=== PATIENT | female | born 1970 | race Caucasian/White ===

== ENCOUNTER → 2020-08-26 08:17 | Outpatient (BNVA) | payer BC, SELFPAY | PROVIDERS: PCP Internal Medicine; Visit Provider Internal Medicine | DX: I25.10 Atherosclerotic heart disease of native coronary artery without angina pectoris (principal); E78.5 Hyperlipidemia, unspecified; E66.01 Morbid (severe) obesity due to excess calories; Z95.1 Presence of aortocoronary bypass graft | CPT/HCPCS: 93005 ==

== ENCOUNTER → 2021-10-12 13:58 | Outpatient (BNVA) | payer BC, SELFPAY | PROVIDERS: PCP Physician Assistant; Visit Provider Internal Medicine | DX: I25.10 Atherosclerotic heart disease of native coronary artery without angina pectoris (principal); E78.5 Hyperlipidemia, unspecified; E66.01 Morbid (severe) obesity due to excess calories; Z95.1 Presence of aortocoronary bypass graft | CPT/HCPCS: 93005 ==

== ENCOUNTER 2023-03-06 12:35 | Outpatient (AMB) | payer BC, SELFPAY ==
--- NOTE | 2023-03-06 12:57 | A.OFFVIS_ITS ---
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 To recall, in the past, she had chest pain which led to diagnosis of non ST elevation myocardial infarction. Then underwent cardiac catheterization followed by bypass. Only risk factor is family history but nothing else of significance. Since last seen, no new complaints. 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 She has a treadmill that she walks on. Weight is still an issue and in fact it has gone up by several lb since last time. [facility] Surgical History History of coronary artery bypass graft x 3 (~05/10/18) Family History Father CVD (cardiovascular disease) Mother CVD (cardiovascular disease) Social History Patient Tobacco Use Status: Never used Tobacco Review of Systems Const Denies weakness ENT Denies dizziness Card Denies chest pain, Denies chest pain with activity, Denies syncope, Denies rapid heart rate, Denies pedal edema, Denies edema, Denies leg edema, Denies lightheadedness, Denies palpitations, Denies dyspnea, Denies dyspnea on exertion and Denies orthopnea Resp Denies cough, Denies dyspnea and Denies dyspnea on exertion GI Denies hematochezia and Denies change in stool character Musc Denies abnormal gait, Denies muscle cramps, Denies muscle weakness, Denies numbness, Denies radiating pain into limb and Denies tingling Neuro Denies abnormal gait, Denies dizziness, Denies syncope, Denies numbness, Denies tingling and Denies weakness Endo Denies palpitations Physical Exam Vital Signs: Last Vital Signs Pulse 76 03/06/23 12:58 BP 118/76 03/06/23 12:58 BMI result Body Mass Index 35.6 Const General: comfortable and no acute distress Orientation/consciousness: patient oriented x3 HEENT Other: Unremarkable Head: Yes normal to inspection Neck Neck: Yes normal visual inspection Chest Chest palpation & inspection: normal inspection of the chest Resp Auscultation: clear to auscultation bilaterally Cardio Palpation: normal PMI Heart sounds: S1 normal heart sound present, S2 normal heart sound present, no gallops, no murmurs and no rubs GI Palpation (GI): Soft to palpation Back/Spine/Pelvis Other: unremarkable Skin General skin exam: no rashes or lesions noted Neuro General: patient oriented x3 Extrem General: Yes normal to inspection Psych Mental Status: mental status grossly normal Office Procedures EKG Details: EKG with sinus rhythm at 76/Min; poor R-wave progression across anterior leads but otherwise unremarkable. This could be from body habitus; normal OK and corrected QT. Overall, no major changes from before. [id number], Complete Assessment & Plan Assessment & Plan (1) Atherosclerotic cardiovascular disease: Code(s): I25.10 - Atherosclerotic heart disease of [place] coronary artery without angina pectoris (2) Status post coronary artery bypass graft: Code(s): Z95.1 - Presence of aortocoronary bypass graft (3) Other and unspecified hyperlipidemia: Code(s): E78.5 - Hyperlipidemia, unspecified (4) Morbid obesity: Code(s): E66.01 - Morbid (severe) obesity due to excess calories Plan Seems to be doing okay from cardiac. Continue her current meds including aspirin, beta-blockers, statins and Zetia. Will need to get the most recent lipid profile from PCP. Otherwise, again encouraged losing weight as this is going to be a problem in the long run. She understands that. Follow-up in 1 year. If any issues in the lipids, we will contact her about that. Coding Level of Care Code Est Pt Level 3 (53808) Diagnoses Atherosclerotic cardiovascular disease I25.10 Status post coronary artery bypass graft Z95.1 Other and unspecified hyperlipidemia E78.5 Morbid obesity E66.01 CPT Codes EKG - CPT: 29199-[id number], Complete ([id number])
[2023-03-06 12:58] VITALS: BP 118/76; PULSE 76; BMI 35.6
== END 2023-03-06 13:48 | disposition home or self-care (01) ==
PROVIDERS: PCP Physician Assistant; Visit Provider Internal Medicine
DX: I25.10 Atherosclerotic heart disease of native coronary artery without angina pectoris (principal); Z95.1 Presence of aortocoronary bypass graft; E78.5 Hyperlipidemia, unspecified; E66.01 Morbid (severe) obesity due to excess calories
CPT/HCPCS: 93010; 99213

== ENCOUNTER → 2023-03-06 12:35 | Outpatient (BNVA) | payer BC, SELFPAY | PROVIDERS: PCP Physician Assistant; Visit Provider Internal Medicine | DX: I25.10 Atherosclerotic heart disease of native coronary artery without angina pectoris (principal); E78.5 Hyperlipidemia, unspecified; E66.01 Morbid (severe) obesity due to excess calories; Z68.35 Body mass index [BMI] 35.0-35.9, adult; Z95.1 Presence of aortocoronary bypass graft; Z79.82 Long term (current) use of aspirin; Z79.899 Other long term (current) drug therapy | CPT/HCPCS: 93005 ==

== ENCOUNTER 2024-03-06 12:39 | Outpatient (AMB) | payer OTHER, SELFPAY ==
[2024-03-06 12:55] VITALS: BP 124/68; PULSE 83; BMI 35.2
--- NOTE | 2024-03-06 12:55 | A.OFFVIS_ITS ---
Vital Signs 03/06/24 12:55 Height 5 ft 5 in Weight 211 lb 10.3 oz BMI 35.2 BP 124/68 Blood Pressure Location Lt brachial Position Sitting Pulse 83 Pulse Source Monitor Intake Visit Reasons: 1 yr f/up Allergies No Known Allergies Allergy (Verified 03/06/23 12:59) Medication List - Last Reconciled 03/06/24 by Naren Walls MD amitriptyline 25 mg PO BEDTIME aspirin 81 mg PO DAILY ezetimibe 10 mg PO DAILY metoprolol tartrate 50 mg PO BID rosuvastatin 40 mg PO DAILY HPI Comments Details: Enedelia returns for follow-up regarding coronary disease and bypass surgery. To recall, in the past, she had chest pain which led to diagnosis of non ST elevation myocardial infarction. Then underwent cardiac catheterization followed by bypass. Only risk factor is family history but nothing else of significance. Overall, she states she feels good. No new complaints. [facility] Surgical History History of coronary artery bypass graft x 3 (~05/10/18) Family History Father CVD (cardiovascular disease) Mother CVD (cardiovascular disease) Social History Patient Tobacco Use Status: Never used Tobacco Review of Systems Const Denies weakness ENT Denies dizziness Card Denies chest pain, Denies chest pain with activity, Denies syncope, Denies rapid heart rate, Denies pedal edema, Denies edema, Denies leg edema, Denies lightheadedness, Denies palpitations, Denies dyspnea, Denies dyspnea on exertion and Denies orthopnea Resp Denies cough, Denies dyspnea and Denies dyspnea on exertion GI Denies hematochezia and Denies change in stool character Musc Denies abnormal gait, Denies muscle cramps, Denies muscle weakness, Denies numbness, Denies radiating pain into limb and Denies tingling Neuro Denies abnormal gait, Denies dizziness, Denies syncope, Denies numbness, Denies tingling and Denies weakness Endo Denies palpitations Physical Exam Vital Signs: Last Vital Signs Pulse 83 03/06/24 12:55 BP 124/68 03/06/24 12:55 BMI result Body Mass Index 35.2 Const General: comfortable and no acute distress Orientation/consciousness: patient oriented x3 HEENT Other: Unremarkable Head: Yes normal to inspection Neck Neck: Yes normal visual inspection Chest Chest palpation & inspection: normal inspection of the chest Resp Auscultation: clear to auscultation bilaterally Cardio Palpation: normal PMI Heart sounds: S1 normal heart sound present, S2 normal heart sound present, no gallops, no murmurs and no rubs GI Palpation (GI): Soft to palpation Back/Spine/Pelvis Other: unremarkable Skin General skin exam: no rashes or lesions noted Neuro General: patient oriented x3 Extrem General: Yes normal to inspection Psych Mental Status: mental status grossly normal Office Procedures EKG Details: EKG with underlying sinus rhythm at 83/Min; rightward axis; nonspecific ST-T changes seen in the inferior as well as anterolateral leads. More prominent than in the past. [id number], Complete Assessment & Plan Assessment & Plan (1) Atherosclerotic cardiovascular disease: Code(s): I25.10 - Atherosclerotic heart disease of [place] coronary artery without angina pectoris Category: Medical (2) Status post coronary artery bypass graft: Code(s): Z95.1 - Presence of aortocoronary bypass graft Category: Surgical (3) Other and unspecified hyperlipidemia: Code(s): E78.5 - Hyperlipidemia, unspecified Category: Medical (4) Morbid obesity: Code(s): E66.01 - Morbid (severe) obesity due to excess calories Category: Medical Plan Seems to be doing okay from cardiac. Continue her current meds including aspirin, beta-blockers, statins and Zetia. We will request the most recent labs from PCP. As it has been more than 5 years since her bypass surgery and the EKGs also slig htly different from before, obtain cardiac workup including echocardiogram/stress test. We discussed about that today and she agrees. Weight is an ongoing issue and not clear if it is going to get better or not. If she is indeed able to lose weight, that will help. Orders: Orders CA echo transthoracic complete Today I25.10 - Atherosclerotic heart disease of [place] coronary artery without angina pectoris, Z95.1 - Presence of aortocoronary bypass graft CA stress test Today R07.2 - Precordial pain, Z95.1 - Presence of aortocoronary bypass graft NM cardiolite stress test Today R07.2 - Precordial pain, Z95.1 - Presence of aortocoronary bypass graft Coding Level of Care Code Est Pt Level 4 (58709) Diagnoses Atherosclerotic cardiovascular disease I25.10 Status post coronary artery bypass graft Z95.1 Other and unspecified hyperlipidemia E78.5 Morbid obesity E66.01 CPT Codes EKG - CPT: 64109-[id number], Complete ([id number])
== END 2024-03-06 13:20 | disposition home or self-care (01) ==
PROVIDERS: PCP Physician Assistant; Visit Provider Internal Medicine
DX: I25.10 Atherosclerotic heart disease of native coronary artery without angina pectoris (principal); Z95.1 Presence of aortocoronary bypass graft; E78.5 Hyperlipidemia, unspecified; E66.01 Morbid (severe) obesity due to excess calories
CPT/HCPCS: 93010; 99214

== ENCOUNTER → 2024-03-06 12:39 | Outpatient (BNVA) | payer BC, SELFPAY | PROVIDERS: PCP Physician Assistant; Visit Provider Internal Medicine | DX: I25.10 Atherosclerotic heart disease of native coronary artery without angina pectoris (principal); E78.5 Hyperlipidemia, unspecified; E66.01 Morbid (severe) obesity due to excess calories; Z79.82 Long term (current) use of aspirin; Z79.899 Other long term (current) drug therapy; Z95.1 Presence of aortocoronary bypass graft | CPT/HCPCS: 93005 ==

== ENCOUNTER → 2024-06-19 07:53 | Outpatient (REF) | payer OTHER, SELFPAY ==
--- NOTE | 2024-06-19 07:59 | CA_ITS ---
Acquisition Time: 2024-06-19 08:05:23 Total Exercise Time: 00:08:30 Test Indications: CAD, CABG Medications: SEE H&P Protocol: GORDON Max HR: 142 BPM 85% of Pred: 166 BPM Max BP: 148/72 mmHG Max Work Load: 10.1 METS Exercise stress test with exercise 8 mins 30 secs of Gordon Protocol, achieving 85% MPHR, with reports of mild SOB, no chest pain, with isolated PACs, with normotensive response to exercise. With ST depression and T wave inversion noted inferiorly and anteroalterally with exercise meeting criteria for ishemia. In recocery, breathing quickly returned to baseline. ST segemnt improving slowly in recovery. Nuclear images pending. Test reviewed with Dr. Walls. Referred By: Naren Walls Electronically Signed By: Shahram Ellington
--- OUTSIDE RECORDS SUMMARY | 2024-06-19 08:01 | XMS_ITS | Data Portability ---
Author Organization [facility], , [facility] Address [address] [place] [address] Care Team Providers Care Assistant Women'S Basketball Coach Name Role Phone MIMI DOMINGUEZ Glass Blower Helper BRI ORTIZ Sports Medicine LLOYD PEREZ Primary Care Provider [phone] Assessment No assessment recorded. Plan of Treatment Reminders Order Date Submit Date Provider Last Modified By Organization Details Last Modified Time Details Appointments Mammog nicolás, Screen ing 2024 02:30P M [facility] Utility Systems Repairer Operator Not available Not available Not available LAB Follow -Up 2024 06:40A M [facility] Not available Not available Not available Medica l Manage ment 30 2024 04:30P M LLOYD PEREZ PA-C Not available Not available Not available LAB Follow -Up 2025 06:40A M [facility] Not available Not available Not available Wellne ss Visit 30 2025 09:30A M LLOYD PEREZ PA-C Not available Not available Not available Lab lipid panel, serum [address] [facility], [address] [place] [address], [address], 06/10/2024 17:57:39 CMP, serum or plasma [address] [facility], [address] [place] [address], [address], 06/10/2024 17:57:39 lipid panel, serum [address] [facility], [address] [place] [address], [address], 06/10/2024 17:57:39 CMP, serum or plasma [address] [facility], [address] [place] [address], [address], 06/10/2024 17:57:39 TSH, serum or plasma [address] [facility], [address] [place] [address], [address], 06/10/2024 18:00:54 HbA1c (hemog lobin A1c), blood [address] [facility], [address] [place] [address], [address], 06/10/2024 18:00:54 Referral physic al therap ist referr al - Sylvia ral mid-sanchez bstanc e achill es tendin osisHi p and core streng thenin gImpro ve glute activa tionEc centri c ends down checker ior chain streng thenin g (Shaquille dson protoc ol)Pos terior chain stretc hingMa nual therap y and modali ties PRNHEP 2023 024 [email or web address] [facility], [address] [place] [address], [place], [address], 08/01/2023 08:45:47 sports medici ne referr al 2023 024 [email or web address] Bri Ortiz MD, [address] [place] [address], [address], 06/27/2023 09:34:09 physic al therap ist referr al 2023 024 [email or web address] [facility] ([facility]), [address], [place], [address], 06/25/2023 10:41:54 otolar yngolo gist referr al 2023 024 [email or web address] [facility], [address], [address], [place], [address], 03/23/2023 08:55:01 Procedures None record ed. Surgeries None record ed. Imaging MAMMO, screen ing, tomosy nthesi s, bilate ral - DUE SEPTEMBER 20242024 025 [facility] (Imaging), [address], [place], [address], 06/11/2024 09:05:41 Medication Orders ketoco nazole 2 % topica l cream 2022 023 [email or web address] 0 [facility], [address] [place], [address], 06/10/2024 16:06:33 nystat in 100,00 0 unit/g nicolás topica l powder 2022 023 [email or web address] 0 [facility], [address] [place], [address], 06/10/2024 16:06:41 Patient TargetsNo targets recorded. Patient Instructions Encounter Date Encounter Id Patient Instructions Last Modified By Organization Details Last Modified Time 07/30/2023 [id number] Do physical therapy with your son Let me know if you would like a referral to formal therapy Try wearing heel lifts Follow-up in 12 weeks for a recheck Not available 07/30/2023 14:32:55 All of the patients questions were answered and they understand the plan of care. Thank you for allowing me to participate in the care of your patient. ? ? ?Please feel free to contact me with any questions regarding their care. Not available 07/30/2023 14:33:00 Reason for Referral Corporate Compliance Manager Referral fo r Tinnitus of left ear Referring Physician: Lulú Mccarthy, Family Medicine, Encounter Date: 03/21/2023 Referring Physician: Amparo Woodward, Family Medicine, Encounter Date: 06/21/2023 Physical Therapist Referral for Achilles tendinitis Referring Physician: Barbara Woodward, Family Medicine, Encounter Date: 06/21/2023 Physical Therapist Referral for Achilles tenosynovitis Bilateral mid-substance achilles tendinosisHip and core strengtheningImprove glute activationEccentric posterior chain strengthening (Alfredson protocol)Posterior chain stretchingManual therapy and modalities PRNHEP Referring Physician: Bri Ortiz, Sports Medicine, Encounter Date: 07/30/2023 Results Created Date Observation Date Name Description Value Unit Range Abnormal Flag Note LastModifiedBy Organization Detail LastModifiedTime 06/06/1906/05/2024 CBC WBC 7.23 K/? ? ?L 3.98-1 0.04 Not Available [address], [address], 06/05/2024 10:30:06 06/06/1906/05/2024 CBC RBC 5.31 M/? ? ?L 3.93-5 .22 high Not Available [address], [address], 06/05/2024 10:30:06 06/06/1906/05/2024 CBC HGB 15.6 g/dL 11.2-1 5.7 Not Available [address], [address], 06/05/2024 10:30:06 06/06/1906/05/2024 CBC HCT 47.5 % 34.1-4 4.9 high Not Available [address], [address], 06/05/2024 10:30:06 06/06/1906/05/2024 CBC MCV 89.5 fL 79.4-9 4.8 Not Available [address], [address], 06/05/2024 10:30:06 06/06/1906/05/2024 CBC MCH 29.4 pg 25.6-3 2.2 Not Available [address], [address], 06/05/2024 10:30:06 06/06/1906/05/2024 CBC MCHC 32.8 g/dL 32.2-3 5.5 Not Available [address], [address], 06/05/2024 10:30:06 06/06/1906/05/2024 CBC plt 421 K/? ? ?L 182-36 9 high Not Available [address], [address], 06/05/2024 10:30:06 06/06/1906/05/2024 CBC MPV 10.6 fL 9.4-12 .3 Not Available [address], [address], 06/05/2024 10:30:06 06/06/1906/05/2024 CBC neut% 58.7 % 34.0-7 1.1 Not Available [address], [address], 06/05/2024 10:30:06 06/06/1906/05/2024 CBC neut# 4.24 1.56-6 .13 Not Available [address], [address], 06/05/2024 10:30:06 06/06/1906/05/2024 CBC lymph % 28.9 % 19.3-5 1.7 Not Available [address], [address], 06/05/2024 10:30:06 06/06/1906/05/2024 CBC lymph # 2.09 K/? ? ?L 1.18-3 .74 Not Available [address], [address], 06/05/2024 10:30:06 06/06/19 25 06/05/2024 CBC mono% 8.2 % 4.7-12 .5 Not Available [address], [address], 06/05/2024 10:30:06 06/06/19 25 06/05/2024 CBC mono# 0.59 0.24-0 .56 high Not Available [address], [address], 06/05/2024 10:30:06 06/06/19 25 06/05/2024 CBC eo% 3.3 % 0.7-5. 8 Not Available [address], [address], 06/05/2024 10:30:06 06/06/19 25 06/05/2024 CBC eo# 0.24 0.04-0 .36 Not Available [address], [address], 06/05/2024 10:30:06 06/06/19 25 06/05/2024 CBC baso% 0.8 % 0.1-1. 2 Not Available [address], [address], 06/05/2024 10:30:06 06/06/19 25 06/05/2024 CBC baso# 0.06 0.00-0 .08 Not Available [address], [address], 06/05/2024 10:30:06 06/06/19 25 06/05/2024 CBC RDW-CV 12.8 % 11.7-1 4.4 Not Available [address], [address], 06/05/2024 10:30:06 06/06/19 25 06/05/2024 CBC Ig% 0.100 % 0.000- 1.500 Ig % >0.5 Indic ates possi ble Left Shift Not Available [address], [address], 06/05/2024 10:30:06 06/06/19 25 06/05/2024 CBC Ig# 0.010 0.000- 0.093 Not Available [address], [address], 06/05/2024 10:30:06 06/06/19 25 06/05/2024 CBC NRBC% 0.0 % 0.0-0. 2 Not Available [address], [address], 06/05/2024 10:30:06 06/06/19 25 06/05/2024 CBC NRBC# 0.000 0.000- 0.012 Not Available [address], [address], 06/05/2024 10:30:06 06/06/19 25 06/05/2024 COMP. METAB OLIC PANEL glucose 96 mg/dL 70-100 Not Available [address], [address], 06/05/2024 15:36:26 06/06/19 25 06/05/2024 COMP. METAB OLIC PANEL BUN 12 mg/dL 7-18 Not Available [address], [address], 06/05/2024 15:36:26 06/06/19 25 06/05/2024 COMP. METAB OLIC PANEL creatinine 0.8 mg/dL 0.8-1. 3 Not Available [address], [address], 06/05/2024 15:36:26 06/06/19 25 06/05/2024 COMP. METAB OLIC PANEL B/C 15.0 ratio Not Available [address], [address], 06/05/2024 15:36:26 06/06/19 25 06/05/2024 COMP. METAB OLIC PANEL GFR >=60ML /MIN mL/mi n normal >=60m L/min - Milagros l or midly reduc ed <60mL /min- Decre ased kidne y funct ion <15mL /min - Kidne y failu re [facility] calcu lates estim ated Glome rular Filtr ation Rate (eGFR ) using the Chron ic Kidne y Disea se Epide miolo gy Colla borat ion (CKD- EPI) Equat ion (Natty r et. al 2020) as recom ellyn d by the Natio nal Kidne y Found ation . eGFR is based on age, serum creat inine , and sex. CKD-E PI does not calcu late eGFR by race, does not apply to child jeannette (age <18 years ), and shoul d not be used in pregn caryl. Not Available [address], [address], 06/05/2024 15:36:26 06/06/19 25 06/05/2024 COMP. METAB OLIC PANEL sodium 141 mmol/ L 136-14 5 Not Available [address], [address], 06/05/2024 15:36:26 06/06/19 25 06/05/2024 COMP. METAB OLIC PANEL potassium 5.4 mmol/ L 3.5-5. 1 high Not Available [address], [address], 06/05/2024 15:36:26 06/06/19 25 06/05/2024 COMP. METAB OLIC PANEL chloride 104 mmol/ L 96-107 Not Available [address], [address], 06/05/2024 15:36:26 06/06/19 25 06/05/2024 COMP. METAB OLIC PANEL anion gap 9.9 5.0-15 .0 Not Available [address], [address], 06/05/2024 15:36:26 06/06/19 25 06/05/2024 COMP. METAB OLIC PANEL CO2 27 mmol/ L 21-32 Not Available [address], [address], 06/05/2024 15:36:26 06/06/19 25 06/05/2024 COMP. METAB OLIC PANEL calcium 9.7 mg/dL 8.5-10 .3 Not Available [address], [address], 06/05/2024 15:36:26 06/06/19 25 06/05/2024 COMP. METAB OLIC PANEL total protein 7.9 g/dL 6.4-8. 2 Not Available [address], [address], 06/05/2024 15:36:26 06/06/19 25 06/05/2024 COMP. METAB OLIC PANEL albumin 4.4 g/dL 3.4-5. 0 Not Available [address], [address], 06/05/2024 15:36:26 06/06/19 25 06/05/2024 COMP. METAB OLIC PANEL globulin 3.5 g/dL Not Available [address], [address], 06/05/2024 15:36:26 06/06/19 25 06/05/2024 COMP. METAB OLIC PANEL A/G 1.3 ratio 0.8-2. 0 Not Available [address], [address], 06/05/2024 15:36:26 06/06/19 25 06/05/2024 COMP. METAB OLIC PANEL total bilirubin 0.60 mg/dL 0.00-1 .00 Not Available [address], [address], 06/05/2024 15:36:26 06/06/19 25 06/05/2024 COMP. METAB OLIC PANEL AST 32 U/L 0-37 Not Available [address], [address], 06/05/2024 15:36:26 06/06/1906/05/2024 COMP. METAB OLIC PANEL ALT 56 U/L 6-63 Not Available [address], [address], 06/05/2024 15:36:26 06/06/19 25 06/05/2024 COMP. METAB OLIC PANEL alk. phos. 98 U/L 50-136 Not Available [address], [address], 06/05/2024 15:36:26 06/06/19 25 06/05/2024 LIPID PANEL cholesterol 113 mg/dL <200 mg/dl Valeria able 200-2 39 mg/dl Borde rline High >240 mg/dl High Not Available [address], [address], 06/05/2024 15:36:28 06/06/19 25 06/05/2024 LIPID PANEL triglyceride s 57 mg/dL <150 mg/dL Milagros l 150-1 99 mg/dL Borde rline High 200-4 99 mg/dL High >500 mg/dL Very High Not Available [address], [address], 06/05/2024 15:36:28 06/06/1906/05/2024 LIPID PANEL direct HDL 39 mg/dL <40 mg/dl - Major Risk for CHD >60 mg/dl - Negat dangelo Risk for CHD Not Available [address], [address], 06/05/2024 15:36:28 06/06/19 25 06/05/2024 LDL - CALCU LATED LDL - calculated 63 RISK CATEG ORY LDL GOAL _ CHD or CHD Risk Equiv alent s <100 mg/dl (10-y ear risk >20%) 2+ Risk Facto rs <130 mg/dl (10-y ear risk <= 20%) 0-1 Risk Facto r? <160 mg/dl ? Almos t all peopl e with 0-1 risk facto r have a 10 year risk <10%, thus 10 year risk asses ment in peopl e with 0-1 risk facto r is not matthew lorenzo. Not Available [facility] [address] [facility], [place], [address], 06/05/2024 15:36:29 04/16/19 24 04/16/2023 MAMMO , scree valerie, tomos ynthe sis, bilat eral MAMMO, SCREEN , SHEILA, BILAT: 024. BI-RAD S: 1 CLINIC AL: 52-yea r old Female for Bilate ral Screen ing Mammog nicolás. No person al or first- degree family histor y of breast cancer . PRIOR EXAMS: Review ed previo us images from 2020, 2018, 2016 and 2013. MAMMOG JACKIE TECHNI QUE: 3D mammog jackie (tomos ynthes is) and 2D mammog jackie (C-vie w) images are genera safia. Images review ed with a CAD system . DENSIT Y B. There are scatte red areas of fibrog landul ar densit y. MAMMOG JACKIE FINDIN GS Bilate ral: No suspic ious mass, asymme try, microc alcifi cation , or other abnorm ality seen. CONCLU TAMARA * No eviden ce of malign caryl. RECOMM ENDATI ONS Bilate ral * Annual screen ing mammog jackie. ADMINI STRATI VE: A lay summar y was mailed to your patien constantino boo the result s and recomm endati ons for follow -up. OVERAL L ASSESS MENT CATEGO RY BI-RAD S-1: Negati ve. The [employer] recomm ends annual screen ing mammog jackie beginn ing at age 40 for women with averag e risk of breast cancer . ELECTR ONICAL LY SIGNED : Pancho Paniagua ms, M.D. on 2023 at 02:53: 20 PM Angelica bartlett Physic ace: Pancho Paniagua ms [email or web address] [facility] ([facility]) [address] [place], [address], 04/30/2023 09:21:41 Result Notes None recorded. 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 [facility] . LLOYD PEREZ PA-C [address] [place] [address] [place], [address], [facility] 5 16:55:46 Coronary arterios clerosis 80833880 Active 2018 CABG, 3 VESSEL Lulú Mccarthy MD [address] [place] [address] [place], [address], [facility] 4 15:03:16 Obese class II 67716740532 4105 Active 2024 LLOYD PEREZ PA-C [address] [place] [address] [place], [address], [facility] 5 17:58:48 Internal hemorrho ids 43543758 Completed 200601/15/2013 Carlos Reveles MD [address] [place] [address] [place], [address], [facility] 6 12:07:07 Contusio n 918259819 Completed 200307/06/2011 MD [place], [address], [facility] 6 12:07:07 Cough 25381729 Completed 07/06/2011 MD Lavon [place], [address], [facility] 6 12:07:07 Migraine without aura 18108908 [place], [address], [facility] 6 12:23:49 Benign neoplasm of choroid 81097872 Completed 200802/02/2017 [place], [address], [facility] 7 14:44:24 Acute cystitis 39808070 Completed 200207/06/2011 [place], [address], [facility] 6 12:07:07 Neck pain 68786987 Completed 200301/15/2013 [place], [address], [facility] 6 12:07:07 Acute pharyngi tis 771622078 Completed 07/06/2011 [place], [address], [facility] 6 12:07:07 Influenz a 0050036 Completed 07/06/2011 [place], [address], [facility] 6 12:07:07 Dizzines s 371394773 Completed 200307/06/2011 [place], [address], [facility] 6 12:07:07 Breast lump 53167878 Completed 200407/06/2011 [place], [address], [facility] 6 12:07:07 Acute upper respirat ory infectio n 15539539 Completed 07/06/2011 [place], [address], [facility] 6 12:07:07 Common cold 41665772 Completed 200207/06/2011 [place], [address], [facility] 6 12:07:07 On examinat ion - a rash Completed 200107/06/2011 [place], [address], [facility] 6 12:07:07 Brachial neuritis 88517045 Completed 200507/06/2011 [place], [address], [facility] 6 12:07:07 Bipolar I disorder 021556866 Completed 200407/03/2013 [place], [address], [facility] 6 12:07:07 Acute maxillar y sinusiti s 64828808 Completed 200507/06/2011 [place], [address], [facility] 6 12:07:07 Low back pain 990266903 Completed 200107/06/2011 Carlos Reveles MD [address] [place], [address], [facility] 6 12:07:07 Backache 733337275 Completed 200307/06/2011 [place], [address], [facility] 6 12:07:07 Acute bronchit is 98099700 Completed 200307/06/2011 Carlos Reveles MD [address] [place], [address], [facility] 6 12:07:07 Primary fibromya lgia syndrome 64361611 Completed 200107/06/2011 Carlos Reveles MD [address] [place], [place] [address], [address], [facility] 6 12:07:07 Streptoc occal sore throat 11099197 Completed 200507/06/2011 Carlos Reveles MD [address] [place] [address] [place], [address], [facility] 6 12:07:07 Viral upper respirat ory tract infectio n 011456193 Completed 200507/06/2011 Carlos Reveles MD [address] [place] [address] [place], [address], [facility] 6 12:07:07 Pain of breast 09023214 Completed 200407/06/2011 Carlos Reveles MD [address] [place] [address] [place], [address], [facility] 6 12:07:07 Malaise and fatigue 789142213 Completed 200507/06/2011 Carlos Reveles MD [address] [place] [address] [place], [address], [facility] 6 12:07:07 Problem Notes None recorded. Procedures Surgical History Date Name Laterality Status Provider Name and Address Organization Details Recorded Time 09/10/19 22 Alcohol use screening completed NITO BLANCO PA-C [address] [place] [address], [address], [facility] 09/09/2021 09:39:56 09/10/19 22 Depression Screening completed NITO BLANCO PA-C [address] [place], [place] [address], [address], [facility] 09/09/2021 09:40:02 10/14/19 21 Tassoni - Colonoscopy completed Zachariah Ogden MD [address] [place] [address], [address], [facility] 10/13/2020 13:18:48 04/29/19 21 prevention-cardio vascular risk reduction counseling completed Rita Hook CMA [facility] 04/28/2020 12:00:30 04/29/19 21 prevention-annual alcohol misuse screening completed Rita Hook [facility] 04/28/2020 12:00:30 11/04/19 20 32847: Therapeutic Exercise completed Trista Raymond PT, DPT, [address], [address], [facility] 11/04/2019 15:57:02 10/17/19 20 41831: Therapeutic Exercise completed Trista Raymond PT, DPT, CSC [address] [place] [address], [address], [facility] 10/17/2019 09:16:11 10/06/19 20 43039: Therapeutic Exercise completed Trista Raymond PT, DPT, [address], [address], [facility] 10/06/2019 13:46:53 09/29/19 20 Physical Activity Counselling completed Trista Raymond PT, DPT, [address], [address], [facility] 09/29/2019 12:19:19 09/29/19 20 72272: PT Eval, Moderate Complexity completed Trista Raymond PT, DPT, [address], [address], [facility] 09/29/2019 11:48:35 05/21/19 19 Post hospital/SNF follow-up/Transit ional Care completed Orlando Unger [facility] 05/20/2018 10:48:09 05/11/19 19 CABG completed Lulú Mccarthy MD [address] [place] [address], [address], [facility] 03/21/2023 15:05:46 10/31/19 18 45444: Therapeutic Exercise completed Trista Hanks PT, DPT, [address], [address], [facility] 10/30/2017 16:12:53 10/31/19 18 Neuromuscular re-education completed Trista Hanks PT, DPT, [address], [address], [facility] 10/30/2017 15:51:45 10/24/19 18 65702: Manual Therapy completed Trista Hanks, PT, DPT, [address], [address], [facility] 10/23/2017 14:24:30 10/24/19 18 Neuromuscular re-education completed Trista Hanks, PT, DPT, CSCS [address] [place] [address], [address], [facility] 10/23/2017 14:24:30 10/17/19 18 65549: Manual Therapy completed Trista Hanks PT, DPT, CSCS [address] [place] [address], [address], [facility] 10/16/2017 10:15:25 10/17/19 18 Neuromuscular re-education completed Trista Hanks PT, DPT, CSCS [address] [place] [address], [address], [facility] 10/16/2017 10:15:27 10/10/19 18 73497: Mechanical Traction completed Trista Hanks PT, DPT, CSCS [address] [place] [address], [address], [facility] 10/09/2017 09:47:00 10/10/19 18 15048: Therapeutic Activities - Direct 1:1 completed Trista Hanks, PT, DPT, CSCS [address] [place] [address], [address], [facility] 10/09/2017 10:20:41 09/19/19 18 77951: Mechanical Traction completed Trista Hanks, PT, DPT, CSCS [address] [place] [address], [address], [facility] 09/18/2017 12:55:31 09/19/19 18 67466: Therapeutic Activities - Direct 1:1 completed Trista Hanks, PT, DPT, CSCS [address] [place] [address], [address], [facility] 09/18/2017 12:57:19 09/14/19 18 41630: Mechanical Traction completed Trista Hanks, PT, DPT, CSCS [address] [place] [address], [address], [facility] 09/13/2017 15:51:53 09/14/19 18 09815: Therapeutic Activities - Direct 1:1 completed Trista Hanks, PT, DPT, CSCS [address] [place] [address], [address], [facility] 09/13/2017 16:10:47 09/08/19 18 41674: Manual Therapy completed Trista Hanks, PT, DPT, CSCS [address] [place] [address], [address], [facility] 09/07/2017 12:17:42 09/08/19 18 59782: E-Stim - Unattended completed Trista Hanks, PT, DPT, CSCS [address] [place] [address], [address], [facility] 09/07/2017 12:17:05 09/06/19 18 Physical Activity Counselling completed Trista Hanks, PT, DPT, CSCS [address] [place] [address], [address], [facility] 09/05/2017 15:31:29 09/06/19 18 09512: PT Eval, Moderate Complexity completed Trista Hanks, PT, DPT, CSCS [address] [place] [address], [address], [facility] 09/05/2017 15:32:11 04/01/19 18 Nebulizer Tx completed Genet Love LPN [facility] 04/01/2017 12:05:48 04/15/19 13 Shave Biopsy completed Vikash Pendleton PA-C [address] [place] [address], [address], [facility] 04/15/2012 08:18:19 02/23/20 09 Nebulizer Tx completed Enedelia Umanzor CMA [facility] 02/22/2009 09:13:02 02/26/19 01 Tubal Ligation completed Lulú Mccarthy MD [address] [place] [address], [address], [facility] 03/21/2023 15:04:48 Imaging Results Imaging Date Name Status LastModified by Organiz ation Details LastModified Time 04/16/2023 MAMMO, screening, tomosynthesis, bilateral completed [id number] [facility] ([facility]) [address], [place], [address], 04/30/2023 09:21:41 Procedure Notes None recorded. Medical Equipment None Reported. Allergies No known drug allergies Medications Name Sig Start Date Stop Date Status Note LastModified by Organization Details LastModified Time atorvasta tin 80 mg tablet Take 1 tablet every day by oral route. 11/14 completed Not Available Not Available Not Available prednison e 10 mg tablet PT HAS WRITTEN INSTRUCT IONS 08/28 completed Not Available Not Available Not Available azithromy carrington 250 mg tablet TAKE 2 TABLETS (500 MG) BY ORAL ROUTE ONCE DAILY FOR 1 DAY THEN 1 TABLET (250 MG) BY ORAL ROUTE ONCE DAILY FOR 4 DAYS 08/28 completed 04/06/17 Tomorrow is last dose. Not Available Not Available Not Available Lasix 40 mg tablet Take 1 tablet every day by oral route. 06/18 completed Started at [facility] Not Available Not Available Not Available sumatript an 25 mg tablet TAKE 1 TABLET BY MOUTH WITH FLUIDS AT ONSET OF MIGRAINE . MAY REPEAT IN 2 HOURS IF MIGRAINE RETURNS 05/20 completed not using 05/20/18- tt Not Available Not Available Not Available prednison e 20 mg tablet 3 tabs daily x 5 days; then 2 tabs x 2 days and 1 tab x 2 days 04/06 completed Not Available Not Available Not Available rizatript an 10 mg tablet TAKE ONE TABLET BY MOUTH AT FIRST SIGN OF HEADACHE active Not Available Not Available No t Available topiramat e 25 mg tablet 1 PO HS FOR 1ST WEEK THEN INCREASE BY 25 MG WEEKLY TIL AT 50 MG BID active Not Available Not Available No t Available Atrovent 42 mcg (0.06 %) nasal spray [place] 2 sprays in each nostril by intranas al route 3 times per day PRN 2015 active Not Available Not Available Not Avai lable clopidogr el 75 mg tablet Take 1 tablet every day by oral route. 09/22 completed Not Available Not Available Not Available sulfameth oxazole 800 mg-trimet hoprim 160 mg tablet 01/26 completed Not Available Not Available Not Available aspirin 81 mg tablet,de layed release Take 1 tablet every day by oral route. 2018 active Started at [facility] Not Available Not Available Not Available tramadol 50 mg tablet Take 1 tablet every 6 hours by oral route as needed. 06/18 completed Not Available Not Available Not Available triamcino lone acetonide 0.1 % topical cream APPLY A THIN LAYER TO THE AFFECTED AREA(S) BY TOPICAL ROUTE 2 TIMES PER DAY x 2 WEEKS 06/20 completed Not Available Not Available Not Available potassium chloride ER 20 mEq tablet,ex tended release(p art/cryst ) 06/18 completed Not Available Not Available Not Available codeine 10 mg-guaife nesin 200 mg/5 mL oral liquid Take 10 mL every 4 hours by oral route. 10/26 completed Not Available Not Available Not Available amitripty line 25 mg tablet TAKE ONE TABLET BY MOUTH ONCE DAILY AT BEDTIME 2024 active Not Available Not Available Not Avai lable benzonata te 100 mg capsule Take 1 capsule 3 times a day by oral route as needed. 04/01 completed Not Available Not Available Not Available ferrous sulfate 325 mg (65 mg iron) tablet Take 1 tablet (325 mg) by oral route 2 times per day 01/26 completed Not Available Not Available Not Available metoprolo l tartrate 50 mg tablet Take 1 tablet Twice daily by oral route active Not Available Not Available No t Available mupirocin calcium 2 % topical cream APPLY A SMALL AMOUNT TO THE AFFECTED AREA BY TOPICAL ROUTE 2 TIMES PER DAY FOR 10 DAYS 09/21 completed Not Available Not Available Not Available docusate sodium 100 mg capsule Take 1 capsule twice a day by oral route. 08/22 completed Started at [facility] Not Available Not Available Not Available betametha joelle, augmented 0.05 % topical ointment active Not Available Not Available Not Available aspirin 81 mg chewable tablet Chew for 4 tablets once in office 05/17 completed Not Available Not Available Not Available Tylenol 325 mg tablet Take 3 tablets every 6 hours by oral route. 08/22 completed Started at [facility] Not Available Not Available Not Available codeine 10 mg-guaife nesin 100 mg/5 mL oral liquid 1 OR 2 TSP PO Q 4H PRN NIGHT COUGH 08/28 completed Not Available Not Available Not Available mupirocin 2 % topical ointment 09/21 completed Not Available Not Available Not Available gabapenti n 100 mg capsule Take 1 capsule 3 times a day by oral route. 06/18 completed Started at [facility] Not Available Not Available Not Available sumatript an 20 mg/actuat ion nasal spray 01/26 completed Not Available Not Available Not Available ketoconaz ole 2 % topical cream APPLY TO THE AFFECTED AREA(S) BY TOPICAL ROUTE ONCE DAILY 06/10 completed finished course 07/30/23 Not Available Not Available Not Available fluticaso ne propionat e 50 mcg/actua tion nasal spray,jeffery pension Inhale 2 spray in each nostril by intranas al route once daily 06/20 completed not taking at this time 01/21/23 jF Not Available Not Available Not Available doxycycli ne hyclate 100 mg tablet 08/22 completed Not Available Not Available Not Available naproxen 500 mg tablet 08/22 completed Not Available Not Available Not Available ezetimibe 10 mg tablet Take 1 tablet every day by oral route for 60 days. active Not Available Not Available No t Available Flexeril 5 mg tablet Take 1 tablet (5 mg) by oral route 3 times per day PRN, NECK PAIN 2009 active Not Available Not Available Not Avai lable rosuvasta tin 40 mg tablet TAKE ONE TABLET BY MOUTH AT BEDTIME 2024 active Not Available Not Available Not Avai lable topiramat e 50 mg tablet 1 1/2 TABS IN AM AND 1 PO IN PM 01/26 completed Not Available Not Available Not Available Nyamyc 100,000 unit/gram topical powder APPLY TO THE AFFECTED AREA(S) BY TOPICAL ROUTE 2 TIMES PER DAY 06/10 completed finished course 07/30/23 Not Available Not Available Not Available multivita min active Not Available Not Available Not Available ProAir HFA 90 mcg/actua tion aerosol inhaler 2 PUFFS Q4H PRN COUGH 08/28 completed Not Available Not Available Not Available potassium chloride ER 20 mEq tablet,ex tended release Take 1 tablet every day by oral route. 06/18 completed Started at [facility] Not Available Not Available Not Available Fluvirin (PF) 45 mcg (15 mcg x 3)/0.5 mL intramusc ular syringe VACCINAT ION ADMINIST ERED BY [facility] 02/02 completed Not Available Not Available Not Available Flucelvax Quad (PF) 60 mcg (15 mcg x 4)/0.5 mL IM syringe 05/15 completed Not Available Not Available Not Available Flucelvax Quad (PF) 60 mcg (15 mcg x 4)/0.5 mL IM syringe 03/19 completed Not Available Not Available Not Available Flucelvax Quad (PF) 60 mcg (15 mcg x 4)/0.5 mL IM syringe VACCINAT ION ADMINIST ERED BY [facility] 11/04 completed Not Available Not Available Not Available Vitals Date Recorded Body height Body temperature Heart rate Oxygen saturation Oxygen saturation in Arterial blood by Pulse oximetry Respiratory rate Systolic blood pressure Diastolic blood pressure Provider Name and Address Organization Details Last Updated DateTime 3 164.47 cm 98.3 [degF] 69 /min 98 % 98 % 12 /min 110 mm[Hg] 68 mm[Hg] Andria Garcia MA [facility] 3 09:11:45 Date Recorded Body height Body mass index (BMI) Body weight Heart rate Systolic blood pressure Diastolic blood pressure Provider Name and Address Organization Details Last Updated DateTime 4 164.47 cm 34.5 kg/m2 83035.0 3 g 78 /min 112 mm[Hg] 72 mm[Hg] Enedelia Bell MA [facility] 4 16:21:33 Date Recorded Body height Body mass index (BMI) Body weight Heart rate Oxygen saturation Oxygen saturation in Arterial blood by Pulse oximetry Systolic blood pressure Diastolic blood pressure Provider Name and Address Organization Details Last Updated DateTime 4 164.47 cm 34 kg/m2 66532.2 5 g 86 /min 99 % 99 % 128 mm[Hg] 80 mm[Hg] BEATRICE Gee [facility] 4 16:05:34 Date Recorded Body height Systolic blood pressure Diastolic blood pressure Provider Name and Address Organization Details Last Updated DateTime 07/30/2023 164.47 cm 122 mm[Hg] 70 mm[Hg] Ewelina Miller [facility] 07/30/2023 14:11:12 Date Recorded Body height Body mass index (BMI) Body weight Heart rate Oxygen saturation Oxygen saturation in Arterial blood by Pulse oximetry Systolic blood pressure Diastolic blood pressure Provider Name and Address Organization Details Last Updated DateTime 164.47 cm 35.7 kg/m2 45054.1 7 g 80 /min 97 % 97 % 116 mm[Hg] 70 mm[Hg] Yessi Conde CMA [facility] 5 16:11:31 Social History Question Answer Notes LastModified by Organizat ion Details LastModified Time Tobacco Smoking Status Never Smoker 06/30/21 AL09/18/22MV/ MV 5fc Yessi Conde CMA [facility] 06/10/2024 16:09:43 Do You Have An Advance Directive? No 10/26/2009 Given Form To Complete [email or web address] Information not available 10/26/2009 What Is Your Level Of Alcohol Consumption? Occasional 03/19/19 JI Very Occasional Information not available 04/28/2020 Are You Currently Employed? Yes 06/10/24fc [email or web address] Information not available 06/10/2024 What Type Of Diet Are You Following? REGULAR 06/10/24fc Information not available 06/10/2024 Which Illicit Or Recreational Drugs Have You Used? None Information not available 04/28/2020 Do You Or Have You Ever Used E-cigarettes Or Vape? 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 [employer]. 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 0 [email or web address] Information not available 06/18/2018 Are There Any Guns Present In Your Home? No [email or web address] Information not available 01/12/2011 Live Alone Or With Others? With Others [email or web address] Information not available 01/12/2011 Patient Has Health Care Proxy Signed And In Chart Yes Spouse cary Information not available 03/08/2015 Marital Status Information not available 01/12/2011 Mosquito Repellent Used Routinely Yes [email or web address] Information not available 01/12/2011 What Was The Date Of Your Most Recent Tobacco Screening? 06/10/2024 09/18/22MV44/2 07/19MV [email or web address] Information not available 06/10/2024 How Many Children Do You Have? 4 Triplets (age 18) And Another Son (21), 4 Boys, [email or web address] Information not available 02/22/2009 Seat Belts Used Routinely Yes [email or web address] Information not available 01/12/2011 Are You Sexually Active? Yes Information not available 03/19/2019 Smoke Alarm In Home Yes [email or web address] Information not available 01/12/2011 Do You Or Have You Ever Used Smokeless Tobacco? Never Used Smokeless Tobacco Information not available 06/30/2021 How Much Tobacco Do You Smoke? No Information not available 06/30/2021 General Stress Level Low [email or web address] Information not available 01/12/2011 Do You Use Sunscreen Routinely? Yes [email or web address] Information not available 01/12/2011 How Many Years Have You Smoked Tobacco? 0 Information not available 06/30/2021 Do You Or Have You Ever Used Any Other Forms Of Tobacco Or Nicotine? No [email or web address] Information not available 01/21/2023 Sex: Female Functional Status None recorded. Mental Status None recorded. Family History Relationship Description Onset Age of this Age Resolved Age Notes LastModified by Organization Details LastModified Time Brother Coronary arterioscler osis 55 [email or web address] Not available 2023 16:40:02 Father Glaucoma Not available 03/19/2019 16:06:00 Father Coronary arterioscler osis [email or web address] Not available 2023 16:39:47 Mother Coronary arterioscler osis [email or web address] Not available 2023 16:39:42 Notes:Hypertension maternal and paternal grandmother. Stroke paternal grandmother. Cancer maternal aunt? Melanoma. Migraines mother. Medical History Condition Response Migraine Headaches Y Gynecological History Statement/Question Response Date of LMP 04/12/2020 Definite Obstetrics History GPAL:G 0 P 0 0 0 0 Immunizations Vaccine Type Date Status Note Provider Nam e and Address Organization Details Recorded Time influenza, unspecified formulation 6 completed Not Available [facility] 01/11/2011 05:21:29 Influenza, split virus, trivalent, preservative 2 completed Not Available [facility] 03/15/2019 02:18:33 Influenza, split virus, quadrivalent, PF 5 completed Not Available [facility] 03/15/2019 02:20:12 Influenza, split virus, quadrivalent, PF 7 completed Not Available [facility] 03/15/2019 02:38:51 influenza, unspecified formulation 6 completed Yessi Conde CMA null, [facility] 06/10/2024 08:42:41 Td (adult), 2 Lf tetanus toxoid, preservative free, adsorbed 9 completed Not Available [facility] 03/15/2019 02:31:12 Influenza, split virus, quadrivalent, preservative 8 completed Yessi Conde CMA null, [facility] 06/10/2024 08:42:41 Influenza, split virus, quadrivalent, preservative 9 completed Yessi Conde CARD FILER null, [facility] 06/10/2024 08:42:41 Influenza, split virus, quadrivalent, preservative 0 completed [facility] 08:42:41 Tdap 9 completed Not Available [facility] 03/15/2019 02:26:10 COVID-19 vaccine, vector-nr, [id number], PF, 0.5 mL 1 completed [facility] 08:44:01 COVID-19, mRNA, LNP-S, PF, 100 mcg/0.5mL dose or 50 mcg/0.25mL dose 1 completed [facility]/09[facility]2021 08:44:35 influenza, unspecified formulation 2 completed [facility] 03/10/2022 15:56:48 COVID-19 mRNA, bivalent, original/Omicron BA.1, Non-US Vaccine (Spikevax Bivalent), Moderna 2 completed [facility] 03/10/2022 16:00:38 zoster recombinant 2 completed [facility]i Conde [facility] 06/10/2024 08:42:41 zoster recombinant 2 completed Yessiaye Conde, [facility] 06/10/2024 08:42:41 influenza nasal, unspecified formulation 3 completed [facility]ed[facility] Bell [facility] 03/21/2023 15:42:41 COVID-19 mRNA, bivalent, original/Omicron BA.1, Non-US Vaccine (Spikevax Bivalent), Moderna 3 completed [facility] 03/21/2023 15:43:42 Influenza, MDCK, quadrivalent, PF 0 completed [facility]essi Conde, [facility] 06/10/2024 08:42:41 Influenza, MDCK, quadrivalent, PF 1 completed [facility]essi Conde, [facility] 06/10/2024 08:42:41 Influenza, MDCK, quadrivalent, PF 8 completed [facility]i Conde, [facility] 06/10/2024 08:42:41 Influenza, MDCK, quadrivalent, PF 3 completed Yessi Conde, CARD FILER null, [facility] 06/10/2024 08:42:41 Influenza, MDCK, quadrivalent, PF 2 completed Yessi Conde, CARD FILER null, [facility] 06/10/2024 08:42:41 Influenza, MDCK, quadrivalent, PF 9 completed Yessi Conde, CARD FILER null, [facility] 06/10/2024 08:42:41 COVID-19, mRNA, LNP-S, bivalent, PF, 50 mcg/0.5 mL or 25mcg/0.25 mL dose 2 completed Yessi Conde, CARD FILER null, [facility] 06/10/2024 08:42:41 COVID-19, mRNA, LNP-S, PF, 50 mcg/0.5 mL 3 completed Yessi Conde, CARD FILER null, [facility] 06/10/2024 08:42:41 Influenza, split virus, trivalent, PF 6 completed [facility]i Conde, [facility] 06/10/2024 08:42:41 Past Encounters Encounter ID Performer Location Encounter Start Date Encounter Closed Date Diagnosis/Indication Diagnosis SNOMED-CT Code Diagnosis ICD10 Code Diagnosis Note [id number] [facility] [place] [address] [place] [id number] 04/03/2001 08:00:00 03/18/2008 02:02:29 [id number] [facility] [place] [address] [place] [id number] 1 10/09/2001 15:01:09 03/18/2008 02:02:29 [id number] [facility] [place] [address] [place] [id number] 1 03/05/2002 08:56:54 03/18/2008 02:02:29 [id number] [facility] [address] [facility] [place] [id number] 1 03/20/2002 07:29:34 03/18/2008 02:02:29 [id number] [facility] [place] [address] [place] [id number] 1 05/13/2002 08:13:36 03/18/2008 02:02:29 [id number] [facility], OFFICE [address] [place] [id number] 07/21/2002 09:27:33 03/18/2008 02:02:29 [id number] [facility], OFFICE [address] [place] [id number] 04/03/2003 08:28:30 04/06/2003 08:47:38 [id number] [facility], OFFICE [address] [place] [id number] 1 05/05/2003 13:36:20 05/06/2003 09:15:27 [id number] Radiology , [facility] [address] [place] [address] 1 05/05/2003 14:34:02 05/05/2003 15:19:26 [id number] Radiology , [facility] [address] [place] [address] 1 05/05/2003 00:00:00 03/18/2008 02:02:29 [id number] Physical Therapy, [facility] [place] [id number] 1 05/13/2003 12:18:37 05/13/2003 12:57:09 [id number] Physical Therapy, [facility] [place] [address] 1 05/25/2003 07:57:15 05/25/2003 09:11:48 [id number] Physical Therapy, [facility] [place] [id number] 1 06/01/2003 11:58:29 06/01/2003 12:46:44 [id number] Physical Therapy, [facility] [place] [id number] 1 06/15/2003 08:52:59 06/15/2003 10:20:59 [id number] Physical Therapy, [facility] [place] [id number] 1 06/22/2003 09:06:11 06/22/2003 13:29:10 [id number] Physical Therapy, [facility] [place] [id number] 1 09/04/2003 08:50:21 09/04/2003 08:50:51 [id number] Physical Therapy, [facility] [place] [address] 1 09/07/2003 09:34:06 09/07/2003 09:36:11 [id number] [facility] [place] [address] [place] [address] 1 09/04/2003 08:07:56 09/08/2003 09:33:04 [id number] Physical Therapy, [facility] [address] [place] [id number] 09/09/2003 08:10:20 09/09/2003 08:32:22 [id number] Physical Therapy, [facility] [place] [address] 1 09/14/2003 09:18:45 09/14/2003 12:50:09 [id number] Physical Therapy, [facility] [address] [place] [id number] 1 09/16/2003 08:05:18 09/16/2003 08:30:53 [id number] [facility] [address] [place] [id number] 1 09/21/2003 09:13:50 09/21/2003 17:44:56 [id number] [facility] [address] [place] [id number] 1 10/07/2003 13:29:58 10/07/2003 17:40:18 [id number] [facility] [place] [address] [place] [id number] 1 06/03/2004 09:13:52 06/06/2004 09:07:44 [id number] [facility] - [facility] [address] [place] [address] 1 06/03/2004 10:07:17 06/03/2004 10:07:40 [id number] [facility] [address] [place] [id number] 1 08/08/2004 10:21:00 08/09/2004 09:42:06 [id number] [facility] [address] [place] [id number] 1 08/12/2004 13:31:06 08/12/2004 17:29:14 [id number] [facility] [address] [place] [id number] 1 04/04/2005 09:46:27 04/05/2005 07:35:03 [id number] [facility] [address] [place] [place] [id number] 1 11/14/2005 11:14:03 11/14/2005 13:55:49 [id number] [facility] [place] [address] [place] [place] [id number] 1 01/11/2006 16:23:01 01/12/2006 09:08:51 [id number] [facility] [place] [address] [place] [id number] 1 01/26/2006 16:17:34 01/29/2006 10:23:29 [id number] , [facility] [place] [address] [place] [id number] 1 01/29/2006 13:42:54 01/30/2006 08:23:16 [id number] LAB - [facility] [address] [place] [address] 1 01/31/2006 09:01:46 01/31/2006 09:01:49 [id number] Physical Therapy, [facility] [address] [place] [id number] 1 02/01/2006 13:58:40 02/01/2006 13:58:47 [id number] Radiology , [facility] [place] [id number] 1 02/01/2006 13:15:57 02/01/2006 13:38:32 [id number] Radiology , [facility] [address] [place] [id number] 1 02/01/2006 00:00:00 03/18/2008 02:02:29 [id number] Physical Therapy, [facility] [address] [place] [id number] 1 02/08/2006 14:06:06 02/08/2006 14:12:20 [id number] Physical Therapy, [facility] [place] [id number] 1 02/15/2006 14:01:18 02/15/2006 14:01:23 [id number] [facility] [place] [address] [place] [id number] 1 03/01/2006 13:11:39 03/02/2006 15:43:19 [id number] Physical Therapy, [facility] [address] [place] [id number] 1 03/13/2006 13:05:02 03/13/2006 13:05:14 [id number] [facility] [place] [address] [place] [address] 1 03/20/2006 12:38:42 03/21/2006 09:20:24 [id number] Physical Therapy, [facility] [place] [id number] 1 03/22/2006 11:16:00 03/22/2006 13:05:42 [id number] Physical Therapy, [facility] [place] [address] 1 04/02/2006 12:37:04 04/02/2006 12:37:17 [id number] Physical Therapy, [facility] [place] [id number] 1 04/09/2006 12:37:00 04/09/2006 12:37:14 [id number] Physical Therapy, [facility] A[place] ROSA [id number] 1 04/17/2006 07:54:45 04/17/2006 08:18:44 [id number] Physical Therapy, [facility] A[place] ROS[place] [id number] 1 04/24/2006 13:20:35 04/24/2006 13:20:49 [id number] Physical Therapy, [facility] A[place] ROSA [id number] 1 05/21/2006 12:35:53 05/21/2006 12:36:18 [id number] Physical Therapy, [facility] [place] [id number] 1 06/05/2006 12:33:06 06/05/2006 12:52:27 [id number] [facility] [place] [address] [place] [id number] 1 08/06/2006 13:31:56 08/07/2006 07:35:53 [id number] [facility] [place] [address] [place] [id number] 1 04/22/2008 15:41:37 04/27/2008 11:18:43 [id number] [facility] [place] [address] [place] [id number] 1 07/02/2008 15:35:49 07/03/2008 12:18:24 [id number] LAB - [facility] [place] [id number] 1 06/18/2008 07:10:08 06/18/2008 07:10:13 [id number] LAB - [facility] [place] [id number] 1 07/03/2008 08:14:32 07/03/2008 08:14:37 [id number] Eye Care, [facility] [place] [address] 1 10/12/2008 10:42:39 10/12/2008 12:08:39 [id number] [facility] [place] [address] [place] [id number] 1 02/22/2009 08:23:43 02/22/2009 15:43:00 [id number] , [facility] [place] [address] [place] [address] DR [place] ROSA [id number] 1 10/26/2009 14:56:24 10/26/2009 16:27:53 [id number] [facility] , [facility] [address] [place] [id number] 1 07/14/2011 14:36:46 07/18/2011 13:50:46 [id number] [facility] [address] [place] [id number] 1 07/14/2011 15:06:16 07/14/2011 16:12:09 [id number] Carlos Reveles MD [address] [place] [id number] 1 07/25/2011 15:28:46 07/25/2011 16:33:[id number] [place] [address] 1 10/16/2011 14:43:33 10/16/2011 15:30:09 [id number] Vikash Pendleotn PA-C [address] [place] [id number] 1 04/15/2012 07:34:44 04/15/2012 08:19:53 [id number] Sharmaine Palma LPN [address] [place] [id number] 1 08/30/2012 09:55:37 08/30/2012 10:56:[id number] [place] [address] 1 07/03/2013 09:19:22 07/03/2013 10:53:28 Adult health examination [id number] see Risk Assessment and Lifestyle Change Counseling section above Counseling [id number] Migraine without aura [id number] Intermitte nt palpitations [id number] Jodi Mejia [facility] [place] [address] [place] [address] [place] [id number] 1 08/14/2013 15:41:35 08/14/2013 16:51:04 Migraine without aura [id number] MD CHRISTINA Whitney [facility], [address] [place] [id number] 1 09/11/2013 10:24:29 09/11/2013 11:18:18 Migraine without aura [id number] Ambika Caceres , [facility] [place] [address] [place] [address] 01/25/2015 13:48:32 01/25/2015 14:58:49 Active or passive immunization 895666488 Z23 Adult heal th examination 726542767 Z00.00 see Risk Assessment and Lifestyle Change Counseling section above Migraine without aura 56 015905 G43.009 Allergic rhinitis 611469 04 J30.9 [id number] Stacy Ley , [facility] [place] [address] [place] [address] 03/08/2015 15:08:04 03/08/2015 15:30:29 Migraine without aura 70681847 G43.598 [id number] Stacy Ley , [facility] [place] [address] [place] [address] 04/12/2015 14:27:14 04/12/2015 16:25:20 Migraine without aura 04867707 G43.009 Allergic rhinitis 873808 04 J30.9 Lingular tonsillitis 195 965206 J03.90 [id number] Shadi Schroeder , [facility] [place] [address] [place] [address] 06/25/2015 10:34:07 06/25/2015 13:24:36 Fatigue 89188332 R53.83 Menorrhagia 495368531 N9 2.0 [id number] Damir Pennington [facility], [address]ICE [address] [place] [address] 07/01/2015 14:54:07 07/02/2015 10:45:00 Headache 33816337 R51 Impairment of balance 38 0114353 R42 [id number] Shadi Schroeder , [facility] [place] [address] [place] [address] 07/12/2015 11:41:16 07/13/2015 11:06:41 Impairment of balance 766786082 R42 Migraine without aura 56 056576 G43.488 [id number] Carlos Reveles MD , [facility] [place] [address] [place] [address] 1 01/27/2016 15:22:20 01/27/2016 16:08:26 Adult health examination 678930602 Z00.00 see Risk Assessment and Lifestyle Change Counseling section above Counseling 086468205 Z71 .9 Screening mammography 24 032350 Z12.31 Migraine without aura 56 898022 G43.588 [id number] Carlos Reveles MD , [facility] [place] [address] [place] [address] 02/02/2017 14:04:44 02/02/2017 15:59:31 Adult health examination 176457261 Z00.00 see Risk Assessment and Lifestyle Change Counseling section above Counseling 676524328 Z71 .9 Active or passive immunization 220014623 Z23 Mixed hyperlipidemia 267 846562 E78.2 Migraine without aura 56 847964 G43.009 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 Suspect viral. Encourage supportive care with extra sleep/rest , ample hydration, humidifier /hot steam shower, semi-uprig ht sleeping position. Cough suppressan t as below. Return for worsening cough, fever > 101, or persisting Sx > 2 weeks. [id number] Sung Bryant MD , [facility], [address] [place] [address] 04/01/2017 10:57:35 04/05/2017 10:05:08 Acute upper respiratory infection 24146458 J06.9 Educated patient that URI is a viral illness of the upper airways. It is not bacterial and does not benefit from antibiotic s. Average duration of URI is 7-10 days but in a recent trial, treatment at 7-10 days of illness with antibiotic s, intranasal steroids, or placebo did not alter natural history at 3 weeks. Recommende d symptomati c treatments including NSAIDS, semi-uprig ht sleep position, antihistam sarah at HS, limited course of nasal sympathomi metics and/or cough syrups, and nasal saline rinses with soft squeeze bottle or Neti pot. Return for fevers > 101 for 3 days, worsening sinus pain, or failure to resolve in 2-4 weeks. Acute bronchitis 2316132 2 J20.9 low peak flows; low initial oxygen; lung exam normal; treat for bronchitis , close follow up; see Anushka Sunday; albuterol did not make a large clinical difference to her but did raise her oxygen. Did NOT prescribe albuterol will use prednisone instead and monitor closely [id number] Carlos Reveles MD , [facility] [place] [address] [place] [address] 04/03/2017 13:59:14 04/03/2017 14:41:34 Acute bronchitis 06052673 J20.9 [id number] Carlos Reveles MD , [facility] [place] [address] [place] [address] 04/06/2017 14:47:54 04/09/2017 09:12:41 Acute bronchitis 89646886 J20.9 [id number] Carlos Reveles MD , [facility] [place] [address] [place] [address] 1 08/28/2017 14:45:13 08/28/2017 15:19:06 Tinnitus of left ear 0880202581 106 H93.12 Pain in left knee 697855 0154 90002 M25.562 Sacroiliac joint pain 20 5980948 M53.3 [id number] Trista Hanks, PT, DPT, CSCS Physical Therapy, [facility] [address] [place] [address] 09/05/2017 14:18:07 09/10/2017 13:21:36 Lumbar radiculopathy 438960650 M54.16 Pt is a 47 y.o. female who reports to PT with ? low back into LLE that appears discogenic in nature, acutely painful. Contributi ng to that is poor posture, decreased mobility of lumbar segments and weakness of hip/knee/p elvic stabilizat ion muscles combined with prolonged driving and walking leading to poor load distributi on causing pain. Patient requires skilled physical therapy in order to safely and effectivel y progress their rehabilita tion to gain maximal functional outcome with as much symptom resolution as possible. Patient Goals: Resolve pain in order to return to normal function including sit, stand, walk Clinical Goals: Full and pain-free lumbar and LLE AROM; pt will be able to contract and isolate lumbar TrA; pt will demonstrat e understand ing and applicatio n of education on ergonomics and posture discussed Treatment Plan: Patient to return 1-2 times per week for 4-6 weeks. Treatment to Include: therapeuti c exercises/ activities , HEP prescripti on, modalities PRN, edema massage, manual therapy, ROM, patient education. [id number] Trista Hanks, PT, DPT, CSCS Physical Therapy, [address] [address] 09/07/2017 11:31:57 09/07/2017 13:38:10 Lumbar radiculopathy 620352183 M54.16 Pt tolerated gentle pressure directly to lumbar spine and lumbosacra l paraspinal s well and pain-free. Pt noted no peripherli zation of pain with LE or BLE distractio n although didn't immediatel y note centraliza tion either. By end of visit, pt noted feeling no changes in actual symptoms but felt more relaxed. Pt has been made aware of yellow/red signs and instructed to go to urgent care if they occur.Cont inue PT per POC [id number] Trista Hanks PT, DPT, CSCS Physical Therapy, [address] [address] 09/13/2017 15:21:29 09/14/2017 11:33:06 Lumbar radiculopathy 744595635 M54.16 Pt understood concepts discussed and explanatio ns made regarding overview of x-ray and feels confident with continuing PT POC on top of pursuing referral for physiatry. During mechanical traction, pt didn't note immediate relief, however, upon standing and walking around pt noted moderate relief both in low back and LLE pain as well as visibly looked less shifted.Co ntinue PT per POC [id number] Trista Hanks, PT, DPT, CSC[facility] Physical Therapy, [address] [address] 09/18/2017 12:46:39 09/18/2017 15:04:18 Lumbar radiculopathy 297155080 M54.16 Pt understood concepts discussed and explanatio ns made regarding overview of mechanical traction. Pt again tolerated mechanical traction well and pain-free. Afterwards , pt states soreness as she experience d last time, but does demonstrat e decreased lateral shift..Con tinue PT per POC, progress therex [id number] Trista Hanks, PT, DPT, [facility] Physical Therapy, [address] [address] 10/09/2017 09:33:35 10/09/2017 10:40:29 Lumbar radiculopathy 793983836 M54.16 Pt continues to note relief with lumbar traction and now combined with self lateral shift correction pt upright and pain-free at end of visit.Cont inue PT per POC, wean off of traction in favor of progressin g exercises as needed. [id number] Trista Hanks, PT, DPT, [facility] Physical Therapy, [address] [address] 10/16/2017 09:29:26 10/16/2017 10:27:01 Lumbar radiculopathy 419582409 M54.16 Pt tolerated progressio n of exercises very well. Pt did require cues to still engage lumbar TrA especially with added progressio ns and different positions, but once cued, pt able to maintain throughout rest of exercises. Pt noted relief with LLE distractio n similar to relief with mechanical traction. Pt only with a slight hint of a shift.Cont inue PT per POC, progress therex [id number] Trista Hanks, PT, DPT, [facility] Physical Therapy, [address] [address] 10/23/2017 14:22:02 10/23/2017 15:12:51 Lumbar radiculopathy 863729182 M54.16 Pt tolerated progressio ns to exercises well and pain-free. Pt required initial cueing regarding proper back/pelvi c neutral posturing as well as ways to counterbal ance shifting of CoM with carrying an extra load. Pt was able to demonstrat e proper sequencing of lifting 7# 'laundry basket. Pt admits frustratio n at increased time, however, notes no c/o pain when she would normally feel pain with same task. Pt encouraged to come up with other movement patterns that may be painful and find a way to turn it into an exercise.C ontinue PT per POC [id number] Trista Hanks, PT, DPT, [facility] Physical Therapy, [address] [address] 10/30/2017 15:47:45 10/30/2017 16:14:37 Lumbar radiculopathy 004955029 M54.16 Pt tolerated progressio ns to exercises well and painfree. Pt required only initial cueing on proper posture but then able to maintain and self-corre ct independen tly. 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 With this knowledge pt feels better prepared to manage symptoms independen tly.Pt to take a couple weeks off to re-assess for further needs. [id number] Carlos Reveles MD , [facility] [place] [address] [place] [address] 02/07/2018 15:15:07 02/07/2018 16:01:18 Mixed hyperlipidemia 094741777 E78.2 Adult heal th examination 280690668 Z00.00 see Risk Assessment and Lifestyle Change Counseling section above Counseling 205036734 Z71 .9 Depression screening 171 008394 Z13.89 depression screening tool administer ed, entered into emr, scored and discussed, time greater than 7.5 minutes Screening mammography 24 294369 Z12.31 Migraine without aura 56 006775 G43.636 [id number] Babar Jordan MD , [facility] [place] [address] [place] [address] 05/08/2018 15:27:28 05/08/2018 17:31:06 Chest pain 96196310 R07.9 New onset angina x4 days with T wave inversions in leads I & V4-6 on EKG. Hemodynami maurice stable. Reviewed with ES and RV.324mg aspirin (chewed) given to pt in office. Pt sent via EMS to [facility] to r/o ACS/SD. [id number] Babar Jordan MD , [facility] [place] [place] [address] 05/20/2018 10:40:55 05/20/2018 12:29:11 Anemia 978226617 D64.9 During hospitaliz ation, recheck levels. Most recent H/H 9.9/31.3 Acute non- ST segment elevation myocardial infarction 899589433 I21.4 S/p NSTEMI and 3 vessel CABG 05/10/[address] Holloway. On plavix/asa /metoprolo l/atorvast atin. [place] completed. 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 Continue daily weights. F/u with Dr. Holloway as scheduled 05/27/18. Cardiac rehab 05/31/[address] Holloway. She will see cardiologi st 06/13/18. Advised to see Dr. Reveles in the next month.Home VNA and telehealth . Coronary arteriosclerosis 07278006 I25.10 S/p NSTEMI and 3 vessel CABG 05/10/[address] Holloway. On plavix/asa /metoprolo l/atorvast atin. F/u with Dr. Holloway 05/27/18. Mixed hyperlipidemia 267 455094 E78.2 Now on high dose statin Postoperative pain 41417 9007 G89.18 Using tylenol RTC. Tramadol twice daily- has enough for the next week. Reviewed R/B/A. Gabapentin will be done in 2 days- not sure it is helping, she will taper off. Constipation 04159754 K5 9.00 Mild, secondary to tramadol. Continue docusate- can call for renewal if needed. Fatigue 41733396 R53.83 Repeat CBC. Likely multifacto rial from medical issues and typical recovery, as well as new meds. Discussed monitoring BP at home and signs/symp toms to monitor for- will have VNA services with telehealth . 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 8368729 I25.2 Coronary arteriosclerosis 70164878 I25.10 [id number] Carlos Reveles MD , [facility] [place] [place] [address] 08/22/2018 13:10:19 08/22/2018 13:59:43 Mixed hyperlipidemia 597726652 E78.2 Angina pectoris 00394032 0 I20.9 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 2903495 I25.2 Active or passive immunization 894691545 Z23 Coronary arteriosclerosis 57575433 I25.10 [id number] Carlos Reveles MD , [facility] [place] [place] [address] 11/14/2018 14:55:15 11/14/2018 15:42:41 Mixed hyperlipidemia 222322147 E78.2 Angina pectoris 65988210 0 I20.9 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 Continue to work on healthy diet and regular exercise. UTD on routine screenings . Counseling 656420205 Z71 .9 Depression screening 171 478504 Z13.89 . Mood has been good. depression screening tool administer ed, entered into emr, scored and discussed, time greater than 7.5 minutes Mixed hyperlipidemia 267 052866 E78.2 Cholestero l is at goal Continue to work on diet and exercise as discussed Angina pectoris 67845052 0 I20.9 No recent symptoms. 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 Holloway. On plavix/asa /metoprolo l/atorvast atin.Recen t f/u with Dr. Zack grewal Per the consult note- she was advised to stop the plavix, but she does not recall this. She will remain on and call them tomorrow to clarify and let us know. Eruption 431144505 R21 Irritation at incision scar from CABG 04/2018. Trial of mupirocin. Discussed signs/symp toms to monitor for. F/u if no improvemen t in 1-2 weeks. Coronary arteriosclerosis 66803061 I25.10 S/p NSTEMI and 3 vessel CABG 05/10/[address] Holloway. On plavix/asa /metoprolo l/atorvast atin. Migraine without aura 56 572897 G43.009 No migraines since SD 04/2018. [id number] Babar Jordan MD , [facility] [address] [place] [address] 09/22/2019 09:53:46 09/22/2019 13:07:27 Mixed hyperlipidemia 706193369 E78.2 Due for labs. Continue to work on diet and exercise as discussed. Coronary arteriosclerosis 68777472 I25.10 S/p NSTEMI and 3 vessel CABG 05/10/[address] Holloway. On asa/metopr olol/rosuv astatin and ezetimibe. Discussed increased risk with her medical hx and COVID 19. Angina pectoris 80717264 0 I20.9 No recent symptoms. 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 Holloway. On plavix/asa /metoprolo l/rosuvast atin and ezetimibe. Recent f/u with Dr. Zack grewal Due for labs. Migraine without aura 56 079674 G43.009 No migraines since SD 04/2018. Low back pain 464414688 M54.5 Will send back to PT to work on alignment/ core strength. [id number] Trista Raymond, PT, DPT, CSC Physical Therapy, [facility] [address] [place] [address] 09/29/2019 11:43:32 09/29/2019 13:34:42 Low back pain 526256182 M54.5 Pt is a 49 y.o. female with ? low back pain with positive lateral shift that appears consistent with discogenic cause. Patient requires skilled virtual physical therapy in order to safely and effectivel y progress their rehabilita tion to gain maximal functional outcome with as much symptom resolution as possible. Patient Goals: Independen tly resolve pain in order to return to normal function including prolonged positions, transition al movements Clinical Goals: Provide tools/stra tegies for pt to independen tly achieve: full and pain-free lumbar AROM/joint mobility; increase strength of core stabilizat ion muscles; pt will be able to contract and isolate lumbar TrA; understand ing regarding posture/lynn dy mechanics Treatment Plan: patient will virtually follow up as needed up to 1-2x/week for up to 12 weeks Treatment to Include education on: therapeuti c exercises/ activities , neuromuscu lar re-educati on, HEP prescripti on, modalities PRN, edema massage, manual therapy, ROM. [id number] Trista Raymond, PT, DPT, [facility] Physical Therapy, [address] [address] 10/06/2019 13:09:58 10/06/2019 13:56:41 Low back pain 711569390 M54.5 Pt demonstrat es a near full resolution of her lateral shift, demonstrat ing only 10% of a shift still visible. Pt with no c/o pain with progressio n of HEP and feels confident in her continued completion . Will follow up next week. [id number] Trista Raymond, PT, DPT, [facility] Physical Therapy, [address] [address] 10/17/2019 08:41:30 10/17/2019 09:28:03 Low back pain 641876101 M54.5 Pt with complete resolution of lateral shift with ease of transition al movements. 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 Pt with no c/o pain with progressio n of HEP. Pt will follow up in 2.5 weeks to reasses for further needs. [id number] Trista Raymond, PT, DPT, [facility] Physical Therapy, [address] [address] 11/04/2019 15:24:36 11/04/2019 16:18:09 Low back pain 770842860 M54.5 Pt with complete resolution of lateral shift demonstrat ing full and pain-free lumbar AROM. Pt with extensive HEP that combined with tools/stra tegies provided pt feels confident and independen t utilizing to manage symptoms. Pt will follow up with PT PRN. [id number] Babar Jordan MD , [facility] OFFICE [address] [place] [address] [place] [address] 04/28/2020 13:24:54 05/10/2020 18:56:42 Adult health examination 645121535 Z00.00 Continue to work on healthy diet and regular exercise. UTD on pap 08/2017. Due for mammogram. Will be due for baseline screening colonoscop y this yr. Will refer. Discussed COVID vaccine, which she will pursue. Counseling 998804526 Z71 .9 including cardiovasc ular risk reduction counseling Depression screening 171 471916 Z13.89 0. Mood has been stable. depression screening tool administer ed, entered into emr, scored and discussed, time greater than 7.5 minutes Screening for alcohol abuse 690202788 Z13.39 3 Screening mammography 24 845787 Z12.31 Screening for malignant neoplasm of colon 876752710 Z12.11 Referral for a DIRECT booked colonoscop y. This patient is a healthy ASA Class 1 or 2 patient (only mild systemic disease), or a STABLE, well controlled insulin dependent diabetic. They do not have serious cardiac disease ie SD/angiopl asty within 1 year, symptomati c CHF; renal failure with CKD 4 or 5; take Coumadin, Plavix, Aggrenox, etc. Coronary arteriosclerosis 13093427 I25.10 S/p NSTEMI and 3 vessel CABG 05/10/[address] Holloway. On asa/metopr olol/rosuv astatin and ezetimibe. Discussed increased risk with her medical hx and COVID 19. plans to get vaccine. Mixed hyperlipidemia 267 202196 E78.2 Continue to work on diet and exercise as discussed. Angina pectoris 21194862 0 I20.9 No recent symptoms. Exercising regularly. [id number] Cyndi Downing RN [facility], [facility] [address] [place] [address] 10/13/2020 12:18:18 10/14/2020 06:44:34 [id number] Michelle Quiñonez . , [facility] [address] [place] [address] 06/30/2021 15:49:16 07/01/2021 07:28:39 Coronary arteriosclerosis 52159036 I25.10 S/p NSTEMI and 3 vessel CABG 05/10/[address] HollowayFobora lowing cards once/year- apt exertional symptoms, no anginaBP at goalTaking meds as prescribed Continue asa, metoprolol , statin, zetia Mixed hyperlipidemia 267 581657 E78.2 Due for updated labsLDL at goal <70 last yearCheck LFTs as aboveConti nue statin, zetiaRegul ar exercise , balanced diet Insomnia 204217662 G47.0 0 No issues on amitriptyl ine Migraine without aura 56 674642 G43.009 Not currently endorsing [id number] Bruna Enriquez MD , [facility] [address] [place] [address] 09/09/2021 08:29:26 09/09/2021 09:35:04 Adult health examination 296554622 Z00.00 In good healthCont inues with regular exercise/b alanced dietDiscus sed ShingrexPa p deferred today due to menses, will obtain at MMMammo 01/2021 normal- r3wdQkav 09/2020 repeat 5 yearsBP at goal <130/80F/u 6 mo MM, sooner prn Counseling 321829130 Z71 .9 including cardiovasc ular risk reduction counseling Depression screening 171 827504 Z13.31 depression screening tool administer ed, entered into emr, scored and discussed, time greater than 7.5 minutes, , mood is stable Screening for alcohol abuse 582217723 Z13.39 05/07 no concern for abuse, discussed moderation Mixed hyperlipidemia 267 030052 E78.2 LDL goal <70 due to CAD, recent LDL 84LFTs WNLContinu e statin, zetiaIs exercising daily 2-5 mi on treadmill, added yoga this summer, discussed alternativ e modalities and diet mods as increase in lipids this year and has not seen weight loss Screening for malignant neoplasm of cervix 574977569 Z12.4 Deferred today due to menses, obtain next visit Dysfunctio n of eustachian tube 38489138 H69.93 Will try flonase, ET dysfunctio n bilateral on exam, Dr. Lackey also evaluated Tinnitus 56154120 H93.12 Using white noise, ENT 2018, consider updated referral to ENT if becomes more bothersome Migraine without aura 56 568380 G43.009 Not currently endorsing Coronary arteriosclerosis 71465292 I25.10 S/p NSTEMI and 3 vessel CABG 05/10/[address] 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 , [facility] [place] [place] [address] 03/10/2022 15:29:07 03/10/2022 16:38:14 Screening for malignant neoplasm of cervix 170933368 Z12.4 Pap today Mixed hyperlipidemia 267 129430 E78.2 LDL goal <70 due to CAD, recent LDL 84LFTs WNLContinu e statin, zetiaUpdat e labs prior to next visitC/t lifestyle mods Coronary arteriosclerosis 17914027 I25.10 S/p NSTEMI and 3 vessel CABG 05/10/[address] Kellie benavidez cards once/yearN o exertional symptoms, no anginaBP at goalTaking meds as prescribed Continue asa, metoprolol , statin, zetia Angina pectoris 05510785 0 I20.9 No current symptoms [id number] Briana Jacobsen D.O. , [facility] [place] [place] [address] 06/28/2022 15:48:12 06/28/2022 16:26:01 Cyst of skin 300043747 L72.9 R upper back x monthsNo tenderness , is not infectedNo n purulent thick discharge expressed w/ light pressure todayRefer to gen surg for ? removal as discussedM onitor for s/s infection ongoing [id number] Michelle Quiñonez . MD [facility], [facility], [address] [place] [address] 09/18/2022 08:58:11 09/19/2022 17:04:37 Adult health examination 691065573 Z00.00 Mammo 01/2021 q2yr, orderedPap UTD 02/2022 recall 5 yearsColo UTD 09/2020 repeat 5 years BP at goalLabs UTDRec stay UTD covid boosters, flu shots annually 6 mo MM, sooner prn Depression screening 171 202794 Z13.31 depression screening tool administer ed, Screening for alcohol abuse 380567668 Z13.39 Alcohol use screening tool administer ed, 03/09 Mixed hyperlipidemia 267 270630 E78.2 LDL goal <70 due to CAD, recent LDL 77Continue statin, zetiaEncou raged to discuss w/ cardiologi st at upcoming visitC/t lifestyle mods Coronary arteriosclerosis 70946165 I25.10 S/p NSTEMI and 3 vessel CABG 05/10/[address] Kellie benavidez cards once/yearN o exertional symptoms, no anginaBP at goalTaking meds as prescribed Continue asa, metoprolol , statin, zetia Migraine without aura 56 [id number] G43.009 Not currently endorsingA mitriptyli ne daily Benign jessica plasm of choroid 27210229 D31.32 Follows with eye doc Screening mammography 24 513733 Z12.31 Angina pectoris [id number] 0 I20.9 No current symptoms [id number] AIME Manrique-ANDREA , [facility], [address] [place] [address] 01/21/2023 08:58:48 01/21/2023 09:26:25 Localized eruption of skin [id number] R21 Patients presents for evaluation of rash consistent with: collin Treated with: ketoconazo le and nystatin powder Follow up if rash is not improving or with other concerns. [id number] Lulú Mccarthy MD , [facility] [place] [address] [place] [address] 03/21/2023 15:22:49 03/22/2023 09:38:55 Coronary arteriosclerosis [id number] I25.10 Almost 5yrs s/p NSTEMI, CABG x 3. LDL not quite at goal despite max dose rosuvastat in + ezetimibe. Encouraged to eat more plant-base d diet, continue exercise. Screening mammography 219012 Z12.31 Scheduled for 05/15/23 Angina pectoris [id number] 0 I20.9 See above. No recurrence on regimen of ASA, BB, statin, ezetimibe. Mixed hyperlipidemia 267 612343 E78.2 LDL not quite at goal < 70 despite max dose rosuvastat in + ezetimibe. Encouraged plant based diet and f/u lipids q6mo. Tinnitus of left ear 000 7510824 106 H93.12 [id number] FERNANDO ELI , [facility] [place] [address] [place] [address] 06/21/2023 15:56:53 06/21/2023 16:49:15 Achilles tendinitis 34723948 M76.60 2 years of worsening pain along bilateral achilles tendons, worse with walking, not responsive to rest, ice/heat, elevation, Tylenol, heel insertsS/p SD and CABG on aspirin -- avoiding NSAIDsWill refer to sports medicine, PT for resistance trainingAv oid excessive loading like jumping, sprinting [id number] Bri Ortiz MD Sports Medicine, [facility] [address] [place] [address] 07/30/2023 13:35:22 07/30/2023 14:52:28 Achilles tenosynovitis 567230204 M65.869 Enedelia is a 53-year-ol d female with bilateral ankle pain due to mid substance Achilles tendinosis . I discuss this diagnosis with her today as well as discussing options for treatment. We discussed physical therapy, the use of heel lifts, nitroglyce rin patches, and potential surgery. Her son is studying sports medicine and from her descriptio n is graduating as an national sales trainer. She would like to have him instruct her in physical therapy. We discussed the pros and cons of having a family member assist with physical therapy and I did offer her a referral to formal therapy which she declined. I printed out a copy of physical therapy instructio ns to provide for her son. Enedelia will try wearing heel lifts to see if this offloads her Achilles tendon. She will plan to follow up with me in 12 weeks for reevaluati on if her symptoms are not improving. [id number] HANH GAITAN, [facility] [place] [address] [place] [address] 06/10/2024 15:17:40 06/11/2024 13:34:23 Adult health examination [id number] Z00.00 Glenna patient, she is a triplet Mom!!Her kids are grown and out of the house. 5 year recall for colonoscop y .5 year recall on PAP (done 2022) due 2027. Mammo due September 2024 see below. HCP on file. never smoker Depression screening 171 431534 Z13.31 depression screening tool administer ed negative Screening for alcohol abuse 348739098 Z13.39 Alcohol use screening tool administer ed; almost never drinks ETOH, only rare special occasion. Immunization due 2707464 08 Z23 pneumonia History of coronary artery bypass grafting 351260473 Z95.1 Reports some SOB, not sure if related to CAD;Follow s with Dr. Zack demarco; cardiologi st; has scheduled stress test next week. Cont ASA, BB, and statin. Benign jessica plasm of soft tissue 62237355 D22.9 Sent photo to Jaleesa KING to ask for curbside advice, on if she needs biopsy. Screening mammography 624900 Z12.31 due September, will do every 1.5 years. Mixed hyperlipidemia 267 848126 E78.2 c/w rosuvastat in and zetia; LDL at goal; recheck q 6 months. Obese class II [id number] 1 95373 E66.812 Want to ensure all risk factors for CV disease are well controlled .BP is at goal today.LDL is at goal. Health Concerns Section Related Observation LastModified by Organization Detai ls LastModified Time None Recorded Concern Status LastModified by Organization Details LastModified Time None Recorded Advance Directives Directive N: 10/26/2009 given form to sarthak osorio Payers Encounter Date Sequence Insurance Name Policy Number Policy Lowe Covered Member ID Lowe Member ID Guarantor Name 01/21/2023 1 [facility] [place] [id number] Javed Allen [id number] Enedelia Allen 03/21/2023 1 [facility] [place] [id number] Javed Allen [id number] Enedelia Allen 06/21/2023 1 [facility] [place] Enedelia Allen [id number] Enedelia Allen 07/30/2023 1 [facility] [place] Enedelia Allen [id number] Enedelia Allen 06/10/2024 1 [facility] [place] Enedelia Allen [id number] Enedelia Allen Notes Date Note Type Note Provider Name and Address Organization Details Recorded Time 3 text/html Rash under both breasts and on sternum, ongoing for several weeks red and itchy around breastsitchyno new medsno one with similair rash at home applied cortisone cream with no benefitand no laundry detergent changes Martita William, [facility], [address], [facility] 01/21/2023 09:27:54 4 text/html [facility] Coronary Artery Disease F/UReported bypatient.Duration:chronic ; diagnosed 2018 Control:No episodes of chest pain or pressure; No chest discomfort with daily activities; No chest pain with household activities or yard work; Has not needed to use nitroglycerin; LDL usually runs 70-100, goal is less than <70 Compliance:Compliant with medications; Compliant with follow-up visits; Compliant with diet; Gets regular exercise; Currently taking aspirin; Taking a beta amor; Taking a statin Self Care:Understands the appropriate use of Nitroglycerin for chest pain; Understands the importance of a regular exercise program; Understands the importance of a diet low in fat and simple sugars Context:Taking aspirin daily; Not missing doses of medications; No side effects from medications; Not using tobacco; Has had heart attack in the past; Has had angina in the past; Had cardiac catherization; Prior CABG Associated Symptoms:No neck pain; No left arm pain; No dyspnea with exertion; No sweating; No nausea; No stressVMG HyperlipidemiaReported bypatient.Duration:chronic Control:LDL has been <80, goal is <70; treated with diet; treated with medications; Patient understands medications are to lower cholesterol Compliance:compliant with medications; compliant with follow-up visits; compliant with diet Barriers to CareNo identified barriers to care Context:Nonsmoker; No peripheral vascular disease ([id number]); No diabetes; No carotid artery stenosis Associated Symptoms:normal liver function test; no muscle pain; no fatigue; no chest discomfort; no dyspnea; no change in exercise capacity Ability to Manage Self CareOn how confident the patient feels in ability to self manage condition the patient selects 8 with 10 being very confident and 1 being very low confidence; Patient feels moderately confident in ability to self manage conditionNotes: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 Sleep depends on work stress. Gets max 6hr/night during school yr, and 8-9hr/night during summer.Denies home stressors. Went 6mo without menses. LMP 03/10 and still spotting.Not currently having hot flashes. 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 She states she has had pain in both Achilles tendons for approximately 2 years that has been slowly getting worse. She has developed gradual swelling of the Achilles tendons. She has pain with any walking, particularly longer distances. She has tried ice as well as mfaa-zcy-ktygsng orthotics but has not had any change in her symptoms. She denies any injuries. She has never had any previous ankle or foot surgery or injections. Bri Ortiz MD [address] [place] [address], [phone], [facility] 07/30/2023 14:50:32 5 text/html 54F Wellness. Worries about spot on left cheek / face; not a sun worshiper; minimal sunburns, wears SPF 50 plus. 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 to ; home life is good.Four grown kids. Not feeling empty nest sadness. LLOYD PEREZ PA-C [address] [place], [phone], [facility] 06/10/2024 18:06:19 OBGyn Episode No OBEpisode recorded.
== END ==
LOC: HO.CARD 07:53
PROVIDERS: Visit Provider Internal Medicine
DX: R07.2 Precordial pain (principal); Z95.1 Presence of aortocoronary bypass graft
CPT/HCPCS: 78452; 93017; A9500

== ENCOUNTER → 2024-06-19 07:59 | Outpatient (BNV) | payer OTHER, SELFPAY | DX: R06.02 Shortness of breath (principal); I49.1 Atrial premature depolarization | CPT/HCPCS: 78452; 93016; 93018 ==

== ENCOUNTER 2024-06-27 07:49 | Outpatient (AMB) | payer OTHER, SELFPAY ==
--- OUTSIDE RECORDS SUMMARY | 2024-06-27 07:54 | XMS_ITS | Data Portability ---
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 Plan of Treatment Reminders Order Date Submit Date Provider Last Modified By Organization Details Last Modified Time Details Appointments Mammog nicolás, Screen ing 2024 02:30P M [facility] [place] Copyist Not available Not available Not available LAB Follow -Up 2024 06:40A M [facility] [place] Not available Not available Not available Medica l Manage ment 30 2024 04:30P M LLOYD PEREZ PA-C Not available Not available Not available LAB Follow -Up 2025 06:40A [facility] Not available Not available Not available Wellne ss Visit 30 2025 09:30A M LLOYD PEREZ PA-C Not available Not available Not available Lab lipid panel, serum [address] [facility], [address] [place] [address], [address], 06/10/2024 17:57:39 CMP, serum or plasma [address] [facility], [address] [place] [address], [id number], 06/10/2024 17:57:39 lipid panel, serum [address] [facility], [address] [place] [address], [id number], 06/10/2024 17:57:39 CMP, serum or plasma [address] [facility], [address] [place] [address], [address], 06/10/2024 17:57:39 TSH, serum or plasma [address] [facility], [address] [place] [address], [address], 06/10/2024 18:00:54 HbA1c (hemog lobin A1c), blood [address] [facility], [address] [place] [address], [address], 06/10/2024 18:00:54 Referral physic al therap ist referr al - Sylvia ral mid-sanchez bstanc e achill es tendin osisHi p and core streng thenin gImpro ve glute activa tionEc centri c rehab manager ior chain streng thenin g (Shaquille dson protoc ol)Pos terior chain stretc hingMa nual therap y and modali ties PRNHEP 2023 024 [email or web address] [facility] [place], [address] [place] [address], [place], [address], 08/01/2023 08:45:47 sports medici ne referr al 2023 024 [email or web address] Bri Ortiz MD, [address] [place] [address], [address], 06/27/2023 09:34:09 physic al therap ist referr al [email or web address] [facility] ([facility]), [address], [place], [address], 06/25/2023 10:41:54 otolar yngolo gist referr al 2023 024 [email or web address] [facility], [address], [address], [place], [address], 03/23/2023 08:55:01 Procedures None record ed. Surgeries None record ed. Imaging MAMMO, screen ing, tomosy nthesi s, bilate ral - DUE SEPTEMBER 20242024 025 [facility] (Im[facility]), [address], [place], [address], 06/11/2024 09:05:41 Medication Orders ketoco nazole 2 % topica l cream 2022 023 [email or web address] 0 [facility], [address] [place], [address], 06/10/2024 16:06:33 nystat in 100,00 0 unit/g nicolás topica l powder 2022 023 [email or web address] 0 [facility], [address] [place], [address], 06/10/2024 16:06:41 Patient TargetsNo targets recorded. 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 ? ?L 3.98-1 0.04 Not Available [address], [address], 06/05/2024 10:30:06 06/06/1906/05/2024 CBC RBC 5.31 M/? ? ?L 3.93-5 .22 high Not Available [address], [address], 06/05/2024 10:30:06 06/06/1906/05/2024 CBC HGB 15.6 g/dL 11.2-1 5.7 Not Available [address], [address], 06/05/2024 10:30:06 06/06/1906/05/2024 CBC HCT 47.5 % 34.1-4 4.9 high Not Available [address], [address], 06/05/2024 10:30:06 06/06/1906/05/2024 CBC MCV 89.5 fL 79.4-9 4.8 Not Available [address], [address], 06/05/2024 10:30:06 06/06/1906/05/2024 CBC MCH 29.4 pg 25.6-3 2.2 Not Available [address], [address], 06/05/2024 10:30:06 06/06/1906/05/2024 CBC MCHC 32.8 g/dL 32.2-3 5.5 Not Available [address], [address], 06/05/2024 10:30:06 06/06/1906/05/2024 CBC plt 421 K/? ? ?L 182-36 9 high Not Available [address], [address], 06/05/2024 10:30:06 06/06/1906/05/2024 CBC MPV 10.6 fL 9.4-12 .3 Not Available [address], [address], 06/05/2024 10:30:06 06/06/1906/05/2024 CBC neut% 58.7 % 34.0-7 1.1 Not Available [address], [address], 06/05/2024 10:30:06 06/06/1906/05/2024 CBC neut# 4.24 1.56-6 .13 Not Available [address], [address], 06/05/2024 10:30:06 06/06/1906/05/2024 CBC lymph % 28.9 % 19.3-5 1.7 Not Available [address], [address], 06/05/2024 10:30:06 06/06/1906/05/2024 CBC lymph # 2.09 K/? ? ?L 1.18-3 .74 Not Available [address], [address], 06/05/2024 10:30:06 06/06/19 25 06/05/2024 CBC mono% 8.2 % 4.7-12 .5 Not Available [address], [address], 06/05/2024 10:30:06 06/06/19 25 06/05/2024 CBC mono# 0.59 0.24-0 .56 high Not Available [address], [address], 06/05/2024 10:30:06 06/06/19 25 06/05/2024 CBC eo% 3.3 % 0.7-5. 8 Not Available [address], [address], 06/05/2024 10:30:06 06/06/19 25 06/05/2024 CBC eo# 0.24 0.04-0 .36 Not Available [address], [address], 06/05/2024 10:30:06 06/06/19 25 06/05/2024 CBC baso% 0.8 % 0.1-1. 2 Not Available [address], [address], 06/05/2024 10:30:06 06/06/19 25 06/05/2024 CBC baso# 0.06 0.00-0 .08 Not Available [address], [address], 06/05/2024 10:30:06 06/06/19 25 06/05/2024 CBC RDW-CV 12.8 % 11.7-1 4.4 Not Available [address], [address], 06/05/2024 10:30:06 06/06/19 25 06/05/2024 CBC Ig% 0.100 % 0.000- 1.500 Ig % >0.5 Indic ates possi ble Left Shift Not Available [address], [address], 06/05/2024 10:30:06 06/06/19 25 06/05/2024 CBC Ig# 0.010 0.000- 0.093 Not Available [address], [address], 06/05/2024 10:30:06 06/06/19 25 06/05/2024 CBC NRBC% 0.0 % 0.0-0. 2 Not Available [address], [address], 06/05/2024 10:30:06 06/06/19 25 06/05/2024 CBC NRBC# 0.000 0.000- 0.012 Not Available [address], [address], 06/05/2024 10:30:06 06/06/19 25 06/05/2024 COMP. METAB OLIC PANEL glucose 96 mg/dL 70-100 Not Available [address], [address], 06/05/2024 15:36:26 06/06/19 25 06/05/2024 COMP. METAB OLIC PANEL BUN 12 mg/dL 7-18 Not Available [address], [address], 06/05/2024 15:36:26 06/06/19 25 06/05/2024 COMP. METAB OLIC PANEL creatinine 0.8 mg/dL 0.8-1. 3 Not Available [address], [address], 06/05/2024 15:36:26 06/06/19 25 06/05/2024 COMP. METAB OLIC PANEL B/C 15.0 ratio Not Available [address], [address], 06/05/2024 15:36:26 06/06/19 25 06/05/2024 COMP. METAB [...] be used in pregn caryl. Not Available [address], [address], 06/05/2024 15:36:26 06/06/19 25 06/05/2024 COMP. METAB OLIC PANEL sodium 141 mmol/ L 136-14 5 Not Available [address], [address], 06/05/2024 15:36:26 06/06/19 25 06/05/2024 COMP. METAB OLIC PANEL potassium 5.4 mmol/ L 3.5-5. 1 high Not Available [address], [address], 06/05/2024 15:36:26 06/06/19 25 06/05/2024 COMP. METAB OLIC PANEL chloride 104 mmol/ L 96-107 Not Available [address], [address], 06/05/2024 15:36:26 06/06/19 25 06/05/2024 COMP. METAB OLIC PANEL anion gap 9.9 5.0-15 .0 Not Available [address], [address], 06/05/2024 15:36:26 06/06/19 25 06/05/2024 COMP. METAB OLIC PANEL CO2 27 mmol/ L 21-32 Not Available [address], [address], 06/05/2024 15:36:26 06/06/19 25 06/05/2024 COMP. METAB OLIC PANEL calcium 9.7 mg/dL 8.5-10 .3 Not Available [address], [address], 06/05/2024 15:36:26 06/06/19 25 06/05/2024 COMP. METAB OLIC PANEL total protein 7.9 g/dL 6.4-8. 2 Not Available [address], [address], 06/05/2024 15:36:26 06/06/19 25 06/05/2024 COMP. METAB OLIC PANEL albumin 4.4 g/dL 3.4-5. 0 Not Available [address], [address], 06/05/2024 15:36:26 06/06/19 25 06/05/2024 COMP. METAB OLIC PANEL globulin 3.5 g/dL Not Available [address], [address], 06/05/2024 15:36:26 06/06/19 25 06/05/2024 COMP. METAB OLIC PANEL A/G 1.3 ratio 0.8-2. 0 Not Available [address], [address], 06/05/2024 15:36:26 06/06/19 25 06/05/2024 COMP. METAB OLIC PANEL total bilirubin 0.60 mg/dL 0.00-1 .00 Not Available [address], [address], 06/05/2024 15:36:26 06/06/19 25 06/05/2024 COMP. METAB OLIC PANEL AST 32 U/L 0-37 Not Available [address], [address], 06/05/2024 15:36:26 06/06/1906/05/2024 COMP. METAB OLIC PANEL ALT 56 U/L 6-63 Not Available [address], [address], 06/05/2024 15:36:26 06/06/19 25 06/05/2024 COMP. METAB OLIC PANEL alk. phos. 98 U/L 50-136 Not Available [address], [address], 06/05/2024 15:36:26 06/06/19 25 06/05/2024 LIPID PANEL cholesterol 113 mg/dL <200 mg/dl Valeria able 200-2 39 mg/dl Borde rline High >240 mg/dl High Not Available [address], [address], 06/05/2024 15:36:28 06/06/19 25 06/05/2024 LIPID PANEL triglyceride s 57 mg/dL <150 mg/dL Milagros l 150-1 99 mg/dL Borde rline High 200-4 99 mg/dL High >500 mg/dL Very High Not Available [address], [address], 06/05/2024 15:36:28 06/06/1906/05/2024 LIPID PANEL direct HDL 39 mg/dL <40 mg/dl - Major Risk for CHD >60 mg/dl - Negat dangelo Risk for CHD Not Available [address], [address], 06/05/2024 15:36:28 06/06/19 25 06/05/2024 LDL - [...] r is not matthew lorenzo. Not Available [facility] [address], [place], [address], 06/05/2024 15:36:29 04/16/19 24 04/16/2023 MAMMO , [...] Angelica bartlett Physic ace: Pancho Paniagua ms [email or web address] [facility]) [address] [place], [address], 04/30/2023 09:21:41 Result Notes None recorded. 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 [facility] . LLOYD PEREZ PA-C [address] [place] [address] [place], [address], [facility] 5 16:55:46 Coronary arterios clerosis 67074849 Active 2018 CABG, 3 VESSEL Lulú Mccarthy MD [address] [place] [address] [place], [address], [facility] 4 15:03:16 Obese class II 27286130245 4105 Active 2024 LLOYD PEREZ PA-C [address] [place] [address] [place], [address], [facility] 5 17:58:48 Internal hemorrho ids 21723302 Completed 200601/15/2013 Carlos Reveles MD [address] [place] [address] [place], [address], [facility] 6 12:07:07 Contusio n 714647803 Completed 200307/06/2011 [place], [address], [facility] 6 12:07:07 Cough 33230559 Completed 07/06/2011 MD [place], [address], [facility] 6 12:07:07 Migraine without aura 83718710 [place], [address], [facility] 6 12:23:49 Benign neoplasm of choroid 60468963 Completed 200802/02/2017 [place], [address], [facility] 7 14:44:24 Acute cystitis 38702411 Completed 200207/06/2011 [place], [address], [facility] 6 12:07:07 Neck pain 31018659 Completed 200301/15/2013 [place], [address], [facility] 6 12:07:07 Acute pharyngi tis 610793376 Completed 07/06/2011 [place], [address], [facility] 6 12:07:07 Influenz a 5125402 Completed 07/06/2011 [place], [address], [facility] 6 12:07:07 Dizzines s 284935456 Completed 200307/06/2011 [place], [address], [facility] 6 12:07:07 Breast lump 36583378 Completed 200407/06/2011 [place], [address], [facility] 6 12:07:07 Acute upper respirat ory infectio n 03383007 Completed 07/06/2011 [place], [address], [facility] 6 12:07:07 Common cold 96766229 Completed 200207/06/2011 [place], [address], [facility] 6 12:07:07 On examinat ion - a rash Completed 200107/06/2011 [place], [address], [facility] 6 12:07:07 Brachial neuritis 32929112 Completed 200507/06/2011 [place], [address], [facility] 6 12:07:07 Bipolar I disorder 363358234 Completed 200407/03/2013 [place], [address], [facility] 6 12:07:07 Acute maxillar y sinusiti s 44835767 Completed 200507/06/2011 [place], [address], [facility] 6 12:07:07 Low back pain 831880379 Completed 200107/06/2011 Carlos Reveles MD [address] [place], [address], [facility] 6 12:07:07 Backache 769397696 Completed 200307/06/2011 [place], [address], [facility] 6 12:07:07 Acute bronchit is 10834603 Completed 200307/06/2011 Carlos Reveles MD [address] [place], [address], [facility] 6 12:07:07 Primary fibromya lgia syndrome 69231275 Completed 200107/06/2011 Carlos Reveles MD [address] [place], [place] [address], [address], [facility] 6 12:07:07 Streptoc occal sore throat 53261975 Completed 200507/06/2011 Carlos Reveles MD [address] [place] [address] [place], [address], [facility] 6 12:07:07 Viral upper respirat ory tract infectio n 339678174 Completed 200507/06/2011 Carlos Reveles MD [address] [place] [address] [place], [address], [facility] 6 12:07:07 Pain of breast 33783427 Completed 200407/06/2011 Carlos Reveles MD [address] [place] [address] [place], [address], [facility] 6 12:07:07 Malaise and fatigue 947452395 Completed 200507/06/2011 Carlos Reveles MD [address] [place] [address] [place], [address], [facility] 6 12:07:07 Problem Notes None recorded. Procedures Surgical History Date Name Laterality Status Provider Name and Address Organization Details Recorded Time 09/10/19 22 Alcohol use screening completed NITO BLANCO PA-C [address] [place] [address], [address], [facility] 09/09/2021 09:39:56 09/10/19 22 Depression Screening completed NITO BLANCO PA-C [address] [place], [place] [address], [address], [facility] 09/09/2021 09:40:02 10/14/19 21 Tassoni - Colonoscopy completed Zachariah Ogden MD [address] [place] [address], [address], [facility] 10/13/2020 13:18:48 04/29/19 21 prevention-cardio vascular risk reduction counseling completed Rita Hook CMA [facility] 04/28/2020 12:00:30 04/29/19 21 prevention-annual alcohol misuse screening completed Rita Hook [facility] 04/28/2020 12:00:30 11/04/19 20 [address]2657: Therapeutic Exercise completed Trista Raymond PT, DPT, [address], [address], [facility] 11/04/2019 15:57:02 10/17/19 20 58082: Therapeutic Exercise completed Trista Raymond PT, DPT, CSC [address] [place] [address], [address], [facility] 10/17/2019 09:16:11 10/06/19 20 [address]95: Therapeutic Exercise completed Trista Raymond PT, DPT, [address], [address], [facility] 10/06/2019 13:46:53 09/29/19 20 Physical Activity Counselling completed Trista Raymond PT, DPT, [address], [address], [facility] 09/29/2019 12:19:19 09/29/19 20 18618: PT Eval, Moderate Complexity completed Trista Raymond PT, DPT, [address], [address], [facility] 09/29/2019 11:48:35 05/21/19 19 Post hospital/SNF follow-up/Transit ional Care completed Orlando Unger [facility] 05/20/2018 10:48:09 05/11/19 19 CABG completed Lulú Mccarthy MD [address] [place] [address], [address], [facility] 03/21/2023 15:05:46 10/31/19 18 03801: Therapeutic Exercise completed Trista Hanks PT, DPT, [address], [address], [facility] 10/30/2017 16:12:53 10/31/19 18 Neuromuscular re-education completed Trista Hanks PT, DPT, [address], [address], [facility] 10/30/2017 15:51:45 10/24/19 18 07467: Manual Therapy completed Trista Hanks, PT, DPT, [address], [address], [facility] 10/23/2017 14:24:30 10/24/19 18 Neuromuscular re-education completed Trista Hanks, PT, DPT, CSCS [address] [place] [address], [address], [facility] 10/23/2017 14:24:30 10/17/19 18 90828: Manual Therapy completed Trista Hanks PT, DPT, CSCS [address] [place] [address], [address], [facility] 10/16/2017 10:15:25 10/17/19 18 Neuromuscular re-education completed Trista Hanks PT, DPT, CSCS [address] [place] [address], [address], [facility] 10/16/2017 10:15:27 10/10/19 18 54212: Mechanical Traction completed Trista Hanks PT, DPT, CSCS [address] [place] [address], [address], [facility] 10/09/2017 09:47:00 10/10/19 18 42297: Therapeutic Activities - Direct 1:1 completed Trista Hanks, PT, DPT, CSCS [address] [place] [address], [address], [facility] 10/09/2017 10:20:41 09/19/19 18 91084: Mechanical Traction completed Trista Hanks, PT, DPT, CSCS [address] [place] [address], [address], [facility] 09/18/2017 12:55:31 09/19/19 18 57082: Therapeutic Activities - Direct 1:1 completed Trista Hanks, PT, DPT, CSCS [address] [place] [address], [address], [facility] 09/18/2017 12:57:19 09/14/19 18 99754: Mechanical Traction completed Trista Hanks, PT, DPT, CSCS [address] [place] [address], [address], [facility] 09/13/2017 15:51:53 09/14/19 18 66881: Therapeutic Activities - Direct 1:1 completed Trista Hanks, PT, DPT, CSCS [address] [place] [address], [address], [facility] 09/13/2017 16:10:47 09/08/19 18 31173: Manual Therapy completed Trista Hanks, PT, DPT, CSCS [address] [place] [address], [address], [facility] 09/07/2017 12:17:42 09/08/19 18 26896: E-Stim - Unattended completed Trista Hanks, PT, DPT, CSCS [address] [place] [address], [address], [facility] 09/07/2017 12:17:05 09/06/19 18 Physical Activity Counselling completed Trista Hanks, PT, DPT, CSCS [address] [place] [address], [address], [facility] 09/05/2017 15:31:29 09/06/19 18 43908: PT Eval, Moderate Complexity completed Trista Hanks, PT, DPT, CSCS [address] [place] [address], [address], [facility] 09/05/2017 15:32:11 04/01/19 18 Nebulizer Tx completed Genet Love LPN [facility] 04/01/2017 12:05:48 04/15/19 13 Shave Biopsy completed Vikash Pendleton PA-C [address] [place] [address], [address], [facility] 04/15/2012 08:18:19 02/23/20 09 Nebulizer Tx completed Enedelia Umanzor CMA [facility] 02/22/2009 09:13:02 02/26/19 01 Tubal Ligation completed Lulú Mccarthy MD [address] [place] [address], [address], [facility] 03/21/2023 15:04:48 Imaging Results Imaging Date Name Status LastModified by Organiz ation Details LastModified Time 04/16/2023 MAMMO, screening, tomosynthesis, bilateral completed [email or web address] [facility]) [address], [place], [address], 04/30/2023 09:21:41 Procedure Notes None recorded. Medical [...] by oral route. 06/18 completed Started at [facility] Not Available Not Available Not Available [...] Atrovent 42 mcg (0.06 %) nasal spray [place] 2 sprays in each nostril by intranas [...] by oral route. 2018 active Started at [facility] Not Available Not Available Not Available [...] by oral route. 08/22 completed Started at [facility] Not Available Not Available Not Available betametha joelle, augmented 0.05 % topical ointment active Not Available Not Available Not Available aspirin 81 mg chewable tablet Chew for 4 tablets once in office 05/17 completed Not Available Not Available Not Available Tylenol 325 mg tablet Take 3 tablets every 6 hours by oral route. 08/22 completed Started at [facility] Not Available Not Available Not Available [...] by oral route. 06/18 completed Started at [facility] Not Available Not Available Not Available [...] by oral route. 06/18 completed Started at [facility] Not Available Not Available Not Available Fluvirin (PF) 45 mcg (15 mcg x 3)/0.5 mL intramusc ular syringe VACCINAT ION ADMINIST ERED BY [facility] 02/02 completed Not Available Not Available [...] IM syringe VACCINAT ION ADMINIST ERED BY [facility]im[facility] ST 11/04 completed Not Available Not Available [...] 110 mm[Hg] 68 mm[Hg] Andria Garcia MA [facility] 3 09:11:45 Date Recorded Body height Body mass index (BMI) Body weight Heart rate Systolic blood pressure Diastolic blood pressure Provider Name and Address Organization Details Last Updated DateTime 4 164.47 cm 34.5 kg/m2 93786.0 3 g 78 /min 112 mm[Hg] 72 mm[Hg] Enedelia Bell MA [facility] 4 16:21:33 Date Recorded Body height Body mass index (BMI) Body weight Heart rate Oxygen saturation Oxygen saturation in Arterial blood by Pulse oximetry Systolic blood pressure Diastolic blood pressure Provider Name and Address Organization Details Last Updated DateTime 4 164.47 cm 34 kg/m2 09849.2 5 g 86 /min 99 % 99 % 128 mm[Hg] 80 mm[Hg] BEATRICE Gee [facility] 4 16:05:34 Date Recorded Body height Systolic blood pressure Diastolic blood pressure Provider Name and Address Organization Details Last Updated DateTime 07/30/2023 164.47 cm 122 mm[Hg] 70 mm[Hg] Ewelina Miller [facility] 07/30/2023 14:11:12 Date Recorded Body height Body mass index (BMI) Body weight Heart rate Oxygen saturation Oxygen saturation in Arterial blood by Pulse oximetry Systolic blood pressure Diastolic blood pressure Provider Name and Address Organization Details Last Updated DateTime 164.47 cm 35.7 kg/m2 35334.1 7 g 80 /min 97 % 97 % 116 mm[Hg] 70 mm[Hg] Yessi Conde CMA [facility] 5 16:11:31 Social History Question Answer Notes LastModified by Organizat ion Details LastModified Time Tobacco Smoking Status Never Smoker 06/30/21 AL09/18/22MV/ MV 5fc Yessi Conde CMA [facility] 06/10/2024 16:09:43 Do You Have An Advance Directive? No 10/26/2009 Given Form To Complete [email or web address] Information not available 10/26/2009 What Is Your Level Of Alcohol Consumption? Occasional 03/19/19 JI Very Occasional Information not available 04/28/2020 Are You Currently Employed? Yes 06/10/24fc [email or web address] Information not available 06/10/2024 What Type Of Diet Are You Following? REGULAR 06/10/24fc [email or web address] Information not available 06/10/2024 Which Illicit Or Recreational Drugs Have You Used? None Information not available 04/28/2020 Do You Or Have You Ever Used E-cigarettes Or Vape? 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 [employer]. 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 0 [email or web address] Information not available 06/18/2018 Are There Any [...] Most Recent Tobacco Screening? 06/10/2024 09/18/22MV44/2 07/19MV [email or web address] Information not available 06/10/2024 How Many Children Do You Have? 4 Triplets (age 18) And Another Son (21), 4 Boys, [email or web address] Information not available 02/22/2009 Seat Belts Used [...] Other Forms Of Tobacco Or Nicotine? No [email or web address] Information not available 01/21/2023 Sex: Female Functional [...] influenza, unspecified formulation 6 completed Not Available [facility] 01/11/2011 05:21:29 Influenza, split virus, trivalent, preservative 2 completed Not Available [facility] 03/15/2019 02:18:33 Influenza, split virus, quadrivalent, PF 5 completed Not Available [facility] 03/15/2019 02:20:12 Influenza, split virus, quadrivalent, PF 7 completed Not Available [facility] 03/15/2019 02:38:51 influenza, unspecified formulation 6 completed Yessi Conde CMA null, [facility] 06/10/2024 08:42:41 Td (adult), 2 Lf tetanus toxoid, preservative free, adsorbed 9 completed Not Available [facility] 03/15/2019 02:31:12 Influenza, split virus, quadrivalent, preservative 8 completed Yessi Conde CMA null, [facility] 06/10/2024 08:42:41 Influenza, split virus, quadrivalent, preservative 9 completed Yessi Conde CHICKEN VACCINATOR null, [facility] 06/10/2024 08:42:41 Influenza, split virus, quadrivalent, preservative 0 completed [facility] 06/10/2024 08:42:41 Tdap 9 completed Not Available [facility] 03/15/2019 02:26:10 COVID-19 vaccine, vector-nr, rS-Ad26, PF, 0.5 mL 1 completed [facility]ed[facility] Bell [place] [facility] 09/09/2021 08:44:01 COVID-19, mRNA, LNP-S, PF, 100 mcg/0.5mL dose or 50 mcg/0.25mL dose 1 completed [facility]edelia Bell [facility] [facility] 09/09/2021 08:44:35 influenza, unspecified formulation 2 completed [facility]edelia Bell [place] [facility] 03/10/2022 15:56:48 COVID-19 mRNA, bivalent, original/Omicron BA.1, Non-US Vaccine (Spikevax Bivalent), Moderna 2 completed [facility]edelia [facility] [facility] 03/10/2022 16:00:38 zoster recombinant 2 completed Yessi Conde CHICKEN VACCINATOR [facility] 06/10/2024 08:42:41 zoster recombinant 2 completed Yessiaye Conde, CHICKEN VACCINATOR [facility] 06/10/2024 08:42:41 influenza nasal, unspecified formulation 3 completed [facility]edelia Bell [place] [facility] 03/21/2023 15:42:41 COVID-19 mRNA, bivalent, original/Omicron BA.1, Non-US Vaccine (Spikevax Bivalent), Moderna 3 completed [facility]ed[facility] Bell [facility] [place] [facility] 03/21/2023 15:43:42 Influenza, MDCK, quadrivalent, PF 0 completed Yessi Conde, CHICKEN VACCINATOR [facility] 06/10/2024 08:42:41 Influenza, MDCK, quadrivalent, PF 1 completed Yessi Conde, CHICKEN VACCINATOR [facility] 06/10/2024 08:42:41 Influenza, MDCK, quadrivalent, PF 8 completed Yessi Conde, CHICKEN VACCINATOR [facility] 06/10/2024 08:42:41 Influenza, MDCK, quadrivalent, PF 3 completed Yessi Conde, CHICKEN VACCINATOR null, [facility] 06/10/2024 08:42:41 Influenza, MDCK, quadrivalent, PF 2 completed Yessi Conde, CHICKEN VACCINATOR null, [facility] 06/10/2024 08:42:41 Influenza, MDCK, quadrivalent, PF 9 completed Yessi Conde, CHICKEN VACCINATOR null, [facility] 06/10/2024 08:42:41 COVID-19, mRNA, LNP-S, bivalent, PF, 50 mcg/0.5 mL or 25mcg/0.25 mL dose 2 completed Yessi Conde, CHICKEN VACCINATOR null, [facility] 06/10/2024 08:42:41 COVID-19, mRNA, LNP-S, PF, 50 mcg/0.5 mL 3 completed Yessi Conde, CHICKEN VACCINATOR null, [facility] 06/10/2024 08:42:41 Influenza, split virus, trivalent, PF 6 completed Yessi Conde, CHICKEN VACCINATOR [facility] 06/10/2024 08:42:41 Past Encounters Encounter ID Performer Location Encounter Start Date Encounter Closed Date Diagnosis/Indication Diagnosis SNOMED-CT Code Diagnosis ICD10 Code Diagnosis Note [id number] Grzegorz Field MD , [facility] [place] [address] [place] [address] 04/03/2001 08:00:00 03/18/2008 02:02:29 [id number] Cecile Alvarez MD , [facility] [place] [address] [place] [address] 10/09/2001 15:01:09 03/18/2008 02:02:29 [id number] Ivette KING , [facility] OFFICE [address] [place] [address] 03/05/2002 08:56:54 03/18/2008 02:02:29 [id number] [facility] - [facility] [address] [facility] [place] [address] 03/20/2002 07:29:34 03/18/2008 02:02:29 [id number] Butch Robin PA-C , [facility] OFFICE [address] [place] [address] 1 05/13/2002 08:13:36 03/18/2008 02:02:29 [id number] Grzegorz Field MD , [facility], [address] [place] [address] 07/21/2002 09:27:33 03/18/2008 02:02:29 [id number] Norberto Morelos , [facility] OFFICE [address] [place] [address] 1 04/03/2003 08:28:30 04/06/2003 08:47:38 [id number] Carlos Reveles MD , [facility] OFFICE [address] [place] [address] 1 05/05/2003 13:36:20 05/06/2003 09:15:27 [id number] [facility] , [address] [place] [address] 05/05/2003 14:34:02 05/05/2003 15:19:26 [id number] [facility] , [address] [place] [address] 05/05/2003 00:00:00 03/18/2008 02:02:29 [id number] Arabella Arreaga, PT Physical Therapy, [address] [place] [address] 1 05/13/2003 12:18:37 05/13/2003 12:57:09 [id number] Arabella Arreaga PT Physical Therapy, [address] [place] [address] 05/25/2003 07:57:15 05/25/2003 09:11:48 [id number] Arabella Arreaga PT Physical Therapy, [address] [place] [address] 1 06/01/2003 11:58:29 06/01/2003 12:46:44 [id number] Arabella Arreaga PT Physical Therapy, [address] [place] [address] 1 06/15/2003 08:52:59 06/15/2003 10:20:59 [id number] Arabella Arreaga PT Physical Therapy, [address] [place] [address] 06/22/2003 09:06:11 06/22/2003 13:29:10 [id number] Arabella Arreaga, PT Physical Therapy, [facility] [address] [place] [address] 09/04/2003 08:50:21 09/04/2003 08:50:51 [id number] Arabella Arreaga, PT Physical Therapy, [facility] [address] 09/07/2003 09:34:06 09/07/2003 09:36:11 [id number] MD CHRISITNA Whitney, [facility] OFFICE [address] [place] [address] 09/04/2003 08:07:56 09/08/2003 09:33:04 [id number] Arabella Arreaga, PT Physical Therapy, [facility] [address] 1 09/09/2003 08:10:20 09/09/2003 08:32:22 [id number] Arabella Arreaga, PT Physical Therapy, [facility] [address] 1 09/14/2003 09:18:45 09/14/2003 12:50:09 [id number] Arabella Arreaga, PT Physical Therapy, [facility] [address] 09/16/2003 08:05:18 09/16/2003 08:30:53 [id number] Grzegorz Field MD , [facility] OFFICE [address] [place] [address] 09/21/2003 09:13:50 09/21/2003 17:44:56 [id number] MD CHRISTINA Whitney, [facility] OFFICE [address] [place] [address] 10/07/2003 13:29:58 10/07/2003 17:40:18 [id number] Carlos Reveles MD , [facility] OFFICE [address] [place] [address] 1 06/03/2004 09:13:52 06/06/2004 09:07:44 [id number] [facility] - [facility] [address] [place] [address] 06/03/2004 10:07:17 06/03/2004 10:07:40 [id number] MD CHRISTINA Whitney, [facility], OFFICE [address] [place] [address] 08/08/2004 10:21:00 08/09/2004 09:42:06 [id number] Carlos Reveles MD , [facility], [address] [place] [address] 08/12/2004 13:31:06 08/12/2004 17:29:14 [id number] Carlos Reveles MD , [facility], [address] [place] [address] 04/04/2005 09:46:27 04/05/2005 07:35:03 [id number] Elana Xiao NP , [facility], OFFICE [address] [place] [address] 11/14/2005 11:14:03 11/14/2005 13:55:49 [id number] Carlos Reveles MD , [facility] OFF[address] [place] [address] 01/11/2006 16:23:01 01/12/2006 09:08:51 [id number] Norberto Morelos , [facility], OFF[address] [place] [address] 01/26/2006 16:17:34 01/29/2006 10:23:29 [id number] Carlos Reveles MD , [facility], OFF[address] [place] [address] 01/29/2006 13:42:54 01/30/2006 08:23:16 [id number] [facility] - [address] [place] [address] 1 01/31/2006 09:01:46 01/31/2006 09:01:49 [id number] Arabella Arreaga PT Physical Therapy, [address] [place] [address] 02/01/2006 13:58:40 02/01/2006 13:58:47 [id number] [facility] , [address] [place] [address] 02/01/2006 13:15:57 02/01/2006 13:38:32 [id number] [facility] , [address] [place] [address] 02/01/2006 00:00:00 03/18/2008 02:02:29 [id number] Arabella Arreaga PT Physical Therapy, [address] [place] [address] 1 02/08/2006 14:06:06 02/08/2006 14:12:20 [id number] Arabella Arreaga, PT Physical Therapy, [facility] [address] 02/15/2006 14:01:18 02/15/2006 14:01:23 [id number] Carlos Reveles MD , [facility] OFFICE [address] [place] [address] 1 03/01/2006 13:11:39 03/02/2006 15:43:19 [id number] Arabella Arreaga PT Physical Therapy, [address] [place] [address] 1 03/13/2006 13:05:02 03/13/2006 13:05:14 [id number] MD CHRISTINA Whitney, [facility] OFFICE [address] [place] [address] 1 03/20/2006 12:38:42 03/21/2006 09:20:24 [id number] Arabella Arreaga PT Physical Therapy, [address] [place] [address] 1 03/22/2006 11:16:00 03/22/2006 13:05:42 [id number] Arabella Arreaga, PT Physical Therapy, [address] [place] [address] 1 04/02/2006 12:37:04 04/02/2006 12:37:17 [id number] Arabella Arreaga, PT Physical Therapy, [facility] [address] 1 04/09/2006 12:37:00 04/09/2006 12:37:14 [id number] Arabella Arreaga PT Physical Therapy, [address] [place] [address] 1 04/17/2006 07:54:45 04/17/2006 08:18:44 [id number] Arabella Arreaga, PT Physical Therapy, [address] [place] [address] 1 04/24/2006 13:20:35 04/24/2006 13:20:49 [id number] Arabella Arreaga PT Physical Therapy, [facility] [address] 1 05/21/2006 12:35:53 05/21/2006 12:36:18 [id number] Arabella Arreaga PT Physical Therapy, [address] [place] [address] 1 06/05/2006 12:33:06 06/05/2006 12:52:27 [id number] MD CHRISTINA Whitney, [facility], OFF[address] [place] [address] 08/06/2006 13:31:56 08/07/2006 07:35:53 [id number] MD CHRISTINA Whitney, [facility], OFFICE [address] [place] [address] 1 04/22/2008 15:41:37 04/27/2008 11:18:43 [id number] Vikash Pendleton PA-C , [facility], OFF[address] [place] [address] 07/02/2008 15:35:49 07/03/2008 12:18:24 [id number] [facility] - [address] [place] [address] 06/18/2008 07:10:08 06/18/2008 07:10:13 [id number] [facility] - [address] [place] [address] 07/03/2008 08:14:32 07/03/2008 08:14:37 [id number] Husam Dennis OD [facility], [address] [place] [address] 10/12/2008 10:42:39 10/12/2008 12:08:39 [id number] Stella Weiss MD , [facility], OFFICE [address] [place] [address] [place] [address] 02/22/2009 08:23:43 02/22/2009 15:43:00 [id number] Carlos Reveles MD , [facility], OFFICE [address] [place] [address] [place] [address] 10/26/2009 14:56:24 10/26/2009 16:27:53 [id number] [facility] MAMMOGRAPH Y [facility] st [facility] , [facility] [address] [facility] [place] [address] 07/14/2011 14:36:46 07/18/2011 13:50:46 [id number] Carlos Reveles MD , [facility], OFFICE [address] [place] [address] 07/14/2011 15:06:16 07/14/2011 16:12:09 [id number] MD CHRISTINA Whitney, [facility], OFFICE [address] [place] [address] 07/25/2011 15:28:46 07/25/2011 16:33:47 [id number] MD CHRISTINA Whitney, [facility], OFFICE [address] [place] [address] [place] [address] 10/16/2011 14:43:33 10/16/2011 15:30:09 [id number] MD CHRISTIAN Whitney, [facility], OFFICE [address] [place] [address] 1 04/15/2012 07:34:44 04/15/2012 08:19:53 [id number] Carlos Reveles MD , [facility], OFFICE [address] [place] [address] 08/30/2012 09:55:37 08/30/2012 10:56:31 [id number] Carlos Reveles MD , [facility], OFFICE [address] [place] [address] [place] [address] 07/03/2013 09:19:22 07/03/2013 10:53:28 Adult health examination [id number] see Risk Assessment and Lifestyle Change Counseling section above Counseling [id number] Migraine without aura 75113275 Intermitte nt palpitations [id number] Carlos Reveles MD , [facility], OFFICE [address] [place] [address] [place] [address] 08/14/2013 15:41:35 08/14/2013 16:51:04 Migraine without aura [id number] Carlos Reveles MD , [facility], OFFICE [address] [place] [address] [place] [address] 09/11/2013 10:24:29 09/11/2013 11:18:18 Migraine without aura 22372531 [id number] Carlos Reveles MD , [facility] OFFICE [address] [place] [address] [place] [address] 01/25/2015 13:48:32 01/25/2015 14:58:49 Active or passive immunization [id number] Z23 Adult heal th examination 821976188 Z00.00 see Risk Assessment and Lifestyle Change Counseling section above Migraine without aura 56 212288 G43.009 Allergic rhinitis 782936 04 J30.9 [id number] MD CHRISTINA Whitney, [facility], OFFICE [address] [place] [address] [place] [address] 03/08/2015 15:08:04 03/08/2015 15:30:29 Migraine without aura 68300337 G43.772 [id number] MD CHRISTINA Whitney, [facility], OFFICE [address] [place] [address] 1 04/12/2015 14:27:14 04/12/2015 16:25:20 Migraine without aura 71369170 G43.009 Allergic rhinitis 278892 04 J30.9 Lingular tonsillitis 195 395742 J03.90 [id number] MD CHRISTINA Whitney, [facility], OFFICE [address] [place] [address] 1 06/25/2015 10:34:07 06/25/2015 13:24:36 Fatigue 20388907 R53.83 Menorrhagia 349149703 N9 2.0 [id number] MD CHRISTINA Whitney, [facility], OFFICE [address] [place] [address] 07/01/2015 14:54:07 07/02/2015 10:45:00 Headache 45973136 R51 Impairment of balance 38 9379277 R42 [id number] Carlos Reveles MD , [facility], OFFICE [address] [place] [address] [place] [address] 1 07/12/2015 11:41:16 07/13/2015 11:06:41 Impairment of balance 724797779 R42 Migraine without aura 56 582881 G43.022 [id number] Carlos Reveles MD , [facility], OFFICE [address] [place] [address] [place] [address] 1 01/27/2016 15:22:20 01/27/2016 16:08:26 Adult health examination 605391100 Z00.00 see Risk Assessment and Lifestyle Change Counseling section above Counseling 044629453 Z71 .9 Screening mammography 24 173633 Z12.31 Migraine without aura 56 142726 G43.234 [id number] MD CHRISTINA Whitney, [facility], OFFICE [address] [place] [address] 02/02/2017 14:04:44 02/02/2017 15:59:31 Adult health examination 265543509 Z00.00 see Risk Assessment and Lifestyle Change Counseling section above Counseling 476608312 Z71 .9 Active or passive immunization 934277565 Z23 Mixed hyperlipidemia 267 016574 E78.2 Migraine without aura 56 891413 G43.009 Benign jessica plasm of choroid 72882568 D31.32 [id number] Babar Jordan MD , [facility], OFFICE [address] [place] [address] 03/13/2017 09:33:07 03/13/2017 10:38:43 Acute bronchitis 35648701 J20.9 Afebrile, lungs clear. Suspect viral. Encourage supportive care with extra sleep/rest , ample hydration, humidifier /hot steam shower, semi-uprig ht sleeping position. Cough suppressan t as below. Return for worsening cough, fever > 101, or persisting Sx > 2 weeks. [id number] Sung Bryant MD , [facility], [address] [place] [address] 04/01/2017 10:57:35 04/05/2017 10:05:08 Acute upper respiratory infection 60067187 J06.9 Educated patient that URI is a [...] to resolve in 2-4 weeks. Acute bronchitis 3606682 2 J20.9 low peak flows; low initial oxygen; lung exam normal; treat for bronchitis , close follow up; see Anushka Sunday; albuterol did not make a large clinical difference to her but did raise her oxygen. Did NOT prescribe albuterol will use prednisone instead and monitor closely [id number] Carlos Reveles MD , [facility], OFFICE [address] [place] [address] 04/03/2017 13:59:14 04/03/2017 14:41:34 Acute bronchitis 73493265 J20.9 [id number] Carlos Reveles MD , [facility], OFFICE [address] [place] [address] 1 04/06/2017 14:47:54 04/09/2017 09:12:41 Acute bronchitis 21285600 J20.9 [id number] Carlos Reveles MD , [facility], [place] [address] [place] [address] 1 08/28/2017 14:45:13 08/28/2017 15:19:06 Tinnitus of left ear 8707548000 106 H93.12 Pain in left knee 069377 5583 25289 M25.562 Pain of sa croiliac joint 365459690 M53.3 [id number] Trista Hanks, PT, DPT, CSCS Physical Therapy, [facility] [address] [place] [address] 09/05/2017 14:18:07 09/10/2017 13:21:36 Lumbar radiculopathy 264346743 M54.16 Pt is a 47 y.o. female [...] edema massage, manual therapy, ROM, patient education. [id number] Trista Hanks, PT, DPT, CSCS Physical Therapy, [facility] [address] [place] [address] 09/07/2017 11:31:57 09/07/2017 13:38:10 Lumbar radiculopathy 779610445 M54.16 Pt tolerated gentle pressure directly to [...] if they occur.Cont inue PT per POC [id number] Trista Hanks, PT, DPT, CSCS Physical Therapy, [facility] [address] [place] [address] 09/13/2017 15:21:29 09/14/2017 11:33:06 Lumbar radiculopathy 718366781 M54.16 Pt understood concepts discussed and explanatio ns made regarding overview of x-ray and feels confident with continuing PT POC on top of pursuing referral for physiatry. During mechanical traction, pt didn't note immediate relief, however, upon standing and walking around pt noted moderate relief both in low back and LLE pain as well as visibly looked less shifted.Co ntinue PT per POC [id number] Trista Hanks, PT, DPT, CSCS Physical Therapy, [address] [address] 09/18/2017 12:46:39 09/18/2017 15:04:18 Lumbar radiculopathy 458631003 M54.16 Pt understood concepts discussed and explanatio ns made regarding overview of mechanical traction. Pt again tolerated mechanical traction well and pain-free. Afterwards , pt states soreness as she experience d last time, but does demonstrat e decreased lateral shift..Con tinue PT per POC, progress therex [id number] Trista Hanks, PT, DPT, CSCS Physical Therapy, [address] [address] 10/09/2017 09:33:35 10/09/2017 10:40:29 Lumbar radiculopathy 257010782 M54.16 Pt continues to note relief with lumbar traction and now combined with self lateral shift correction pt upright and pain-free at end of visit.Cont inue PT per POC, wean off of traction in favor of progressin g exercises as needed. [id number] Trista Hanks, PT, DPT, CSCS Physical Therapy, [address] [address] 10/16/2017 09:29:26 10/16/2017 10:27:01 Lumbar radiculopathy 265571225 M54.16 Pt tolerated progressio n of exercises [...] shift.Cont inue PT per POC, progress therex [id number] Trista Hanks, PT, DPT, [facility] Physical Therapy, [address] [address] 10/23/2017 14:22:02 10/23/2017 15:12:51 Lumbar radiculopathy 978978129 M54.16 Pt tolerated progressio ns to exercises [...] into an exercise.C ontinue PT per POC [id number] Trista Hanks, PT, DPT, [facility] Physical Therapy, [address] [address] 10/30/2017 15:47:45 10/30/2017 16:14:37 Lumbar radiculopathy 882212167 M54.16 Pt tolerated progressio ns to exercises well and painfree. Pt required only initial cueing on proper posture but then able to maintain and self-corre ct independen tly. 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 With this knowledge pt feels better prepared to manage symptoms independen tly.Pt to take a couple weeks off to re-assess for further needs. [id number] Carlos Reveles MD , [facility], OFF[address] [facility] [address] 02/07/2018 15:15:07 02/07/2018 16:01:18 Mixed hyperlipidemia 200706741 E78.2 Adult heal th examination 250716269 Z00.00 see Risk Assessment and Lifestyle Change Counseling section above Counseling 828193906 Z71 .9 Depression screening 171 145509 Z13.89 depression screening tool administer ed, entered into emr, scored and discussed, time greater than 7.5 minutes Screening mammography 24 759791 Z12.31 Migraine without aura 56 854224 G43.168 [id number] Babar Jordan MD , [facility], OFFICE [address] [place] [address] 05/08/2018 15:27:28 05/08/2018 17:31:06 Chest pain 78218695 R07.9 New onset angina x4 days with T wave inversions in leads I & V4-6 on EKG. Hemodynami maurice stable. Reviewed with ES and RV.324mg aspirin (chewed) given to pt in office. Pt sent via EMS to [facility] to r/o ACS/KS. [id number] Babar Jordan MD , [facility], OFFICE [address] [place] [address] 05/20/2018 10:40:55 05/20/2018 12:29:11 Anemia [id number] D64.9 During hospitaliz ation, recheck levels. Most recent H/H 9.9/31.3 Acute non- ST segment elevation myocardial infarction [id number] I21.4 S/p NSTEMI and 3 vessel CABG 05/10/[address] Holloway. On plavix/asa /metoprolo l/atorvast atin. FMLA paperwork completed. 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 Continue daily weights. F/u with Dr. Holloway as scheduled 05/27/18. Cardiac rehab 05/31/[address] Holloway. She will see cardiologi st 06/13/18. Advised to see Dr. Reveles in the next month.Home VNA and telehealth . Coronary arteriosclerosis [id number] I25.10 S/p NSTEMI and 3 vessel CABG 05/10/[address] Holloway. On plavix/asa /metoprolo l/atorvast atin. F/u with Dr. Holloway 05/27/18. Mixed hyperlipidemia [id number] E78.2 Now on high dose statin Postoperative pain [id number] G89.18 Using tylenol RTC. Tramadol twice daily- has enough for the next week. Reviewed R/B/A. Gabapentin will be done in 2 days- not sure it is helping, she will taper off. Constipation [id number] K5 9.00 Mild, secondary to tramadol. Continue docusate- can call for renewal if needed. Fatigue [id number] R53.83 Repeat CBC. Likely multifacto rial from medical issues and typical recovery, as well as new meds. Discussed monitoring BP at home and signs/symp toms to monitor for- will have VNA services with telehealth . 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 6774128 I25.2 Coronary arteriosclerosis 32210949 I25.10 [id number] Carlos Reveles MD , [facility] [place] [address] [place] [address] 08/22/2018 13:10:19 08/22/2018 13:59:43 Mixed hyperlipidemia 965070263 E78.2 Angina pectoris 01000990 0 I20.9 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 6189002 I25.2 Active or passive immunization 715035551 Z23 Coronary arteriosclerosis 89598630 I25.10 [id number] Carlos Reveles MD , [facility] [place] [address] [place] [address] 11/14/2018 14:55:15 11/14/2018 15:42:41 Mixed hyperlipidemia 286498521 E78.2 Angina pectoris 28563311 0 I20.9 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 2434657 I25.2 Coronary arteriosclerosis 95442850 I25.10 Chest wall pain 88894221 6 R07.89 Insomnia 380689916 G47.0 0 [id number] Babar Jordan MD , [facility] [place] [address] [place] [address] 03/19/2019 15:33:07 03/19/2019 16:28:19 Adult health examination 460930629 Z00.00 Doing well since KS/CABG last year. Continue to work on healthy diet and regular exercise. UTD on routine screenings . Counseling 702776135 Z71 .9 Depression screening 171 047464 Z13.89 . Mood has been good. depression screening tool administer ed, entered into emr, scored and discussed, time greater than 7.5 minutes Mixed hyperlipidemia 267 040582 E78.2 Cholestero l is at goal Continue to work on diet and exercise as discussed Angina pectoris 59924498 0 I20.9 No recent symptoms. 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 Holloway. On plavix/asa /metoprolo l/atorvast atin.Recen t f/u with Dr. Zack grewal Per the consult note- she was advised to stop the plavix, but she does not recall this. She will remain on and call them tomorrow to clarify and let us know. Eruption 503027621 R21 Irritation at incision scar from CABG 04/2018. Trial of mupirocin. Discussed signs/symp toms to monitor for. F/u if no improvemen t in 1-2 weeks. Coronary arteriosclerosis 60556235 I25.10 S/p NSTEMI and 3 vessel CABG 05/10/[address] Holloway. On plavix/asa /metoprolo l/atorvast atin. Migraine without aura 56 803011 G43.009 No migraines since KS 04/2018. [id number] Babar Jordan MD , [facility] [place] [address] [place] [address] 09/22/2019 09:53:46 09/22/2019 13:07:27 Mixed hyperlipidemia 097117197 E78.2 Due for labs. Continue to work on diet and exercise as discussed. Coronary arteriosclerosis 22281438 I25.10 S/p NSTEMI and 3 vessel CABG 05/10/[address] Holloway. On asa/metopr olol/rosuv astatin and ezetimibe. Discussed increased risk with her medical hx and COVID 19. Angina pectoris 61480641 0 I20.9 No recent symptoms. 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 Holloway. On plavix/asa /metoprolo l/rosuvast atin and ezetimibe. Recent f/u with Dr. Zack grewal Due for labs. Migraine without aura 56 815093 G43.009 No migraines since KS 04/2018. Low back pain 546197413 M54.5 Will send back to PT to work on alignment/ core strength. [id number] Trista Raymond, PT, DPT, [facility], [address] [address] 09/29/2019 11:43:32 09/29/2019 13:34:42 Low back pain 093642000 M54.5 Pt is a 49 y.o. female [...] modalities PRN, edema massage, manual therapy, ROM. [id number] Trista Raymond, PT, DPT, [facility], [address] [address] 10/06/2019 13:09:58 10/06/2019 13:56:41 Low back pain 548154076 M54.5 Pt demonstrat es a near full resolution of her lateral shift, demonstrat ing only 10% of a shift still visible. Pt with no c/o pain with progressio n of HEP and feels confident in her continued completion . Will follow up next week. [id number] Trista Raymond, PT, DPT, [facility], [address] [address] 10/17/2019 08:41:30 10/17/2019 09:28:03 Low back pain 209179465 M54.5 Pt with complete resolution of lateral shift with ease of transition al movements. 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 Pt with no c/o pain with progressio n of HEP. Pt will follow up in 2.5 weeks to reasses for further needs. [id number] Trista Raymond, PT, DPT, [facility], [address] [address] 11/04/2019 15:24:36 11/04/2019 16:18:09 Low back pain 444209525 M54.5 Pt with complete resolution of lateral shift demonstrat ing full and pain-free lumbar AROM. Pt with extensive HEP that combined with tools/stra tegies provided pt feels confident and independen t utilizing to manage symptoms. Pt will follow up with PT PRN. [id number] Babar Jordan MD , [facility] [place] [place] [address] [place] [address] 04/28/2020 13:24:54 05/10/2020 18:56:42 Adult health examination 673822104 Z00.00 Continue to work on healthy diet and regular exercise. UTD on pap 08/2017. Due for mammogram. Will be due for baseline screening colonoscop y this yr. Will refer. Discussed COVID vaccine, which she will pursue. Counseling 756614485 Z71 .9 including cardiovasc ular risk reduction counseling Depression screening 171 965273 Z13.89 0. Mood has been stable. depression screening tool administer ed, entered into emr, scored and discussed, time greater than 7.5 minutes Screening for alcohol abuse 603940646 Z13.39 05/07 Screening mammography 24 305092 Z12.31 Screening for malignant neoplasm of colon 686240692 Z12.11 Referral for a DIRECT booked colonoscop y. This patient is a healthy ASA Class 1 or 2 patient (only mild systemic disease), or a STABLE, well controlled insulin dependent diabetic. They do not have serious cardiac disease ie KS/angiopl asty within 1 year, symptomati c CHF; renal failure with CKD 4 or 5; take Coumadin, Plavix, Aggrenox, etc. Coronary arteriosclerosis 02038296 I25.10 S/p NSTEMI and 3 vessel CABG 05/10/[address] Holloway. On asa/metopr olol/rosuv astatin and ezetimibe. Discussed increased risk with her medical hx and COVID 19. plans to get vaccine. Mixed hyperlipidemia 267 830663 E78.2 Continue to work on diet and exercise as discussed. Angina pectoris 93440302 0 I20.9 No recent symptoms. Exercising regularly. [id number] Zachariah Ogden MD [facility], [facility] [address] [facility] [place] [address] 10/13/2020 12:18:18 10/14/2020 06:44:34 [id number] Michelle Quiñonez . , [facility] [place] [place] [address] [place] [address] 06/30/2021 15:49:16 07/01/2021 07:28:39 Coronary arteriosclerosis 93804788 I25.10 S/p NSTEMI and 3 vessel CABG 05/10/[address] Hopkins lowkristy cards once/year- apt exertional symptoms, no anginaBP at goalTaking meds as prescribed Continue asa, metoprolol , statin, zetia Mixed hyperlipidemia 267 901007 E78.2 Due for updated labsLDL at goal <70 last yearCheck LFTs as aboveConti nue statin, zetiaRegul ar exercise , balanced diet Insomnia 026106393 G47.0 0 No issues on amitriptyl ine Migraine without aura 56 873848 G43.009 Not currently endorsing [id number] Michelle Quiñonez . , [facility] [place] [place] [address] [place] [address] 09/09/2021 08:29:26 09/09/2021 09:35:04 Adult health examination 078519046 Z00.00 In good healthCont inues with regular exercise/b alanced dietDiscus sed ShingrexPa p deferred today due to menses, will obtain at [facility] 01/2021 normal- [id number] 09/2020 repeat 5 yearsBP at goal <130/80F/u 6 mo MM, sooner prn Counseling 614511144 Z71 .9 including cardiovasc ular risk reduction counseling Depression screening 171 296585 Z13.31 depression screening tool administer ed, entered into emr, scored and discussed, time greater than 7.5 minutes, 0, mood is stable Screening for alcohol abuse 309707921 Z13.39 05/07 no concern for abuse, discussed moderation Mixed hyperlipidemia 267 321616 E78.2 LDL goal <70 due to CAD, recent LDL 84LFTs WNLContinu e statin, zetiaIs exercising daily 2-5 mi on treadmill, added yoga this summer, discussed alternativ e modalities and diet mods as increase in lipids this year and has not seen weight loss Screening for malignant neoplasm of cervix 711346227 Z12.4 Deferred today due to menses, obtain next visit Dysfunctio n of eustachian tube 10985094 H69.93 Will try flonase, ET dysfunctio n bilateral on exam, Dr. Lackey also evaluated Tinnitus 44030456 H93.12 Using white noise, ENT 2018, consider updated referral to ENT if becomes more bothersome Migraine without aura 56 363140 G43.009 Not currently endorsing Coronary arteriosclerosis 30109565 I25.10 S/p NSTEMI and 3 vessel CABG 05/10/[address] Kellie benavidez cards once/year- apt upcomingNo exertional symptoms, no anginaBP at goalTaking meds as prescribed Continue asa, metoprolol , statin, zetia Benign jessica plasm of choroid 01653784 D31.32 Follows annually with eye doc [id number] Michelle Quiñonez . FP, [facility] [place] [place] [address] [place] [address] 03/10/2022 15:29:07 03/10/2022 16:38:14 Screening for malignant neoplasm of cervix 228800836 Z12.4 Pap today Mixed hyperlipidemia 267 975512 E78.2 LDL goal <70 due to CAD, recent LDL 84LFTs WNLContinu e statin, zetiaUpdat e labs prior to next visitC/t lifestyle mods Coronary arteriosclerosis 63297398 I25.10 S/p NSTEMI and 3 vessel CABG 05/10/[address] Kellie strong once/yearN o exertional symptoms, no anginaBP at goalTaking meds as prescribed Continue asa, metoprolol , statin, zetia Angina pectoris 06881296 0 I20.9 No current symptoms [id number] Michelle Quiñonez . MD VASQUEZ, [facility] [place] [place] [address] [place] [address] 06/28/2022 15:48:12 06/28/2022 16:26:01 Cyst of skin 599371694 L72.9 R upper back x monthsNo tenderness , is not infectedNo n purulent thick discharge expressed w/ light pressure todayRefer to gen surg for ? removal as discussedM onitor for s/s infection ongoing [id number] Michelle Quiñonez . MD [facility], [facility] [place] [place] [address] [place] [address] 09/18/2022 08:58:11 09/19/2022 17:04:37 Adult health examination 932497663 Z00.00 Mammo 01/2021 q2yr, orderedPap UTD 02/2022 recall 5 yearsColo UTD 09/2020 repeat 5 years BP at goalLabs UTDRec stay UTD covid boosters, flu shots annually 6 mo MM, sooner prn Depression screening 171 700948 Z13.31 depression screening tool administer ed, Screening for alcohol abuse 020469801 Z13.39 Alcohol use screening tool administer ed, 03/09 Mixed hyperlipidemia 267 409763 E78.2 LDL goal <70 due to CAD, recent LDL 77Continue statin, zetiaEncou raged to discuss w/ cardiologi st at upcoming visitC/t lifestyle mods Coronary arteriosclerosis 29695186 I25.10 S/p NSTEMI and 3 vessel CABG 05/10/[address] Kellie strong once/yearN o exertional symptoms, no anginaBP at goalTaking meds as prescribed Continue asa, metoprolol , statin, zetia Migraine without aura 56 521498 G43.009 Not currently endorsingA mitriptyli ne daily Benign jessica plasm of choroid 74271183 D31.32 Follows with eye doc Screening mammography 24 803591 Z12.31 Angina pectoris 54767587 0 I20.9 No current symptoms [id number] Sung Bryant MD , [facility], [address] [place] [address] 01/21/2023 08:58:48 01/21/2023 09:26:25 Localized eruption of skin 749596075 R21 Patients presents for evaluation of rash consistent with: collin Treated with: ketoconazo le and nystatin powder Follow up if rash is not improving or with other concerns. [id number] Lulú Mccarthy MD , [facility] [place] [place] [address] [place] [address] 03/21/2023 15:22:49 03/22/2023 09:38:55 Coronary arteriosclerosis 04047408 I25.10 Almost 5yrs s/p NSTEMI, CABG x 3. LDL not quite at goal despite max dose rosuvastat in + ezetimibe. Encouraged to eat more plant-base d diet, continue exercise. Screening mammography 24 510938 Z12.31 Scheduled for 05/15/23 Angina pectoris 01426093 0 I20.9 See above. No recurrence on regimen of ASA, BB, statin, ezetimibe. Mixed hyperlipidemia 267 928956 E78.2 LDL not quite at goal < 70 despite max dose rosuvastat in + ezetimibe. Encouraged plant based diet and f/u lipids q6mo. Tinnitus of left ear 879 7264115 106 H93.12 [id number] Bruna Enriquez MD , [facility] [place] [place] [address] [place] [address] 06/21/2023 15:56:53 06/21/2023 16:49:15 Achilles tendinitis 14810202 M76.60 2 years of worsening pain along bilateral achilles tendons, worse with walking, not responsive to rest, ice/heat, elevation, Tylenol, heel insertsS/p KS and CABG on aspirin -- avoiding NSAIDsWill refer to sports medicine, PT for resistance trainingAv oid excessive loading like jumping, sprinting [id number] Bri Ortiz MD Sports Medicine, [facility] [address] [place] [address] 07/30/2023 13:35:22 07/30/2023 14:52:28 Achilles tenosynovitis 377824141 M65.869 Enedelia is a 53-year-ol d female with bilateral ankle pain due to mid substance Achilles tendinosis . I discuss this diagnosis with her today as well as discussing options for treatment. We discussed physical therapy, the use of heel lifts, nitroglyce rin patches, and potential surgery. Her son is studying sports medicine and from her descriptio dav is graduating as an link trainer. She would like to have him [...] on if her symptoms are not improving. [id number] BURTON PATE MD , [facility] [place] [place] [address] [place] [address] 06/10/2024 15:17:40 06/11/2024 13:34:23 Adult health examination 887555243 Z00.00 Glenna patient, she is a triplet Mom!!Her kids are grown and out of the house. 5 year recall for colonoscop y .5 year recall on PAP (done 2022) due 2027. Mammo due September 2024 see below. HCP on file. never smoker Depression screening 171 635832 Z13.31 depression screening tool administer ed negative Screening for alcohol abuse 555070423 Z13.39 Alcohol use screening tool administer ed; almost never drinks ETOH, only rare special occasion. Immunization due 1080742 08 Z23 pneumonia History of coronary artery bypass grafting 982787656 Z95.1 Reports some SOB, not sure if related to CAD;Follow s with Dr. Zack demarco; cardiologi st; has scheduled stress test next week. Cont ASA, BB, and statin. Benign jessica plasm of soft tissue 75349553 D22.9 Sent photo to Jaleesa KING to ask for curbside advice, on if she needs biopsy. Screening mammography 24 339481 Z12.31 due September, will do every 1.5 years. Mixed hyperlipidemia 267 370092 E78.2 c/w rosuvastat in and zetia; LDL at goal; recheck q 6 months. Obese class II 016315704 1 91130 E66.812 Want to ensure all risk factors [...] Lowe Member ID Guarantor Name 01/21/[address] [facility] [place] [id number] Javed Garnica Alejandro [id number] 98 Enedelia Pinto Alejandro 03/21/[address] [facility] [place] [id number] Javed Garnica Alejandro [id number] 98 Enedelia Pinto Alejandro 06/21/2023 1 [facility] Enedelia Blair Alejandro [id number] 1 Enedelia Blair Alejandro 07/30/2023 1 [facility] Enedelia Pinto Alejandro [id number] 1 Enedelia Pinto Alejandro 06/10/2024 1 [facility] Enedelia M Alejandro [id number] 1 Enedelia Pinto Alejandro Notes Date Note Type Note Provider Name and Address Organization Details Recorded Time 3 text/html Rash under both breasts and on sternum, ongoing for several weeks red and itchy around breastsitchyno new medsno one with similair rash at home applied cortisone cream with no benefitand no laundry detergent changes Martita William, [address], [address], [facility] 01/21/2023 09:27:54 4 text/html [facility] Coronary Artery [...] to care Context:Nonsmoker; No peripheral vascular disease (83044); No diabetes; No carotid artery stenosis Associated [...] manage conditionNotes:on zetia and rosuvastatin 40 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 Sleep depends on work stress. Gets max 6hr/night during school yr, and 8-9hr/night during summer.Denies home stressors. Went 6mo without menses. LMP 113 and still spotting.Not currently having hot flashes. 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 She denies any injuries. She has never had any previous ankle or foot surgery or injections. Bri Ortiz MD [address] [place] [address], [phone], [facility] 07/30/2023 14:50:32 5 text/html 54F Wellness. Worries about spot on left cheek / face; not a sun worshiper; minimal sunburns, wears SPF 50 plus. 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 to ; home life is good.Four grown kids. Not feeling empty nest sadness. LLOYD PEREZ PA-C [address] [place], [address], [facility] 06/10/2024 18:06:19 OBGyn Episode No OBEpisode recorded.
--- NOTE | 2024-06-27 08:13 | A.OFFVIS_ITS ---
Vital Signs 06/27/24 08:16 Height 5 ft 5 in Weight 210 lb 5.136 oz BMI 35.0 BP 110/70 Blood Pressure Location Lt brachial Position Sitting Pulse 67 Pulse Source Pulse Oximeter Intake Visit Reasons: results stress test and SOB, [facility] Counselor Required: No Accompanied by: Significant Other Allergies No Known Allergies Allergy (Verified 03/06/23 12:59) Medication List - Last Reconciled 06/27/24 by Jazzmine Hilliard, ENVIRONMENTAL PERMITTING SPECIALIST-C amitriptyline 25 mg PO BEDTIME aspirin 81 mg PO DAILY ezetimibe 10 mg PO DAILY metoprolol tartrate 50 mg PO BID rosuvastatin 40 mg PO DAILY HPI HPI results stress test and SOB,: Details: Enedelia is a 54-year-old female past medical history of hyperlipidemia, CAD, coronary artery bypass grafting, 5 years ago who presents for follow-up after recent stress test. An echocardiogram has been ordered as well and was denied by insurance. Today she reports that she has been doing generally well since her last visit. She does noticed some shortness of breath at times with activity. She also has brief heart palpitations that she describes as fluttering. No sustained rapid or irregular rates. She denies any chest discomfort at rest or with activity. No PND, orthopnea or edema. No lightheadedness, presyncope, syncope, falls. She is trying to walk routinely for exercise. She is compliant with her medications. 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 [employer] Surgical History History of coronary artery bypass graft x 3 (~05/10/18) Family History Father CVD (cardiovascular disease) Mother CVD (cardiovascular disease) Social History Patient Tobacco Use Status: Never used Tobacco Review of Systems Const All systems reviewed & are unremarkable except as noted in HPI and below Denies chills, Denies fatigue, Denies fever(s), Denies frequent falls, Denies weakness, Denies weight gain and Denies weight loss ENT Denies dizziness Card Details: palpitations Denies chest pain, Denies leg edema, Denies lightheadedness, Denies palpitations, Reports dyspnea and Denies dyspnea on exertion Resp Denies cough, Reports dyspnea and Denies dyspnea on exertion GI Denies hematochezia Musc Denies abnormal gait, Denies muscle weakness, Denies numbness, Denies radiating pain into limb and Denies tingling Neuro Denies abnormal gait, Denies dizziness, Denies frequent falls, Denies numbness, Denies tingling and Denies weakness Endo Denies fatigue and Denies palpitations Physical Exam Vital Signs: Last Vital Signs Pulse 67 06/27/24 08:16 BP 110/70 06/27/24 08:16 BMI result Body Mass Index 35.0 Const General: cooperative, healthy appearing, comfortable and no acute distress Orientation/consciousness: patient oriented x3 Neck Neck: Yes normal visual inspection Resp Effort & Inspection: normal respiratory effort Auscultation: clear to auscultation bilaterally, no rales, no rhonchi and no wheezes Cardio Rate: regular rate Rhythm: regular rhythm Heart sounds: S1 normal heart sound present, S2 normal heart sound present, no gallops, no murmurs and no rubs Neuro General: patient oriented x3 Extrem General: Yes normal to inspection, No no pedal edema and No calf tenderness Psych Appearance: grossly normal Mental Status: mental status grossly normal Speech and movement: Normal speech and movement present Assessment & Plan Assessment & Plan (1) Atherosclerotic cardiovascular disease: Code(s): I25.10 - Atherosclerotic heart disease of menominee coronary artery without angina pectoris Category: Medical Plan: CAD with coronary artery bypass grafting x3 05/10/2018. EKG last visit shows normal sinus rhythm with nonspecific T-wave abnormality, rate 83. Nuclear stress test done 06/19/24 with exercise 8.5 minutes with mild shortness of breath, with EKG changes with normal myocardial perfusion imaging. She is reporting some intermittent shortness of breath. Order an echocardiogram to assess EF, wall motion and valves. Continue aspirin indefinitely. Continue rosuvastatin with ideal LDL goal less than 70. Continue metoprolol. Signs and symptoms of angina reviewed. Plan to call her with echo results. Cardiology follow-up 6 months, sooner if needed. (2) Status post coronary artery bypass graft: Comment: 05/10/2018, three-vessel Code(s): Z95.1 - Presence of aortocoronary bypass graft Category: Surgical (3) Shortness of breath: Code(s): R06.02 - Shortness of breath Category: Medical Plan: As above (4) Palpitation: Code(s): R00.2 - Palpitations Category: Medical Plan: Reports of brief fluttering in her chest. Pulse is regular on examination. Will check a Holter monitor. (5) Other and unspecified hyperlipidemia: Code(s): E78.5 - Hyperlipidemia, unspecified Category: Medical Plan: LDL goal less than 70. No recent labs in our system. She reports labs done by her PCP.- will try to obtain Plan Time spent on chart review, documentation, interview assessment Orders: Orders CA echo transthoracic complete Today I25.10 - Atherosclerotic heart disease of menominee coronary artery without angina pectoris, R00.2 - Palpitations, R06.02 - Shortness of breath, Z95.1 - Presence of aortocoronary bypass graft ECG 3 day holter monitor Today I25.10 - Atherosclerotic heart disease of menominee coronary artery without angina pectoris, R00.2 - Palpitations, R06.02 - Shortness of breath, Z95.1 - Presence of aortocoronary bypass graft Coding Level of Care Code Est Pt Level 4 (56085) Complex EM visit Add On G2211 Diagnoses Atherosclerotic cardiovascular disease I25.10 Status post coronary artery bypass graft Z95.1 Shortness of breath R06.02 Palpitation R00.2 Other and unspecified hyperlipidemia E78.5 Time Spent (min) 30
[2024-06-27 08:16] VITALS: BP 110/70; PULSE 67; BMI 35.0
== END 2024-06-27 08:59 | disposition home or self-care (01) ==
LOC: HO.HCS 07:49
PROVIDERS: Visit Provider Nurse Practitioner Family
DX: I25.10 Atherosclerotic heart disease of native coronary artery without angina pectoris (principal); Z95.1 Presence of aortocoronary bypass graft; R06.02 Shortness of breath; R00.2 Palpitations; E78.5 Hyperlipidemia, unspecified
CPT/HCPCS: 99214

== ENCOUNTER → 2024-06-27 07:49 | Outpatient (BNVA) | payer OTHER, SELFPAY | PROVIDERS: Visit Provider Nurse Practitioner Family ==

== ENCOUNTER → 2024-07-24 12:28 | Outpatient (REF) | payer OTHER, SELFPAY ==
--- OUTSIDE RECORDS SUMMARY | 2024-07-24 12:30 | XMS_ITS | Data Portability ---
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 Plan of Treatment Reminders Order Date Submit Date Provider Last Modified By Organization Details Last Modified Time Details Appointments Same Day Appt, 15 2024 04:00P M Katty Olson PA-C Not available Not available Not available Mammog nicolás, Screen ing 2024 02:30P M [facility] Operator Helper Not available Not available Not available LAB Follow -Up 2024 06:40A [facility] Lab Not available Not available Not available Medica l Manage ment 2024 04:30P M LLOYD PEREZ PA-C Not available Not available Not available LAB Follow -Up 2025 06:40A [facility] Lab Not available Not available Not available Wellne ss Visit 30 2025 04:00P M LLOYD PEREZ PA-C Not available Not available Not available Lab lipid panel, serum [address] [facility], [address] [place] [address], [id number], 06/10/2024 17:57:39 CMP, serum or plasma [address] [facility], [address] [place] [address], [id number], 06/10/2024 17:57:39 lipid panel, serum [address] [facility], [address] [place] [address], [id number], 06/10/2024 17:57:39 CMP, serum or plasma [address] [facility], [address] [place] [address], [id number], 06/10/2024 17:57:39 TSH, serum or plasma [address] [facility], [address] [place] [address], [id number], 06/10/2024 18:00:54 HbA1c (hemog lobin A1c), blood [address] [facility], [address] [place] [address], [address], 06/10/2024 18:00:54 Referral physic al therap ist referr al - Bilate ral mid-sanchez bstanc e achill es tendin osisHi p and core streng thenin gImpro ve glute activa tionEc centri c sales leader ior chain streng thenin g (Shaquille dson protoc ol)Pos terior chain stretc hingMa nual therap y and modali ties PRNHEP 2023 024 [email or web address] [facility], [address] [place] [address], [address], 08/01/2023 08:45:47 sports medici ne referr al 2023 024 [email or web address] Bri Ortiz MD, [address] [place] [address], [address], 06/27/2023 09:34:09 physic al therap ist referr al 2023 024 [email or web address] [facility] (Imaging), [address], [place], [address], 06/25/2023 10:41:54 otolar yngolo gist referr al 2023 024 [email or web address] [facility], [address], [address], [place], [address], 03/23/2023 08:55:01 Procedures None record ed. Surgeries None record ed. Imaging MAMMO, screen ing, tomosy nthesi s, bilate ral - DUE SEPTEMBER 20242024 025 [facility] ([facility]), [address], [place], [address], 07/01/2024 11:45:35 Medication Orders amoxic illin 875 mg-pot assium clavul anate 125 mg tablet 2024 025 [facility], [address] [place], [address], 07/23/2024 15:32:09 Patient TargetsNo targets recorded. Patient Instructions Encounter Date Encounter Id Patient Instructions Last Modified By Organization Details Last Modified Time 07/30/2023 [id number] Do physical therapy with your son Let me know if you would like a referral to formal therapy Try wearing heel lifts Follow-up in 12 weeks for a recheck Not available 07/30/2023 14:32:55 All of the patients questions were answered and they understand the plan of care. Thank you for allowing me to participate in the care of your patient. Please feel free to contact me with any questions regarding their care. Not available 07/30/2023 14:33:00 Reason for Referral Conductor/Engineer Referral fo r Tinnitus of left ear Referring Physician: Lulú Mccarthy, Family Medicine, Encounter Date: 03/21/2023 Referring Physician: Amparo Woodward [facility], Encounter Date: 06/21/2023 Physical Therapist Referral for Achilles tendinitis Referring Physician: Barbara [facility], Encounter Date: 06/21/2023 Physical Therapist Referral for Achilles tenosynovitis Bilateral mid-substance achilles tendinosisHip and core strengtheningImprove glute activationEccentric posterior chain strengthening (Fidelson protocol)Posterior chain stretchingManual therapy and modalities PRNHEP Referring Physician: Bri Ortiz, Sports Medicine, Encounter Date: 07/30/2023 Results Created Date Observation Date Name Description Value Unit Range Abnormal Flag Note LastModifiedBy Organization Detail LastModifiedTime 06/06/1906/05/2024 CBC WBC 7.23 K/? ? ?L 3.98-1 0.04 Not Available [address], [address], 06/05/2024 10:30:06 06/06/1906/05/2024 CBC RBC 5.31 M/? ? ?L 3.93-5 .22 high Not Available [address], [address], 06/05/2024 10:30:06 06/06/1906/05/2024 CBC HGB 15.6 g/dL 11.2-1 5.7 Not Available [address], [address], 06/05/2024 10:30:06 06/06/1906/05/2024 CBC HCT 47.5 % 34.1-4 4.9 high Not Available [address], [address], 06/05/2024 10:30:06 06/06/1906/05/2024 CBC MCV 89.5 fL 79.4-9 4.8 Not Available [address], [address], 06/05/2024 10:30:06 06/06/1906/05/2024 CBC MCH 29.4 pg 25.6-3 2.2 Not Available [address], [address], 06/05/2024 10:30:06 06/06/19 25 06/05/2024 CBC MCHC 32.8 g/dL 32.2-3 5.5 Not Available [address], [address], 06/05/2024 10:30:06 06/06/19 25 06/05/2024 CBC plt 421 K/? ? ?L 182-36 9 high Not Available [address], [address], 06/05/2024 10:30:06 06/06/19 25 06/05/2024 CBC MPV 10.6 fL 9.4-12 .3 Not Available [address], [address], 06/05/2024 10:30:06 06/06/19 25 06/05/2024 CBC neut% 58.7 % 34.0-7 1.1 Not Available [address], [address], 06/05/2024 10:30:06 06/06/1906/05/2024 CBC neut# 4.24 1.56-6 .13 Not Available [address], [address], 06/05/2024 10:30:06 06/06/1906/05/2024 CBC lymph % 28.9 % 19.3-5 1.7 Not Available [address], [address], 06/05/2024 10:30:06 06/06/19 25 06/05/2024 CBC lymph # 2.09 K/? ? ?L 1.18-3 .74 Not Available [address], [address], 06/05/2024 10:30:06 06/06/19 25 06/05/2024 CBC mono% 8.2 % 4.7-12 .5 Not Available [address], [address], 06/05/2024 10:30:06 06/06/19 25 06/05/2024 CBC mono# 0.59 0.24-0 .56 high Not Available [address], [address], 06/05/2024 10:30:06 06/06/19 25 06/05/2024 CBC eo% 3.3 % 0.7-5. 8 Not Available [address], [address], 06/05/2024 10:30:06 06/06/19 25 06/05/2024 CBC eo# 0.24 0.04-0 .36 Not Available [address], [address], 06/05/2024 10:30:06 06/06/19 25 06/05/2024 CBC baso% 0.8 % 0.1-1. 2 Not Available [address], [address], 06/05/2024 10:30:06 06/06/1906/05/2024 CBC baso# 0.06 0.00-0 .08 Not Available [address], [address], 06/05/2024 10:30:06 06/06/1906/05/2024 CBC RDW-CV 12.8 % 11.7-1 4.4 Not Available [address], [address], 06/05/2024 10:30:06 06/06/19 25 06/05/2024 CBC Ig% 0.100 % 0.000- 1.500 Ig % >0.5 Indic ates possi ble Left Shift Not Available [address], [address], 06/05/2024 10:30:06 04/10/06/05/2024 CBC Ig# 0.010 0.000- 0.093 Not Available [address], [address], 06/05/2024 10:30:06 06/06/1906/05/2024 CBC NRBC% 0.0 % 0.0-0. 2 Not Available [address], [address], 06/05/2024 10:30:06 06/06/19 25 06/05/2024 CBC NRBC# 0.000 0.000- 0.012 Not Available [address], [address], 06/05/2024 10:30:06 06/06/19 25 06/05/2024 COMP. METAB OLIC PANEL glucose 96 mg/dL 70-100 Not Available [address], [address], 06/05/2024 15:36:26 06/06/19 25 06/05/2024 COMP. METAB OLIC PANEL BUN 12 mg/dL 7-18 Not Available [address], [address], 06/05/2024 15:36:26 06/06/19 25 06/05/2024 COMP. METAB OLIC PANEL creatinine 0.8 mg/dL 0.8-1. 3 Not Available [address], [address], 06/05/2024 15:36:26 06/06/19 25 06/05/2024 COMP. METAB OLIC PANEL B/C 15.0 ratio Not Available [address], [address], 06/05/2024 15:36:26 06/06/19 25 06/05/2024 COMP. METAB [...] borat ion (CKD- EPI) Equat ion (Natty lala et. al 2020) as recom ellyn d by the Natio n[facility] ation . eGFR is based on age, serum creat inine , and sex. CKD-E PI does not calcu late eGFR by race, does not apply to child jeannette (age <18 years ), and shoul d not be used in pregn caryl. Not Available [address], [address], 06/05/2024 15:36:26 06/06/19 25 06/05/2024 COMP. METAB OLIC PANEL sodium 141 mmol/ L 136-14 5 Not Available [address], [address], 06/05/2024 15:36:26 06/06/19 25 06/05/2024 COMP. METAB OLIC PANEL potassium 5.4 mmol/ L 3.5-5. 1 high Not Available [address], [address], 06/05/2024 15:36:26 06/06/19 25 06/05/2024 COMP. METAB OLIC PANEL chloride 104 mmol/ L 96-107 Not Available [address], [address], 06/05/2024 15:36:26 06/06/19 25 06/05/2024 COMP. METAB OLIC PANEL anion gap 9.9 5.0-15 .0 Not Available [address], [address], 06/05/2024 15:36:26 06/06/19 25 06/05/2024 COMP. METAB OLIC PANEL CO2 27 mmol/ L 21-32 Not Available [address], [address], 06/05/2024 15:36:26 06/06/19 25 06/05/2024 COMP. METAB OLIC PANEL calcium 9.7 mg/dL 8.5-10 .3 Not Available [address], [address], 06/05/2024 15:36:26 06/06/19 25 06/05/2024 COMP. METAB OLIC PANEL total protein 7.9 g/dL 6.4-8. 2 Not Available [address], [address], 06/05/2024 15:36:26 06/06/19 25 06/05/2024 COMP. METAB OLIC PANEL albumin 4.4 g/dL 3.4-5. 0 Not Available [address], [address], 06/05/2024 15:36:26 06/06/19 25 06/05/2024 COMP. METAB OLIC PANEL globulin 3.5 g/dL Not Available [address], [address], 06/05/2024 15:36:26 06/06/19 25 06/05/2024 COMP. METAB OLIC PANEL A/G 1.3 ratio 0.8-2. 0 Not Available [address], [address], 06/05/2024 15:36:26 06/06/19 25 06/05/2024 COMP. METAB OLIC PANEL total bilirubin 0.60 mg/dL 0.00-1 .00 Not Available [address], [address], 06/05/2024 15:36:26 06/06/19 25 06/05/2024 COMP. METAB OLIC PANEL AST 32 U/L 0-37 Not Available [address], [address], 06/05/2024 15:36:26 06/06/19 25 06/05/2024 COMP. METAB OLIC PANEL ALT 56 U/L 6-63 Not Available [address], [address], 06/05/2024 15:36:26 06/06/19 25 06/05/2024 COMP. METAB OLIC PANEL alk. phos. 98 U/L 50-136 Not Available [address], [address], 06/05/2024 15:36:26 06/06/19 25 06/05/2024 LIPID PANEL cholesterol 113 mg/dL <200 mg/dl Valeria able 200-2 39 mg/dl Borde rline High >240 mg/dl High Not Available [address], [address], 06/05/2024 15:36:28 06/06/19 25 06/05/2024 LIPID PANEL triglyceride s 57 mg/dL <150 mg/dL Milagros l 150-1 99 mg/dL Borde rline High 200-4 99 mg/dL High >500 mg/dL Very High Not Available [address], [address], 06/05/2024 15:36:28 06/06/19 25 06/05/2024 LIPID PANEL direct HDL 39 mg/dL <40 mg/dl - Major Risk for CHD >60 mg/dl - Negat dangelo Risk for CHD Not Available [address], [address], 06/05/2024 15:36:28 06/06/19 25 06/05/2024 LDL - [...] 0-1 risk facto r is not matthew sappy. Not Available [facility] [address] [facility], [place], [address], 06/05/2024 15:36:29 04/16/19 24 04/16/2023 MAMMO , [...] on 2023 at 02:53: 20 PM Angelica abrtlett Physic ace: Pancho Paniagua ms [email or web address] [facility] (Imaging) [address], [place], [address], 04/30/2023 09:21:41 Result Notes None recorded. 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 [facility] . [place], [address], [facility] 5 16:55:46 Coronary arterios clerosis 86984214 Active 2018 CABG, 3 VESSEL MD [place], [address], [facility] 4 15:03:16 Obese class II 37569892787 4105 Active 2024 LLOYD PEREZ PA-C [address] [place] [address] [place], [address], [facility] 5 17:58:48 Palpitat ions 56881805 Active 2024 Per Card Note Morelia Alvarez LPN null, [facility] 5 15:35:28 Internal hemorrho ids 41748665 Completed 200601/15/2013 MD [place], [address], [facility] 6 12:07:07 Contusio n 599546094 Completed 200307/06/2011 MD Lav[place], [address], [facility] 6 12:07:07 Cough 11955908 Completed 07/06/2011 MD Lav[place], [address], [facility] 6 12:07:07 Migraine without aura 42332130 [place], [address], [facility] 6 12:23:49 Benign neoplasm of choroid 55823318 Completed 200802/02/2017 [place], [address], [facility] 7 14:44:24 Acute cystitis 62156315 Completed 200207/06/2011 [place], [address], [facility] 6 12:07:07 Neck pain 27685506 Completed 200301/15/2013 Carlos Reveles MD [facility] [place], [address], [facility] 6 12:07:07 Acute pharyngi tis 999405545 Completed 07/06/2011 [place], [address], [facility] 6 12:07:07 Influenz a 8764002 Completed 07/06/2011 [place], [address], [facility] 6 12:07:07 Dizzines s 359124864 Completed 200307/06/2011 [place], [address], [facility] 6 12:07:07 Breast lump 55145103 Completed 200407/06/2011 [place], [address], [facility] 6 12:07:07 Acute upper respirat ory infectio n 34070718 Completed 07/06/2011 [place], [address], [facility] 6 12:07:07 Common cold 27795666 Completed 200207/06/2011 Carlos Reveles MD [address] [place], [address], [facility] 6 12:07:07 On examinat ion - a rash Completed 200107/06/2011 Carlos Reveles MD [address] [place], [address], [facility] 6 12:07:07 Brachial neuritis 61283550 Completed 200507/06/2011 [place], [address], [facility] 6 12:07:07 Bipolar I disorder 443830560 Completed 200407/03/2013 [place], [address], [facility] 6 12:07:07 Acute maxillar y sinusiti s 98907866 Completed 200507/06/2011 [place], [address], [facility] 6 12:07:07 Low back pain 851980981 Completed 200107/06/2011 Carlos Reevles MD [address] [place], [address], [facility] 6 12:07:07 Backache 193290042 Completed 200307/06/2011 Carlos Reveles MD [address] [place], [address], [facility] 6 12:07:07 Acute bronchit is 25446034 Completed 200307/06/2011 Carlos Reveles MD [address] [place], [address], [facility] 6 12:07:07 Primary fibromya lgia syndrome 97918121 Completed 200107/06/2011 Carlos Reveles MD [address] [place], [place] [address], [address], [facility] 6 12:07:07 Streptoc occal sore throat 40559653 Completed 200507/06/2011 Carlos Reveles MD [address] [place] [address] [place], [address], [facility] 6 12:07:07 Viral upper respirat ory tract infectio n 349887808 Completed 200507/06/2011 Carlos Reveles MD [address] [place], [place] [address], [address], [facility] 6 12:07:07 Pain of breast 51129229 Completed 200407/06/2011 Carlos Reveles MD [address] [place] [address] [place], [address], [facility] 6 12:07:07 Malaise and fatigue 367873663 Completed 200507/06/2011 Carlos Reveles MD [address] [place] [address] [place], [address], [facility] 6 12:07:07 Problem Notes None recorded. Procedures Surgical History Date Name Laterality Status Provider Name and Address Organization Details Recorded Time 09/10/19 22 Alcohol use screening completed NITO BLANCO PA-C [address] [place] [address], [address], [facility] 09/09/2021 09:39:56 09/10/19 22 Depression Screening completed NITO BLANCO PA-C [address] [place], [place] [address], [address], [facility] 09/09/2021 09:40:02 10/14/19 21 Tassoni - Colonoscopy completed Zachariah Ogden MD [address] [place] [address], [address], [facility] 10/13/2020 13:18:48 04/29/19 21 prevention-cardio vascular risk reduction counseling completed Rita Hook CMA [facility] 04/28/2020 12:00:30 04/29/19 21 prevention-annual alcohol misuse screening completed Rita Hook [facility] 04/28/2020 12:00:30 11/04/19 20 [address]: Therapeutic Exercise completed Trista Raymond PT, DPT, CSC [address] [place] [address], [address], [facility] 11/04/2019 15:57:02 10/17/19 20 [address]684: Therapeutic Exercise completed Trista Raymond PT, DPT, CSC [address] [place] [address], [address], [facility] 10/17/2019 09:16:11 10/06/19 20 [address]645: Therapeutic Exercise completed Trista Raymond PT, DPT, [address], [address], [facility] 10/06/2019 13:46:53 09/29/19 20 Physical Activity Counselling completed Trista Raymond PT, DPT, [address], [address], [facility] 09/29/2019 12:19:19 09/29/19 20 [address]155: PT Eval, Moderate Complexity completed Trista Raymond PT, DPT, [address], [address], [facility] 09/29/2019 11:48:35 05/21/19 19 Post hospital/SNF follow-up/Transit ional Care completed Orlando Unger [facility] 05/20/2018 10:48:09 05/11/19 19 CABG completed Lulú Mccarthy MD [address] [place] [address], [address], [facility] 03/21/2023 15:05:46 10/31/19 18 23185: Therapeutic Exercise completed Trista Hanks PT, DPT, [address], [address], [facility] 10/30/2017 16:12:53 10/31/19 18 Neuromuscular re-education completed Trista Hanks PT, DPT, [address], [address], [facility] 10/30/2017 15:51:45 10/24/19 18 43771: Manual Therapy completed Trista Hanks, PT, DPT, CSCS [address] [place] [address], [address], [facility] 10/23/2017 14:24:30 10/24/19 18 Neuromuscular re-education completed Trista Hanks, PT, DPT, CSCS [address] [place] [address], [address], [facility] 10/23/2017 14:24:30 10/17/19 18 23425: Manual Therapy completed Trista Hanks, PT, DPT, CSCS [address] [place] [address], [address], [facility] 10/16/2017 10:15:25 10/17/19 18 Neuromuscular re-education completed Trista Hanks PT, DPT, CSCS [address] [place] [address], [address], [facility] 10/16/2017 10:15:27 10/10/19 18 25577: Mechanical Traction completed Trista Hanks PT, DPT, CSCS [address] [place] [address], [address], [facility] 10/09/2017 09:47:00 10/10/19 18 85048: Therapeutic Activities - Direct 1:1 completed Trista Hanks, PT, DPT, CSCS [address] [place] [address], [address], [facility] 10/09/2017 10:20:41 09/19/19 18 56259: Mechanical Traction completed Trista Hanks, PT, DPT, CSCS [address] [place] [address], [address], [facility] 09/18/2017 12:55:31 09/19/19 18 02374: Therapeutic Activities - Direct 1:1 completed Trista Hanks, PT, DPT, CSCS [address] [place] [address], [address], [facility] 09/18/2017 12:57:19 09/14/19 18 01213: Mechanical Traction completed Trista Hanks, PT, DPT, CSCS [address] [place] [address], [address], [facility] 09/13/2017 15:51:53 09/14/19 18 72844: Therapeutic Activities - Direct 1:1 completed Trista Hanks, PT, DPT, CSCS [address] [place] [address], [address], [facility] 09/13/2017 16:10:47 09/08/19 18 47084: Manual Therapy completed Trista Hnaks, PT, DPT, CSCS [address] [place] [address], [address], [facility] 09/07/2017 12:17:42 09/08/19 18 52181: E-Stim - Unattended completed Trista Hanks, PT, DPT, CSCS [address] [place] [address], [address], [facility] 09/07/2017 12:17:05 09/06/19 18 Physical Activity Counselling completed Trista Hanks, PT, DPT, CSCS [address] [place] [address], [address], [facility] 09/05/2017 15:31:29 09/06/19 18 34754: PT Eval, Moderate Complexity completed Trista Hanks, PT, DPT, CSCS [address] [place] [address], [address], [facility] 09/05/2017 15:32:11 04/01/19 18 Nebulizer Tx completed Genet Love LPN [facility] 04/01/2017 12:05:48 04/15/19 13 Shave Biopsy completed Vikash Pendleton PA-C [address] [place] [address], [address], [facility] 04/15/2012 08:18:19 02/23/20 09 Nebulizer Tx completed Enedelia Umanzor CMA [facility] 02/22/2009 09:13:02 02/26/19 01 Tubal Ligation completed Lulú Mccarthy MD [address] [place] [address], [address], [facility] 03/21/2023 15:04:48 Imaging Results None recorded. Procedure Notes None recorded. Medical Equipment None [...] by oral route. 06/18 completed Started at [facility] Not Available Not Available Not Available [...] Atrovent 42 mcg (0.06 %) nasal spray [place] 2 sprays in each nostril by intranas [...] by oral route. 2018 active Started at [facility] Not Available Not Available Not Available [...] by oral route. 08/22 completed Started at [facility] Not Available Not Available Not Available betaaristides lai augmented 0.05 % topical ointment active Not Available Not Available Not Available aspirin 81 mg chewable tablet Chew for 4 tablets once in office 05/17 completed Not Available Not Available Not Available Tylenol 325 mg tablet Take 3 tablets every 6 hours by oral route. 08/22 completed Started at [facility] Not Available Not Available Not Available [...] by oral route. 06/18 completed Started at [facility] Not Available Not Available Not Available [...] completed Not Available Not Available Not Available amoxicill in 875 mg-potass ium clavulana te 125 mg tablet Take 1 tablet every 12 hours by oral route for 5 days. 2024 active Not Available Not Available Not Avai lable ezetimibe 10 mg tablet Take 1 tablet [...] by oral route. 06/18 completed Started at [facility] Not Available Not Available Not Available Fluvirin (PF) 45 mcg (15 mcg x 3)/0.5 mL intramusc ular syringe VACCINAT ION ADMINIST ERED BY PHARMACI ST 02/02 completed Not Available Not Available [...] IM syringe VACCINAT ION ADMINIST ERED BY [facility] ST 11/04 completed Not Available Not Available Not Available Vitals Date Recorded Body height Body mass index (BMI) Body weight Heart rate Systolic blood pressure Diastolic blood pressure Provider Name and Address Organization Details Last Updated DateTime 4 164.47 cm 34.5 kg/m2 72856.0 3 g 78 /min 112 mm[Hg] 72 mm[Hg] Enedelia Bell [facility] 4 16:21:33 Date Recorded Body height Body mass index (BMI) Body weight Heart rate Oxygen saturation Oxygen saturation in Arterial blood by Pulse oximetry Systolic blood pressure Diastolic blood pressure Provider Name and Address Organization Details Last Updated DateTime 5 164.47 cm 35.7 kg/m2 63902.1 7 g 80 /min 97 % 97 % 116 mm[Hg] 70 mm[Hg] Yessi Conde [facility] 5 16:11:31 Date Recorded Body height Body mass index (BMI) Body weight Heart rate Oxygen saturation Oxygen saturation in Arterial blood by Pulse oximetry Systolic blood pressure Diastolic blood pressure Provider Name and Address Organization Details Last Updated DateTime 4 164.47 cm 34 kg/m2 38170.2 5 g 86 /min 99 % 99 % 128 mm[Hg] 80 mm[Hg] Sharmaine Mayer [facility] 4 16:05:34 Date Recorded Body height Body mass index (BMI) Body weight Heart rate Oxygen saturation Oxygen saturation in Arterial blood by Pulse oximetry Systolic blood pressure Diastolic blood pressure Provider Name and Address Organization Details Last Updated DateTime 164.47 cm 35.2 kg/m2 68150.4 g 88 /min 99 % 99 % 124 mm[Hg] 68 mm[Hg] Sharmaine Mayer NAYELIDanika [facility] 15:11:36 Date Recorded Body height Systolic blood pressure Diastolic blood pressure Provider Name and Address Organization Details Last Updated DateTime 07/30/2023 164.47 cm 122 mm[Hg] 70 mm[Hg] Ewelina Miller [facility] 07/30/2023 14:11:12 Social History Question Answer Notes LastModified by Organizat ion Details LastModified Time Tobacco Smoking Status Never Smoker 06/30/21 AL09/18/MVMV/12/04 5fc 07/23/24 [facility] 15:10:10 Do You Have An Advance Directive? No 10/26/2009 Given Form To Complete [email or web address] Information not available 10/26/2009 What Type Of Diet Are You Following? REGULAR 06/10/24fc [email or web address] Information not available 06/10/2024 Which Illicit Or Recreational Drugs Have You Used? 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 Information not available 02/22/2009 How Many Days In The Past Year Have You Had A Heavy Drinking Consumption (4+ Female, 5+ Male)? 0 [email or web address] Information not available 06/18/2018 Are There Any Guns Present In Your Home? No [email or web address] Information not available 01/12/2011 Live Alone Or With Others? With Others [email or web address] Information not available 01/12/2011 Patient Has Health Care Proxy Signed And In Chart Yes Spouse [email or web address] Information not available 03/08/2015 Marital Status Information not available 01/12/2011 Mosquito Repellent Used Routinely Yes [email or web address] Information not available 01/12/2011 What Was The Date Of Your Most Recent Tobacco Screening? 06/10/2024 09/18/22MV44/2 07/19MV [email or web address] Information not available 06/10/2024 How Many Children Do You Have? 4 Triplets (age 18) And Another Son (21), 4 Boys, [email or web address] Information not available 02/22/2009 Seat Belts Used Routinely Yes [email or web address] Information not available 01/12/2011 Are You Sexually Active? Yes Information not available 03/19/2019 Smoke Alarm In Home Yes [email or web address] Information not available 01/12/2011 How Much Tobacco Do You Smoke? No Information not available 06/30/2021 General Stress Level Low [email or web address] Information not available 01/12/2011 Do You Use Sunscreen Routinely? Yes [email or web address] Information not available 01/12/2011 How Many Years Have You Smoked Tobacco? 0 Information not available 06/30/2021 Sex: Female Functional Status Question Answer Note LastModified by Organizat ion Details LastModified Time Do you or have you ever used any other forms of tobacco or nicotine? No [email or web address] Information not available 01/21/2023 What is your level of alcohol consumption? Occasional 03/19/19 JI very occasional Information not available 04/28/2020 Do you or have you ever used smokeless tobacco? Never used smokeless tobacco Information not available 06/30/2021 Are you currently employed? 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 Never used electronic cigarettes Information not available 06/30/2021 Mental Status None recorded. Family History Relationship [...] influenza, unspecified formulation 6 completed Not Available [facility] 01/11/2011 05:21:29 Influenza, split virus, trivalent, preservative 2 completed Not Available [facility] 03/15/2019 02:18:33 Influenza, split virus, quadrivalent, PF 5 completed Not Available [facility] 03/15/2019 02:20:12 Influenza, split virus, quadrivalent, PF 7 completed Not Available [facility] 03/15/2019 02:38:51 influenza, unspecified formulation 6 completed [facility] 08:42:41 Td (adult), 2 Lf tetanus toxoid, preservative free, adsorbed 9 completed Not Available [facility] 03/15/2019 02:31:12 Influenza, split virus, quadrivalent, preservative 8 completed Yessi Conde HAM DOCTOR null, [facility] 06/10/2024 08:42:41 Influenza, split virus, quadrivalent, preservative 9 completed [facility] 06/10/2024 08:42:41 Influenza, split virus, quadrivalent, preservative 0 completed [facility] Conde [facility] 06/10/2024 08:42:41 Tdap 9 completed Not Available [facility] 03/15/2019 02:26:10 COVID-19 vaccine, vector-nr, rS-Ad26, PF, 0.5 mL 1 completed [facility] 09/09/2021 08:44:01 COVID-19, mRNA, LNP-S, PF, 100 mcg/0.5mL dose or 50 mcg/0.25mL dose 1 completed [facility]edelia Bell [facility] 09/09/2021 08:44:35 influenza, unspecified formulation 2 completed Enedelia Bell [facility] 03/10/2022 15:56:48 COVID-19 mRNA, bivalent, original/Omicron BA.1, Non-US Vaccine (Spikevax Bivalent), Moderna 2 completed Enedelia Bell [facility] 03/10/2022 16:00:38 zoster recombinant 2 completed Yessidanika Conde, HAM DOCTOR [facility] 06/10/2024 08:42:41 zoster recombinant 2 completed Yessidanika Conde, HAM DO[facility] 06/10/2024 08:42:41 influenza nasal, unspecified formulation 3 completed Enedelia Bell [facility] 03/21/2023 15:42:41 COVID-19 mRNA, bivalent, original/Omicron BA.1, Non-US Vaccine (Spikevax Bivalent), Moderna 3 completed [facility]edelia Bell [facility] 03/21/2023 15:43:42 Influenza, MDCK, quadrivalent, PF 0 completed Yessi Conde, HAM [facility] 06/10/2024 08:42:41 Influenza, MDCK, quadrivalent, PF 1 completed Yessi Conde, [facility] 06/10/2024 08:42:41 Influenza, MDCK, quadrivalent, PF 8 completed Yessi Conde, [facility] 06/10/2024 08:42:41 Influenza, MDCK, quadrivalent, PF 3 completed Yessi Conde, HAM DOCTOR null, [facility] 06/10/2024 08:42:41 Influenza, MDCK, quadrivalent, PF 2 completed Yessi Conde, HAM DOCTOR null, [facility] 06/10/2024 08:42:41 Influenza, MDCK, quadrivalent, PF 9 completed Yessi Conde, [facility] 06/10/2024 08:42:41 COVID-19, mRNA, LNP-S, bivalent, PF, 50 mcg/0.5 mL or 25mcg/0.25 mL dose 2 completed Yessi Conde, HAM DOCTOR null, [facility] 06/10/2024 08:42:41 COVID-19, mRNA, LNP-S, PF, 50 mcg/0.5 mL 3 completed Yessi Conde, HAM DOCTOR null, [facility] 06/10/2024 08:42:41 Influenza, split virus, trivalent, PF 6 completed Yessi Conde, [facility] 06/10/2024 08:42:41 Past Encounters Encounter ID Performer Location Encounter Start Date Encounter Closed Date Diagnosis/Indication Diagnosis SNOMED-CT Code Diagnosis ICD10 Code Diagnosis Note [id number] Grzegorz Field MD , [facility], OFFICE [address] [place] [address] 04/03/2001 08:00:00 03/18/2008 02:02:29 [id number] Cecile Alvarez MD , [facility], OFFICE [address] [place] [address] 1 10/09/2001 15:01:09 03/18/2008 02:02:29 [id number] Ivette KING , [facility], OFFICE [address] [place] [address] 1 03/05/2002 08:56:54 03/18/2008 02:02:29 [id number] [facility] LAB LAB - [facility] [address] [facility] [place] [address] 03/20/2002 07:29:34 03/18/2008 02:02:29 [id number] Butch Robin PA-C , [facility], OFFICE [address] [place] [address] 1 05/13/2002 08:13:36 03/18/2008 02:02:29 [id number] Grzegorz Field MD , [facility], OFFICE [address] [place] [address] 07/21/2002 09:27:33 03/18/2008 02:02:29 [id number] Norberto Morelos , [facility], OFFICE [address] [place] [address] 1 04/03/2003 08:28:30 04/06/2003 08:47:38 [id number] Carlos Reveles MD , [facility], OFFICE [address] [place] [address] 1 05/05/2003 13:36:20 05/06/2003 09:15:27 [id number] [facility] RADIOLOGY [facility] , [address] [place] [address] 05/05/2003 14:34:02 05/05/2003 15:19:26 [id number] [facility] RADI[facility] , [address] [place] [address] 1 05/05/2003 00:00:00 03/18/2008 02:02:29 [id number] Arabella Arreaga PT Physical Therapy, [address] [place] [address] 1 05/13/2003 12:18:37 05/13/2003 12:57:09 [id number] Arabella Arreaga, PT Physical Therapy, [address] [place] [address] 1 05/25/2003 07:57:15 05/25/2003 09:11:48 [id number] Arabella Arreaga PT Physical Therapy, [address] [place] [address] 06/01/2003 11:58:29 06/01/2003 12:46:44 [id number] Arabella Arreaga PT Physical Therapy, [address] [place] [address] 1 06/15/2003 08:52:59 06/15/2003 10:20:59 [id number] Arabella Arreaga PT Physical Therapy, [address] [place] [address] 1 06/22/2003 09:06:11 06/22/2003 13:29:10 [id number] Arabella Looze, PT Physical Therapy, [facility] [address] [place] [address] 09/04/2003 08:50:21 09/04/2003 08:50:51 [id number] Arabella Arreaga, PT Physical Therapy, [facility] [place] [address] 1 09/07/2003 09:34:06 09/07/2003 09:36:11 [id number] MD CHRISTINA Whitney, [facility], OFFICE [address] [place] [address] 09/04/2003 08:07:56 09/08/2003 09:33:04 [id number] Arabella Arreaga, PT Physical Therapy, [facility] [place] [address] 09/09/2003 08:10:20 09/09/2003 08:32:22 [id number] Arabella Arreaga, PT Physical Therapy, [facility] [place] [address] 1 09/14/2003 09:18:45 09/14/2003 12:50:09 [id number] Arabella Arreaga, PT Physical Therapy, [facility] [place] [address] 1 09/16/2003 08:05:18 09/16/2003 08:30:53 [id number] Grzegorz Field MD , [facility], OFFICE [address] [place] [address] 09/21/2003 09:13:50 09/21/2003 17:44:56 [id number] Carlos Reveles MD , [facility], OFFICE [address] [place] [address] 1 10/07/2003 13:29:58 10/07/2003 17:40:18 [id number] Carlos Reveles MD , [facility], OFFICE [address] [place] [address] 1 06/03/2004 09:13:52 06/06/2004 09:07:44 [id number] [facility] LAB LAB - [facility] [address] 1 06/03/2004 10:07:17 06/03/2004 10:07:40 [id number] MD CHRISTINA Whitney, [facility], OFFICE [address] [place] [address] 1 08/08/2004 10:21:00 08/09/2004 09:42:06 [id number] MD CHRISTINA Whitney, [facility], OFF[address] [place] [address] 08/12/2004 13:31:06 08/12/2004 17:29:14 [id number] Carlos Reveles MD , [facility], OFF[address] [place] [address] 04/04/2005 09:46:27 04/05/2005 07:35:03 [id number] Elana Xiao NP , [facility], OFF[address] [place] [address] 11/14/2005 11:14:03 11/14/2005 13:55:49 [id number] Carlos Reveles MD , [facility], OFFICE [address] [place] [address] 01/11/2006 16:23:01 01/12/2006 09:08:51 [id number] Norberto Morelos , [facility], OFFICE [address] [place] [address] 01/26/2006 16:17:34 01/29/2006 10:23:29 [id number] Carlos Reveles MD , [facility], [facility] [address] [place] [address] 01/29/2006 13:42:54 01/30/2006 08:23:16 [id number] [facility] LAB LAB - [address] [place] [address] 1 01/31/2006 09:01:46 01/31/2006 09:01:49 [id number] Arabella Arreaga, PT Physical Therapy, [address] [place] [address] 1 02/01/2006 13:58:40 02/01/2006 13:58:47 [id number] [facility] RADIOLOGY [facility] , [address] [place] [address] 02/01/2006 13:15:57 02/01/2006 13:38:32 [id number] [facility] RADIOLOGY [facility] , [address] [place] [address] 1 02/01/2006 00:00:00 03/18/2008 02:02:29 [id number] Arabella Arreaga, PT Physical Therapy, [address] [place] [address] 1 02/08/2006 14:06:06 02/08/2006 14:12:20 [id number] Arabella Arreaga PT Physical Therapy, [address] [place] [address] 1 02/15/2006 14:01:18 02/15/2006 14:01:23 [id number] Carlos Reveles MD , [facility], OFFICE [address] [place] [address] 1 03/01/2006 13:11:39 03/02/2006 15:43:19 [id number] Arabella Arreaga PT Physical Therapy, [address] [place] [address] 1 03/13/2006 13:05:02 03/13/2006 13:05:14 [id number] Carlos Reveles MD , [facility], OFFICE [address] [place] [address] 1 03/20/2006 12:38:42 03/21/2006 09:20:24 [id number] Arabella Arreaga PT Physical Therapy, [address] [place] [address] 03/22/2006 11:16:00 03/22/2006 13:05:42 [id number] Arabella Arreaga, PT Physical Therapy, [address] [place] [address] 1 04/02/2006 12:37:04 04/02/2006 12:37:17 [id number] Arabella Arreaga PT Physical Therapy, [address] [place] [address] 1 04/09/2006 12:37:00 04/09/2006 12:37:14 [id number] Arabella Arreaga PT Physical Therapy, [address] [place] [address] 1 04/17/2006 07:54:45 04/17/2006 08:18:44 [id number] Arabella Arreaga PT Physical Therapy, [address] [place] [address] 1 04/24/2006 13:20:35 04/24/2006 13:20:49 [id number] Arabella Arreaga PT Physical Therapy, [address] [place] [address] 1 05/21/2006 12:35:53 05/21/2006 12:36:18 [id number] Arabella Arreaga PT Physical Therapy, [address] [place] [address] 1 06/05/2006 12:33:06 06/05/2006 12:52:27 [id number] MD CHRISTINA Whitney, [facility], OFFICE [address] [place]Constantino[place] [address] 08/06/2006 13:31:56 08/07/2006 07:35:53 [id number] MD HCRISTINA Whitney, [facility], OFFICE [address] [place] [address] 04/22/2008 15:41:37 04/27/2008 11:18:43 [id number] Vikash Pendleton PA-C , [facility], OFFICE [address] [place]ino[place] [address] 07/02/2008 15:35:49 07/03/2008 12:18:24 [id number] [facility] LAB LAB - [address] [place] [address] 06/18/2008 07:10:08 06/18/2008 07:10:13 [id number] [facility] LAB LAB - [address] [place] [address] 07/03/2008 08:14:32 07/03/2008 08:14:37 [id number] Husam Dennis OD [facility], [address] [place] [address] 10/12/2008 10:42:39 10/12/2008 12:08:39 [id number] Stella Weiss MD , [facility], [address] [place] [address] 02/22/2009 08:23:43 02/22/2009 15:43:00 [id number] MD CHRISTINA Whitney, [facility], OFFICE [address] [place] [address] DR L[place]LEMICHAELConstantino[place] [address] 10/26/2009 14:56:24 10/26/2009 16:27:53 [id number] [facility] MAMMOGRAPH Y [facility] , [facility] [address] [facility] [place] [address] 07/14/2011 14:36:46 07/18/2011 13:50:46 [id number] MD CHRISTINA Whitney, [facility], [address] [place] [address] 07/14/2011 15:06:16 07/14/2011 16:12:09 [id number] MD CHRISTINA Whitney, [facility], OFFICE [address] [place] [address] [place] [address] 07/25/2011 15:28:46 07/25/2011 16:33:47 [id number] MD CHRISTINA Whitney, [facility], OFFICE [address] [place] [address] 1 10/16/2011 14:43:33 10/16/2011 15:30:09 [id number] MD CHRISTINA Whitney, [facility], OFFICE [address] [place] [address] 1 04/15/2012 07:34:44 04/15/2012 08:19:53 [id number] Carlos Reveles MD , [facility], OFFICE [address] [place] [address] 1 08/30/2012 09:55:37 08/30/2012 10:56:31 [id number] MD CHRISTINA Whitney, [facility], OFFICE [address] [place] [address] 1 07/03/2013 09:19:22 07/03/2013 10:53:28 Adult health examination [id number] see Risk Assessment and Lifestyle Change Counseling section above Counseling [id number] Migraine without aura 15854074 Intermitte nt palpitations 116037690 [id number] Carlos Reveles MD , [facility], OFFICE [address] [place] [address] 08/14/2013 15:41:35 08/14/2013 16:51:04 Migraine without aura 66922256 [id number] Carlos Reveles MD , [facility], OFFICE [address] [place] [address] 1 09/11/2013 10:24:29 09/11/2013 11:18:18 Migraine without aura 19613983 [id number] Carlos Reveles MD , [facility], OFFICE [address] [place] [address] [place] [address] 1 01/25/2015 13:48:32 01/25/2015 14:58:49 Active or passive immunization 987169340 Z23 Adult [facility] th examination 598335912 Z00.00 see Risk Assessment and Lifestyle Change Counseling section above Migraine without aura 56 861996 G43.009 Allergic rhinitis 732682 04 J30.9 [id number] MD CHRISTINA Whitney, [facility], OFFICE [address] [place] [address] 1 03/08/2015 15:08:04 03/08/2015 15:30:29 Migraine without aura 61217401 G43.298 [id number] MD CHRISTINA Whitney, [facility], OFFICE [address] [place] [address] 1 04/12/2015 14:27:14 04/12/2015 16:25:20 Migraine without aura 37355975 G43.009 Allergic rhinitis 636556 04 J30.9 Lingular tonsillitis 195 564857 J03.90 [id number] MD CHRISTINA Whitney, [facility], OFFICE [address] [place] [address] 1 06/25/2015 10:34:07 06/25/2015 13:24:36 Fatigue 32661424 R53.83 Menorrhagia 954680357 N9 2.0 [id number] MD CHRISTINA Whitney, [facility], OFFICE [address] [place] [address] 1 07/01/2015 14:54:07 07/02/2015 10:45:00 Headache 19831782 R51 Impairment of balance 38 9968790 R42 [id number] Carlos Reevles MD , [facility], OFFICE [address] [place] [address] [place] [address] 1 07/12/2015 11:41:16 07/13/2015 11:06:41 Impairment of balance 444282002 R42 Migraine without aura 56 488261 G43.462 [id number] Carlos Reveles MD , [facility], OFFICE [address] [place] [address] [place] [address] 1 01/27/2016 15:22:20 01/27/2016 16:08:26 Adult health examination 442255308 Z00.00 see Risk Assessment and Lifestyle Change Counseling section above Counseling 273356357 Z71 .9 Screening mammography 24 442500 Z12.31 Migraine without aura 56 749500 G43.244 [id number] MD CHRISTINA Whitney, [facility], OFFICE [address] [place] [address] 02/02/2017 14:04:44 02/02/2017 15:59:31 Adult health examination 988331807 Z00.00 see Risk Assessment and Lifestyle Change Counseling section above Counseling 069976409 Z71 .9 Active or passive immunization 408599650 Z23 Mixed hyperlipidemia 267 358942 E78.2 Migraine without aura 56 653681 G43.009 Benign jessica plasm of choroid 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 Suspect viral. Encourage supportive care with extra sleep/rest , ample hydration, humidifier /hot steam shower, semi-uprig ht sleeping position. Cough suppressan t as below. Return for worsening cough, fever > 101, or persisting Sx > 2 weeks. [id number] Sung Bryant MD , [facility], [address] [place] [address] 04/01/2017 10:57:35 04/05/2017 10:05:08 Acute upper respiratory infection 65932666 J06.9 Educated patient that URI is a [...] to resolve in 2-4 weeks. Acute bronchitis 4118050 2 J20.9 low peak flows; low initial oxygen; lung exam normal; treat for bronchitis , close follow up; see Anushka Sunday; albuterol did not make a large clinical difference to her but did raise her oxygen. Did NOT prescribe albuterol will use prednisone instead and monitor closely [id number] Carlos Reveles MD , [facility], OFFICE [address] [place] [address] 04/03/2017 13:59:14 04/03/2017 14:41:34 Acute bronchitis 78691316 J20.9 [id number] Carlos Reveles MD , [facility], OFFICE [address] [place] [address] 04/06/2017 14:47:54 04/09/2017 09:12:41 Acute bronchitis 41363079 J20.9 [id number] Carlos Reveles MD , [facility], [address] [place] [address] 08/28/2017 14:45:13 08/28/2017 15:19:06 Tinnitus of left ear 2925904626 106 H93.12 Pain in left knee 387257 9600 28587 M25.562 Pain of sa croiliac joint 163143257 M53.3 [id number] Trista Hanks, PT, DPT, CSCS Physical Therapy, [facility] [address] [place] [address] 09/05/2017 14:18:07 09/10/2017 13:21:36 Lumbar radiculopathy 322102104 M54.16 Pt is a 47 y.o. female [...] edema massage, manual therapy, ROM, patient education. [id number] Trista Hanks, PT, DPT, CSCS Physical Therapy, [facility] [address] [place] [address] 09/07/2017 11:31:57 09/07/2017 13:38:10 Lumbar radiculopathy 949474757 M54.16 Pt tolerated gentle pressure directly to [...] if they occur.Cont inue PT per POC [id number] Trista Hanks, PT, DPT, CSCS Physical Therapy, [facility] [address] [place] [address] 09/13/2017 15:21:29 09/14/2017 11:33:06 Lumbar radiculopathy 736377716 M54.16 Pt understood concepts discussed and explanatio ns made regarding overview of x-ray and feels confident with continuing PT POC on top of pursuing referral for physiatry. During mechanical traction, pt didn't note immediate relief, however, upon standing and walking around pt noted moderate relief both in low back and LLE pain as well as visibly looked less shifted.Co ntinue PT per POC [id number] Trista Hanks, PT, DPT, CSCS Physical Therapy, [address] [address] 09/18/2017 12:46:39 09/18/2017 15:04:18 Lumbar radiculopathy 400135099 M54.16 Pt understood concepts discussed and explanatio ns made regarding overview of mechanical traction. Pt again tolerated mechanical traction well and pain-free. Afterwards , pt states soreness as she experience d last time, but does demonstrat e decreased lateral shift..Con tinue PT per POC, progress therex [id number] Trista Hanks, PT, DPT, CSCS Physical Therapy, [address] [address] 10/09/2017 09:33:35 10/09/2017 10:40:29 Lumbar radiculopathy 065854549 M54.16 Pt continues to note relief with lumbar traction and now combined with self lateral shift correction pt upright and pain-free at end of visit.Cont inue PT per POC, wean off of traction in favor of progressin g exercises as needed. [id number] Trista Hanks, PT, DPT, CSCS Physical Therapy, [address] [address] 10/16/2017 09:29:26 10/16/2017 10:27:01 Lumbar radiculopathy 217849291 M54.16 Pt tolerated progressio n of exercises [...] shift.Cont inue PT per POC, progress therex [id number] Trista Hanks, PT, DPT, [facility] Physical Therapy, [address] [address] 10/23/2017 14:22:02 10/23/2017 15:12:51 Lumbar radiculopathy 906023098 M54.16 Pt tolerated progressio ns to exercises [...] into an exercise.C ontinue PT per POC [id number] Trista Hanks, PT, DPT, [facility] Physical Therapy, [address] [address] 10/30/2017 15:47:45 10/30/2017 16:14:37 Lumbar radiculopathy 016639920 M54.16 Pt tolerated progressio ns to exercises well and painfree. Pt required only initial cueing on proper posture but then able to maintain and self-corre ct independen tly. Pt instructed in the use of the squat when lifting heavy items versus the single leg -lift when lifting interpreter items. With this knowledge pt feels better prepared to manage symptoms independen tly.Pt to take a couple weeks off to re-assess for further needs. [id number] Carlos Reveles MD , [facility], OFFICE [address] [place] [address] 02/07/2018 15:15:07 02/07/2018 16:01:18 Mixed hyperlipidemia 019711459 E78.2 Adult heal th examination 015640049 Z00.00 see Risk Assessment and Lifestyle Change Counseling section above Counseling 170238174 Z71 .9 Depression screening 171 864560 Z13.89 depression screening tool administer ed, entered into emr, scored and discussed, time greater than 7.5 minutes Screening mammography 24 024210 Z12.31 Migraine without aura 56 151197 G43.284 [id number] Babar Jordan MD , [facility], OFFICE [address] [place] [address] 05/08/2018 15:27:28 05/08/2018 17:31:06 Chest pain 28714658 R07.9 New onset angina x4 days with T wave inversions in leads I & V4-6 on EKG. Hemodynami maurice stable. Reviewed with ES and RV.324mg aspirin (chewed) given to pt in office. Pt sent via EMS to [facility] to r/o ACS/MS. [id number] Babar Jordan MD , [facility], OFFICE [address] [place] [address] 05/20/2018 10:40:55 05/20/2018 12:29:11 Anemia 791655518 D64.9 During hospitaliz ation, recheck levels. Most recent H/H 9.931.3 Acute non- ST segment elevation myocardial infarction 555434942 I21.4 S/p NSTEMI and 3 vessel CABG [...] month.Home VNA and telehealth . Coronary arteriosclerosis 93584853 I25.10 S/p NSTEMI and 3 vessel CABG 05/10/[address] Holloway. On plavix/asa /metoprolo l/atorvast atin. F/u with Dr. Holloway 05/27/18. Mixed hyperlipidemia 267 552732 E78.2 Now on high dose statin Postoperative pain 97155 9007 G89.18 Using tylenol RTC. Tramadol twice daily- has enough for the next week. Reviewed R/B/A. Gabapentin will be done in 2 days- not sure it is helping, she will taper off. Constipation 13648965 K5 9.00 Mild, secondary to tramadol. Continue docusate- can call for renewal if needed. Fatigue 65348145 R53.83 Repeat CBC. Likely multifacto rial from medical issues and typical recovery, as well as new meds. Discussed monitoring BP at home and signs/symp toms to monitor for- will have VNA services with telehealth . 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 8535863 I25.2 Coronary arteriosclerosis 38388934 I25.10 [id number] Carlos Reveles MD , [facility], OFFICE [address] [place] [address] 08/22/2018 13:10:19 08/22/2018 13:59:43 Mixed hyperlipidemia 382849520 E78.2 Angina pectoris 89009085 0 I20.9 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 5687050 I25.2 Active or passive immunization 790025213 Z23 Coronary arteriosclerosis 81914826 I25.10 [id number] Carlos Reveles MD , [facility], OFFICE [address] [place] [address] 11/14/2018 14:55:15 11/14/2018 15:42:41 Mixed hyperlipidemia 338460689 E78.2 Angina pectoris 56850115 0 I20.9 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 5341037 I25.2 Coronary arteriosclerosis 94533477 I25.10 Chest wall pain 50175381 6 R07.89 Insomnia 695237895 G47.0 0 [id number] Babar Jordan MD , [facility], OFFICE [address] [place] [address] 03/19/2019 15:33:07 03/19/2019 16:28:19 Adult health examination 756166239 Z00.00 Doing well since MS/CABG last year. Continue to work on healthy diet and regular exercise. UTD on routine screenings . Counseling 047981922 Z71 .9 Depression screening 171 977329 Z13.89 . Mood has been good. depression screening tool administer ed, entered into emr, scored and discussed, time greater than 7.5 minutes Mixed hyperlipidemia 267 293520 E78.2 Cholestero l is at goal Continue to work on diet and exercise as discussed Angina pectoris 06574108 0 I20.9 No recent symptoms. 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 7573467 I25.2 S/p NSTEMI and 3 vessel CABG 05/10/[address] Holloway. On plavix/asa /metoprolo l/atorvast atin.Recen t f/u with Dr. Zack grewal Per the consult note- she was advised to stop the plavix, but she does not recall this. She will remain on and call them tomorrow to clarify and let us know. Eruption 089111345 R21 Irritation at incision scar from CABG 04/2018. Trial of mupirocin. Discussed signs/symp toms to monitor for. F/u if no improvemen t in 1-2 weeks. Coronary arteriosclerosis 33262274 I25.10 S/p NSTEMI and 3 vessel CABG 05/10/[address] Holloway. On plavix/asa /metoprolo l/atorvast atin. Migraine without aura 56 135879 G43.009 No migraines since MS 04/2018. [id number] Babar Jordan MD , [facility], [address] [place] [address] 09/22/2019 09:53:46 09/22/2019 13:07:27 Mixed hyperlipidemia 886645823 E78.2 Due for labs. Continue to work on diet and exercise as discussed. Coronary arteriosclerosis 69071905 I25.10 S/p NSTEMI and 3 vessel CABG 05/10/[address] Holloway. On asa/metopr olol/rosuv astatin and ezetimibe. Discussed increased risk with her medical hx and COVID 19. Angina pectoris 87449754 0 I20.9 No recent symptoms. 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 4250024 I25.2 S/p NSTEMI and 3 vessel CABG 05/10/[address] Holloway. On plavix/asa /metoprolo l/rosuvast atin and ezetimibe. Recent f/u with Dr. Zack grewal Due for labs. Migraine without aura 56 481374 G43.009 No migraines since MS 04/2018. Low back pain 384444318 M54.5 Will send back to PT to work on alignment/ core strength. [id number] Trista Raymond, PT, DPT, [facility], [address] [address] 09/29/2019 11:43:32 09/29/2019 13:34:42 Low back pain 035033117 M54.5 Pt is a 49 y.o. female [...] modalities PRN, edema massage, manual therapy, ROM. [id number] Trista Raymond, PT, DPT, [facility], [address] [address] 10/06/2019 13:09:58 10/06/2019 13:56:41 Low back pain 063648041 M54.5 Pt demonstrat es a near full resolution of her lateral shift, demonstrat ing only 10% of a shift still visible. Pt with no c/o pain with progressio n of HEP and feels confident in her continued completion . Will follow up next week. [id number] Trista Raymond, PT, DPT, [facility] Physical [facility], [address] [address] 10/17/2019 08:41:30 10/17/2019 09:28:03 Low back pain 099484088 M54.5 Pt with complete resolution of lateral shift with ease of transition al movements. 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 Pt with no c/o pain with progressio n of HEP. Pt will follow up in 2.5 weeks to reasses for further needs. [id number] Trista Raymond, PT, DPT, [facility], [address] [address] 11/04/2019 15:24:36 11/04/2019 16:18:09 Low back pain 263461137 M54.5 Pt with complete resolution of lateral shift demonstrat ing full and pain-free lumbar AROM. Pt with extensive HEP that combined with tools/stra tegies provided pt feels confident and independen t utilizing to manage symptoms. Pt will follow up with PT PRN. [id number] Babar Jordan MD , [facility], OFFICE [address] [place] [address] 04/28/2020 13:24:54 05/10/2020 18:56:42 Adult health examination 943793638 Z00.00 Continue to work on healthy diet and regular exercise. UTD on pap 08/2017. Due for mammogram. Will be due for baseline screening colonoscop y this yr. Will refer. Discussed COVID vaccine, which she will pursue. Counseling 393084025 Z71 .9 including cardiovasc ular risk reduction counseling Depression screening 171 819073 Z13.89 . Mood has been stable. depression screening tool administer ed, entered into emr, scored and discussed, time greater than 7.5 minutes Screening for alcohol abuse 570018001 Z13.39 05/07 Screening mammography 24 696280 Z12.31 Screening for malignant neoplasm of colon 450322908 Z12.11 Referral for a DIRECT booked colonoscop y. This patient is a healthy ASA Class 1 or 2 patient (only mild systemic disease), or a STABLE, well controlled insulin dependent diabetic. They do not have serious cardiac disease ie MS/angiopl asty within 1 year, symptomati c CHF; renal failure with CKD 4 or 5; take Coumadin, Plavix, Aggrenox, etc. Coronary arteriosclerosis 49940781 I25.10 S/p NSTEMI and 3 vessel CABG 05/10/[address] Holloway. On asa/metopr olol/rosuv astatin and ezetimibe. Discussed increased risk with her medical hx and COVID 19. plans to get vaccine. Mixed hyperlipidemia 267 433287 E78.2 Continue to work on diet and exercise as discussed. Angina pectoris 68482662 0 I20.9 No recent symptoms. Exercising regularly. [id number] Zachariah Ogden MD [facility], [facility] [address] [place] [address] 10/13/2020 12:18:18 10/14/2020 06:44:34 [id number] Michelle Quiñonez . , [facility], OFFICE [address] [place] [address] 06/30/2021 15:49:16 07/01/2021 07:28:39 Coronary arteriosclerosis 73673845 I25.10 S/p NSTEMI and 3 vessel CABG 05/10/[address] Hopkins lowkristy cards once/year- apt exertional symptoms, no anginaBP at goalTaking meds as prescribed Continue asa, metoprolol , statin, zetia Mixed hyperlipidemia 267 438032 E78.2 Due for updated labsLDL at goal <70 last yearCheck LFTs as aboveConti nue statin, zetiaRegul ar exercise , balanced diet Insomnia 369598995 G47.0 0 No issues on amitriptyl ine Migraine without aura 56 041140 G43.009 Not currently endorsing [id number] Michelle Quiñonez . , [facility], OFFICE [address] [place] [address] 09/09/2021 08:29:26 09/09/2021 09:35:04 Adult health examination 543607632 Z00.00 In good healthCont inues with regular exercise/b alanced dietDiscus sed ShingrexPa p deferred today due to menses, [facility] normal- [id number] 09/2020 repeat 5 yearsBP at goal <130/80F/u 6 mo MM, sooner prn Counseling 450992449 Z71 .9 including cardiovasc ular risk reduction counseling Depression screening 171 286570 Z13.31 depression screening tool administer ed, entered into emr, scored and discussed, time greater than 7.5 minutes, 0/, mood is stable Screening for alcohol abuse 651423697 Z13.39 05/07 no concern for abuse, discussed moderation Mixed hyperlipidemia 267 411401 E78.2 LDL goal <70 due to CAD, recent LDL 84LFTs WNLContinu e statin, zetiaIs exercising daily 2-5 mi on treadmill, added yoga this summer, discussed alternativ e modalities and diet mods as increase in lipids this year and has not seen weight loss Screening for malignant neoplasm of cervix 523822015 Z12.4 Deferred today due to menses, obtain next visit Dysfunctio n of eustachian tube 15031763 H69.93 Will try flonase, ET dysfunctio n bilateral on exam, Dr. Lackey also evaluated Tinnitus 54525663 H93.12 Using white noise, ENT 2018, consider updated referral to ENT if becomes more bothersome Migraine without aura 56 517682 G43.009 Not currently endorsing Coronary arteriosclerosis 27627607 I25.10 S/p NSTEMI and 3 vessel CABG 05/10/[address] 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 MD [facility], [facility], [address] [place] [address] 03/10/2022 15:29:07 03/10/2022 16:38:14 Screening for malignant neoplasm of cervix 565412911 Z12.4 Pap today Mixed hyperlipidemia 267 991226 E78.2 LDL goal <70 due to CAD, recent LDL 84LFTs WNLContinu e statin, zetiaUpdat e labs prior to next visitC/t lifestyle mods Coronary arteriosclerosis 60036759 I25.10 S/p NSTEMI and 3 vessel CABG 05/10/[address] Kellie strong once/yearN o exertional symptoms, no anginaBP at goalTaking meds as prescribed Continue asa, metoprolol , statin, zetia Angina pectoris 27254541 0 I20.9 No current symptoms [id number] Michelle Quiñonez . MD [facility], [facility], [place] [address] [place] [address] 06/28/2022 15:48:12 06/28/2022 16:26:01 Cyst of skin 585702827 L72.9 R upper back x monthsNo tenderness , is not infectedNo n purulent thick discharge expressed w/ light pressure todayRefer to gen surg for ? removal as discussedM onitor for s/s infection ongoing [id number] Michelle Quiñonez . MD [facility], [facility], [address] [place] [address] 09/18/2022 08:58:11 09/19/2022 17:04:37 Adult health examination 909293170 Z00.00 Mammo 01/2021 q2yr, orderedPap UTD 02/2022 recall 5 yearsColo UTD 09/2020 repeat 5 years BP at goalLabs UTDRec stay UTD covid boosters, flu shots annually 6 mo MM, sooner prn Depression screening 171 227579 Z13.31 depression screening tool administer ed, Screening for alcohol abuse 998035305 Z13.39 Alcohol use screening tool administer ed, 03/09 Mixed hyperlipidemia 267 446255 E78.2 LDL goal <70 due to CAD, recent LDL 77Continue statin, zetiaEncou raged to discuss w/ cardiologi st at upcoming visitC/t lifestyle mods Coronary arteriosclerosis 78482854 I25.10 S/p NSTEMI and 3 vessel CABG 05/10/[address] Kellie strong once/yearN o exertional symptoms, no anginaBP at goalTaking meds as prescribed Continue asa, metoprolol , statin, zetia Migraine without aura 56 847104 G43.009 Not currently endorsingA mitriptyli ne daily Benign jessica plasm of choroid 01533900 D31.32 Follows with eye doc Screening mammography 24 303451 Z12.31 Angina pectoris 75947204 0 I20.9 No current symptoms [id number] Sung Bryant MD , [facility], [address] [place] [address] 01/21/2023 08:58:48 01/21/2023 09:26:25 Localized eruption of skin 026997571 R21 Patients presents for evaluation of rash consistent with: collin Treated with: ketoconazo le and nystatin powder Follow up if rash is not improving or with other concerns. [id number] Lulú Mccarthy MD , [facility], OFFICE [address] [place] [address] 03/21/2023 15:22:49 03/22/2023 09:38:55 Coronary arteriosclerosis 54071936 I25.10 Almost 5yrs s/p NSTEMI, CABG x 3. LDL not quite at goal despite max dose rosuvastat in + ezetimibe. Encouraged to eat more plant-base d diet, continue exercise. Screening mammography 24 897063 Z12.31 Scheduled for 05/15/23 Angina pectoris 94008221 0 I20.9 See above. No recurrence on regimen of ASA, BB, statin, ezetimibe. Mixed hyperlipidemia 267 033599 E78.2 LDL not quite at goal < 70 despite max dose rosuvastat in + ezetimibe. Encouraged plant based diet and f/u lipids q6mo. Tinnitus of left ear 066 6215798 106 H93.12 [id number] Bruna Enriquez MD , [facility], OFFICE [address] [place] [address] 06/21/2023 15:56:53 06/21/2023 16:49:15 Achilles tendinitis 71533216 M76.60 2 years of worsening pain along bilateral achilles tendons, worse with walking, not responsive to rest, ice/heat, elevation, Tylenol, heel insertsS/p MS and CABG on aspirin -- avoiding NSAIDsWill refer to sports medicine, PT for resistance trainingAv oid excessive loading like jumping, sprinting [id number] Bri Ortiz MD Sports Medicine, [facility] [address] [place] [place] [address] 07/30/2023 13:35:22 07/30/2023 14:52:28 Achilles tenosynovitis 020949882 M65.869 Enedelia is a 53-year-ol d female with bilateral ankle pain due to mid substance Achilles tendinosis . I discuss this diagnosis with her today as well as discussing options for treatment. We discussed physical therapy, the use of heel lifts, nitroglyce rin patches, and potential surgery. Her son is studying sports medicine and from her descriptio n is graduating as an sharepoint trainer. She would like to have him instruct her in physical therapy. We discussed the pros and cons of having a family member assist with physical therapy and I did offer her a referral to formal therapy which she declined. I printed out a copy of physical therapy instructio pablo to provide for her son. Enedelia will try wearing heel lifts to see if this offloads her Achilles tendon. She will plan to follow up with me in 12 weeks for reevaluati on if her symptoms are not improving. [id number] BURTON PATE MD , [facility], [address] [place] [address] 06/10/2024 15:17:40 06/11/2024 13:34:23 Adult health examination 273041652 Z00.00 Glenna patient, she is a triplet Mom!!Her kids are grown and out of the house. 5 year recall for colonoscop y .5 year recall on PAP (done 2022) due 2027. Mammo due September 2024 see below. HCP on file. never smoker Depression screening 171 548843 Z13.31 depression screening tool administer ed negative Screening for alcohol abuse 103363245 Z13.39 Alcohol use screening tool administer ed; almost never drinks ETOH, only rare special occasion. Immunization due 8680959 08 Z23 pneumonia History of coronary artery bypass grafting 178389006 Z95.1 Reports some SOB, not sure if related to CAD;Follow s with Dr. Zack demarco; cardiologi st; has scheduled stress test next week. Cont ASA, BB, and statin. Benign jessica plasm of soft tissue 15375434 D22.9 Sent photo to Jaleesa KING to ask for curbside advice, on if she needs biopsy. Screening mammography 24 928367 Z12.31 due September, will do every 1.5 years. Mixed hyperlipidemia 267 938945 E78.2 c/w rosuvastat in and zetia; LDL at goal; recheck q 6 months. Obese class II 525891521 1 51065 E66.812 Want to ensure all risk factors for CV disease are well controlled .BP is at goal today.LDL is at goal. [id number] Bruna Enriquez MD , [facility], OFFICE [address] [place] [address] 07/23/2024 14:43:56 07/23/2024 16:25:46 Acute sinusitis 04935206 J01.90 2 weeks of green nasal discharge and cough with congestion and bilateral inner ear effusions on exam -- plan: treat with Augmentin x 5 days Health Concerns Section Related Observation LastModified by Organization Detai ls LastModified Time None Recorded Concern Status LastModified by Organization Details LastModified Time None Recorded Advance Directives Directive N: 10/26/2009 given form to c omplete Payers Encounter Date Sequence Insurance Name Policy Number Policy Lowe Covered Member ID Lowe Member ID Guarantor Name 03/21/2023 1 [facility]: [facility] [id number] Javed Allen [id number] Enedelia Allen 06/21/2023 1 [facility] Enedelia Allen [id number] Enedelia Allen 07/30/2023 1 [facility] Enedelia Allen [id number] Enedelia Allen 06/10/2024 1 [facility] Enedelia Allen [id number] Enedelia Allen 07/23/2024 1 [facility] Enedelia Allen [id number] Enedelia Allen Notes Date Note Type Note Provider Name and Address Organization Details Recorded Time 4 text/html [facility] Coronary Artery Disease F/UReported bypatient.Duration:chronic ; diagnosed 2019 Control:No episodes of chest pain or pressure; [...] to care Context:Nonsmoker; No peripheral vascular disease (26147); No diabetes; No carotid artery stenosis Associated [...] manage conditionNotes: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 Sleep depends on work stress. Gets max 6hr/night during school yr, and 8-9hr/night during summer.Denies home stressors. Went 6mo without menses. LMP 03/10 and still spotting.Not currently having hot flashes. 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 She denies any injuries. She has never had any previous ankle or foot surgery or injections. Bri Ortiz MD [address] [place] [address], [phone], [facility] 07/30/2023 14:50:32 5 text/html 54F Wellness. Worries about spot on left cheek / face; not a sun worshiper; minimal sunburns, wears SPF 50 plus. 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 to ; home life is good.Four grown kids. Not feeling empty nest sadness. LLOYD PEREZ PA-C [address] [place] [address], [phone], [facility] 06/10/2024 18:06:19 5 text/html Green discharge from nose and with coughing x 2 weeks - a lotCoughNo fever, GUERRERO, Bruna Enriquez MD [address] [place] [address], [phone], [facility] 07/23/2024 15:33:26 OBGyn Episode No OBEpisode recorded.
--- NOTE | 2024-07-24 12:33 | CA_ITS ---
Transthoracic Echocardiogram Patient (Last, First, Middle): Enedelia Allen, Gender: Female Date of : 1970 Age: 54 Procedure Date: 07/24/2024 Procedure Type: Transthoracic Echocardiogram Location: OP Height: 165.1 cm Weight: 90.72 kg BSA: 1.98 m2 Heart Rate: bpm BP: 118 / 78 mmHg Electronic Publishing Specialist: TO Referring MD: Jazzmine Hilliard [employer] Symptoms: I25.10 - Atherosclerotic heart disease of [place] coronary artery without... Study Quality: Fair, contrast Conclusions: - 1. Normal LV ejection fraction 55-60% 2. Normal cardiac valvular Dopplers 3. No gross pericardial effusion Findings Procedure Information Contrast agent, definity, is being given per protocol without apparent complications. Left Ventricle Normal left ventricular size, thickness, and systolic function. The visually estimated ejection fraction is between 55-60%. There is paradoxical septal motion consistent with post-operative status. Spectral Doppler is indicative of a normal filling pattern. Wall Motion Rest Echo Findings The basal inferior and basal inferoseptal segments are hypokinetic. All other scored wall segments showed normal motion. Right Ventricle Normal right ventricular cavity size. There is moderately decreased right ventricular systolic function. Atria Both atria are normal in size. There is no evidence of interatrial shunt. Aortic Valve Normal aortic valve structure and function. There is no aortic valve stenosis. There is no aortic valve regurgitation. Mitral Valve Normal mitral valve structure and function. There is mild mitral annular calcification. There is trace mitral valve regurgitation. There is no mitral valve stenosis. Pulmonic Valve The pulmonic valve was not well visualized. Tricuspid Valve Likely normal tricuspid valve structure and function. Tricuspid regurgitation envelope is inadequate for calculation of right ventricular systolic pressure. Normal right atrial pressure. Great Vessels All visible segments of the aorta are normal in size. There is no dilatation of the ascending aorta measuring 3.30 cm. Small plaque is seen in the sino tubular ridge. Venous The inferior vena cava is normal in size and collapses greater than 50% with inspiration. Pericardium/Pleural There is no evidence of pericardial effusion. Prior Study Comparison No significant change compared to prior study dated: 08/02/2018. Measurements 2D Linear Measurements IVSd: 0.79 0.6-0.9/0.6-1.0 cm LVIDd: 4.75 3.9-5.3/4.2-5.9 cm LVIDd Index: 2.40 2.4-3.2/2.2-3.1 cm/m2 LVIDs: 2.90 2.0-3.6 cm LVPWd: 0.80 0.7-1.1 cm LA Diam: 3.80 2.7-3.8/3.0-4.0 cm LAIDs Index: 1.92 1.5-2.3 cm/m2 LV Mass: 153.07 67-162/88-224 g LV Mass Index: 77.31 43-95/49-115 g/m2 LVOT Diam: 2.20 3.0+(-)1.3 cm 2D Systolic Function EF 4C: 56.00 >55% EF 2C: 61.30 >55% EF BiP: 59.60 >55% Mitral Valve MV Pk E: 0.79 MV PK A: 0.52 MV Decel Time: 196.00 E/A: 1.50 E'Lateral: 11.60 E'Medial: 5.44 E/E' Med: 14.60 E/E' Lat: 6.80 PHT: 58.00 MVA PHT: 3.79 Decel [place]: 4.03 Aortic Valve AoV Pk Mauro: 1.49 AoV Mn Mauro: 1.04 AoV VTI: 0.29 AoV Pk Grad: 9.00 Aov Mn Grad: 5.00 DONALDO Cont.VTI: 2.13 LVOT LVOT Pk Mauro: 0.85 LVOT Mn Mauro: 0.55 LVOT VTI: 0.16 LVOT Pk Grad: 3.00 LVOT Mn Grad: 1.00 LVOT Diam: 2.20 LVOT Area: 3.80 Diastolic Function MV Pk E: 0.79 MV Pk A: 0.52 E/A: 1.50 E'Medial: 5.44 E/E' Med: 14.60 E' Laterial: 11.60 E/E' Lat: 6.80 Right Ventricle TAPSE (mm): 13.10 TVS' Mauro: 10.40 Tricuspid Valve RA Press: 3.00 Great Vessels Aorta Sinus of Valsalva: 3.16 2.0-3.5 cm Ao Asc: 3.30 2.1-3.4 cm Updated in Other Vendor System with Status of Final Aman Cabrera MD electronically signed on 07/25/2024 11:52:36 AM with status of Final
== END ==
LOC: HO.CARD 12:28
PROVIDERS: Visit Provider Nurse Practitioner Family
DX: R06.02 Shortness of breath (principal); I25.10 Atherosclerotic heart disease of native coronary artery without angina pectoris; R00.2 Palpitations; Z95.1 Presence of aortocoronary bypass graft
CPT/HCPCS: 93242; 93306; Q9957

== ENCOUNTER → 2024-07-24 12:33 | Outpatient (BNV) | payer OTHER, SELFPAY | PROVIDERS: Visit Provider Internal Medicine Cardiovascular Disease | DX: I34.81 Nonrheumatic mitral (valve) annulus calcification (principal); I25.10 Atherosclerotic heart disease of native coronary artery without angina pectoris; Z98.890 Other specified postprocedural states | CPT/HCPCS: 93306 ==